=== PATIENT | female | born 1960 | race Caucasian/White ===

== ENCOUNTER 2017-08-27 09:59 | Day surgery (SDC) | payer OTHER ==
--- NOTE | 2017-08-26 09:16 | RAD REPORT ---
EXAM DESCRIPTION: RADOP - Outpt Chest Pa/Lat (2 Views) - 08/26/2017 8:43 am CLINICAL HISTORY: Preop chest, pending cholecystectomy COMPARISON: January 2014 TECHNIQUE: PA and lateral views of the chest were obtained. FINDINGS: The lungs are clear of a focal mass, consolidation or failure. Heart size is normal and c entral vasculature is within normal limits. No pleural effusion or pneumothorax seen. No acute bony f inding noted. No acute aortic finding. IMPRESSION: No acute cardiopulmonary process. No significant change from comparison.
[2017-08-26 10:28] LABS: Absolute Lymphocytes (CBC) 1.6 K/uL (0.7-4.9); Absolute Monocytes 0.4 K/uL (0.1-1.3); Absolute Neutrophil 2.7 K/uL (1.8-8.0); Basophils % 0.6 % (0-1.3); Eosinophils % 2.3 % (0-4.4); Hematocrit 37.4 % (36.0-45.0); Lymphocytes % 33.4 % (15.3-44.8); MCH 25.8 pg (27.0-35.0); MCV 79.9 fL (80-100); Monocytes % 8.5 % (3.3-12.3); RBC Red Blood Cell Count 4.68 M/uL (3.86-4.86)
[2017-08-26 10:30] LABS: Potassium 4.3 mEq/L (3.6-5.0)
--- NOTE | 2017-08-26 12:42 | EKG ---
Test Date: 2017-08-26 Test Time: 08:24:08 Clinical Safety Manager: JOSHUA MEASUREMENT RESULTS: Intervals: Rate: 77 OK: 164 QRSD: 102 QT: 382 QTc: 432 [place]: P: 17 OK: 164 QRS: 16 T: 36 INTERPRETIVE STATEMENTS: Normal sinus rhythm Normal ECG Compared to ECG 02/09/2014 17:18:59 No significant changes Electronically Signed On 08-26-17 12:41:48 CDT by Davis Wood
[2017-08-27] MEDS ORDERED: NA CHLORIDE 0.9% 1,000 ML ONE ×2 (10:26→11:58)
[2017-08-27] MEDS ORDERED: PROPOFOL 200 MG/20 ML VIAL IV ONE (10:45)
[2017-08-27] MEDS ORDERED: FENTANYL CITR 100 MCG/2 ML ONE (10:46)
[2017-08-27] MEDS ORDERED: ROCURONIUM 50 MG/5 ML VIAL IV ONE (10:46)
[2017-08-27] MEDS ORDERED: MIDAZOLAM HCL 2 MG/2 ML INJ ONE (10:46)
[2017-08-27] MEDS ORDERED: LIDOCAINE 2% MPF 5 ML VIAL ONE (10:46)
[2017-08-27] MEDS ORDERED: CEFOXITIN/SWI 1gm 1 GM/10 ML SYR ONE (10:47)
[2017-08-27] MEDS ORDERED: ONDANSETRON 4 MG/2 ML VIAL ONE ×2 (11:30→13:35)
[2017-08-27] MEDS ORDERED: NS 0.9% VIAL 10 ML ONE (11:38)
[2017-08-27] MEDS ORDERED: Phenylephrine HCl 10 MG/ML 1 ML VIAL ONE (11:38)
[2017-08-27] MEDS ORDERED: NEOSTIGMINE 1 MG/ML -5 ML SYRINGE ONE (11:54)
[2017-08-27] MEDS ORDERED: DIPHENHYDRAMINE 50 MG/ML VIAL ONE ×2 (11:54→11:55)
[2017-08-27] MEDS ORDERED: GLYCOPYRROLATE 0.2 MG/ML SYR ONE ×2 (11:55→12:01)
[2017-08-27] MEDS ORDERED: Mastisol Adhesive Liq ONE (12:00)
[2017-08-27] MEDS: MEPERIDINE HCL 50 MG/ML AMP ONE ×2 (12:08→12:20)
[2017-08-27] MEDS: MEPERIDINE HCL 25 MG/0.5 ML ONE ×2 (12:30→12:40)
[2017-08-27] MEDS ORDERED: PROMETHAZINE 25 MG/ML VIAL ONE (12:38)
[2017-08-27 13:14] VITALS: TEMP 98
[2017-08-27 13:38] VITALS: BP 133/84; O2SAT 96
[2017-08-27] MEDS ORDERED: HYDROCODONE/APAP 7.5/325 MG TAB ONE (13:55)
--- NOTE | 2017-08-27 21:39 | OP ---
Date of Procedure: 08/27/2017 Surgeon: Lamine Sher MD Medical Receptionist: Sigrid Merrill, certified REAL ESTATE DIRECTOR. Preoperative Diagnosis: Chronic cholecystitis. Biliary dyskinesia. Postoperative Diagnosis: Chronic cholecystitis. Biliary dyskinesia. Procedure: Laparoscopic cholecystectomy. Estimated Blood Loss: Minimal. Specimen: Gallbladder. Finding: As above. Anesthesia: General. Complications: None. Disposition: The patient tolerated the procedure in stable condition and was taken to Recovery in go od general condition. Procedure In Detail: The patient was brought to the OR and placed in the supine position. General a nesthesia begun. The patient was prepped and draped in usual sterile fashion. Marcaine 0.5% was inf iltrated locally. A 15-blade was used to make a 2 cm supraumbilical midline incision. Subcutaneous tissue divided. The fascia was identified and divided. A #1 Vicryl stay suture was placed. Periton eal cavity was entered with blunt dissection. A 12-mm trocar was placed into the peritoneal cavity u nder direct vision. Pneumoperitoneum was established. Then, three 5-mm trocars placed were; one in the epigastrium just to the right of midline and two in the right subcostal region. Laparoscopy reve aled chronic inflammation of the gallbladder. Fundus retracted superiorly. Infundibulum identified, retracted inferolaterally. Cystic duct and cystic artery were clearly identified with blunt dissect ion. Clips placed. Both structures divided. Cautery was used to remove the gallbladder from the li nino bed. Bleeding on the liver bed was controlled with cautery. The gallbladder was retrieved throu gh the umbilicus via an EndoCatch bag. Right upper quadrant was irrigated. Effluent was clear. No evidence of bleeding or bile leakage appreciated. Subsequently, all trocars were removed under direc t vision. Stay sutures were tied to each other to approximate the fascial defect. Subcutaneous woun ds were irrigated. Bleeding controlled with cautery. A 3-0 chromic used to approximate the subcutan eous tissue and close skin. Sterile dressing was applied. The patient was awakened and taken to Rec overy in good general condition. DISCHARGE NOTE The patient will go to Day Surgery and home when stable. Disposition: Home. Condition: Stable. Discharge Instructions: Resume home medications and diet. Activity as tolerated. No heavy lifting. Remove outer dressing in 2 days. Shower. Keep wound clean and dry. Keep Steri-Strips on at all t imes. Incentive spirometry is ordered. Tylenol No. 3 one tablet p.o. q.4 p.r.n. pain. Follow up in my office in a week. Call for appointment. ETHAN/AZAEL Voice ID: [id number] Report ID: [id number]
== END 2017-08-27 14:00 | disposition home or self-care (01) ==
LOC: OR 09:59
PROVIDERS: ATTEND Surgery
PROC: 0FT44ZZ Resection of Gallbladder, Percutaneous Endoscopic Approach (ICD-10-PCS; principal; 2017-08-27 11:15)
DX: K81.1 Chronic cholecystitis (principal); K82.8 Other specified diseases of gallbladder; E11.9 Type 2 diabetes mellitus without complications; I10 Essential (primary) hypertension; K21.9 Gastro-esophageal reflux disease without esophagitis; E66.9 Obesity, unspecified
CPT/HCPCS: 36415; 71046; 80048; 82962; 85025; 88304; 88305; 93005; J2175; J2250; J2370; J2405; J2550; J2710; J3010; J7030

== ENCOUNTER 2018-03-31 17:01 | Inpatient (IN) | payer OTHER ==
--- NOTE | 2018-03-31 17:52 | RAD REPORT ---
EXAM DESCRIPTION: CT - Stone Protocol - 03/31/2018 5:42 pm CLINICAL HISTORY: Flank pain. ABD PAIN COMPARISON: Abdomen Pelvis W Contrast dated 07/26/2017; Cholangiogram dated 03/27/2018 TECHNIQUE: Axial images were obtained without oral or IV contrast. Lack of contrast limits solid org an and vascular assessment. The [id number] spans the entirety of the system partially obscuring uppermost abdomen and lung bases. Coronal reformatted images were obtained and reviewed. All CT scans are performed using dose optimization technique as appropriate and may include automated exposure control or mA/KV adjustment according to patient size. FINDINGS: The lower lung flores are clear. Cholecystectomy clips. Imaged portions of the liver and spleen show no suspicious findings on non-contrast imaging. The panc reas and adrenal glands are normal. No pathologic lymphadenopathy in the abdomen or pelvis. No urinary tract stones or obstructive uropathy. No bowel obstruction, free air, free fluid or abscess. Normal appendix noted.Scattered colonic divert iculosis without diverticulitis. Moderate lumbosacral degenerative change. IMPRESSION: No urinary tract stones or obstructive uropathy. Colonic diverticulosis without diverticulitis.
[2018-03-31 17:54] LABS: Absolute Lymphocytes (CBC) 2.3 K/uL (0.7-4.9); Absolute Monocytes 0.7 K/uL (0.1-1.3); Absolute Neutrophil 5.4 K/uL (1.8-8.0); Basophils % 0.9 % (0-1.3); Eosinophils % 1.1 % (0-4.4); Hematocrit 39.3 % (36.0-45.0); Lymphocytes % 27.2 % (15.3-44.8); MCH 26.7 pg (27.0-35.0); MCV 80.7 fL (80-100); MPV 8.9 fL (7.6-11.3); Monocytes % 7.8 % (3.3-12.3); RBC Red Blood Cell Count 4.87 M/uL (3.86-4.86)
[2018-03-31] MEDS ORDERED: FENTANYL CITR 100 MCG/2 ML ONE ×2 (18:00→21:00)
[2018-03-31] MEDS ORDERED: ONDANSETRON 4 MG/2 ML VIAL ONE ×2 (18:00→21:00)
[2018-03-31] MEDS ORDERED: NA CHLORIDE 0.9% 1,000 ML ONE (18:00)
[2018-03-31 18:04] LABS: Bilirubin Direct 0.1 mg/dL (0-0.2); Bilirubin Total 0.4 mg/dL (0.2-1.0); Potassium 3.5 mmol/L (3.5-5.1); Protein, Total 8.2 g/dL (6.4-8.2)
--- NOTE | 2018-03-31 19:15 | EDPHYS ---
Physician Documentation [facility] Name: Cristina Cantrell Age: 58 yrs Sex: Female : 1960 Arrival Date: 03/31/2018 Time: 17:05 Bed 5 Private MD: ED Physician Clay Moscoso HPI: 03/31 19:02 This 58 yrs old Female presents to ER via Ambulatory with complaints of gs Abdominal Pain, Vomiting/Diarrhea. 19:02 The patient presents to the emergency department with nausea, vomiting, diarrhea, gs abdominal pain. Onset: The symptoms/episode began/occurred 3 week(s) ago. Possible causes: unknown. The symptoms are aggravated by nothing. The symptoms are alleviated by nothing. Associated signs and symptoms: Pertinent negatives: fever. Severity of symptoms: At their worst the symptoms were moderate in the emergency department the symptoms are unchanged. The patient has experienced similar episodes in the past, a few times. The patient has been recently seen by a physician: Dr. becerra. Historical: - Allergies: 17:08 No Known Allergies; aj - Home Meds: 17:08 lisinopril Oral [Active]; Metformin Oral [Active]; Stool Softener Oral [Active]; aj Vitamin D Oral [Active]; Trintellix Oral [Active]; Dexilant 30 mg oral CpDB 1 cap once daily [Active]; - PMHx: 17:08 Diabetes - NIDDM; Hypertension; Migraines; aj - PSHx: 17:08 Hysterectomy; foot - right; aj - Immunization history:: Adult Immunizations up to date. - Social history:: Smoking status: Patient/guardian denies using tobacco. - Ebola Screening: : Patient negative for fever greater than or equal to 101.5 degrees Fahrenheit, and additional compatible Ebola Virus Disease symptoms Patient denies exposure to infectious person Patient denies travel to an Ebola-affected area in the 21 days before illness onset No symptoms or risks identified at this time. ROS: 19:02 All other systems are negative. gs Exam: 19:02 Head/Face: Normocephalic, atraumatic. Eyes: Pupils equal round and reactive to light, gs extra-ocular motions intact. Lids and lashes normal. Conjunctiva and sclera are non-icteric and not injected. Cornea within normal limits. Periorbital areas with no swelling, redness, or edema. ENT: Nares patent. No nasal discharge, no septal abnormalities noted. Tympanic membranes are normal and external auditory canals are clear. Oropharynx with no redness, swelling, or masses, exudates, or evidence of obstruction, uvula midline. Mucous membranes moist. Neck: Trachea midline, no thyromegaly or masses palpated, and no cervical lymphadenopathy. Supple, full range of motion without nuchal rigidity, or vertebral point tenderness. No Meningismus. Chest/axilla: Normal chest wall appearance and motion. Nontender with no deformity. No lesions are appreciated. Cardiovascular: Regular rate and rhythm with a normal S1 and S2. No gallops, murmurs, or rubs. Normal PMI, no JVD. No pulse deficits. Respiratory: Lungs have equal breath sounds bilaterally, clear to auscultation and percussion. No rales, rhonchi or wheezes noted. No increased work of breathing, no retractions or nasal flaring. Back: No spinal tenderness. No costovertebral tenderness. Full range of motion. Skin: Warm, dry with normal turgor. Normal color with no rashes, no lesions, and no evidence of cellulitis. MS/ Extremity: Pulses equal, no cyanosis. Neurovascular intact. Full, normal range of motion. Neuro: Awake and alert, GCS 15, oriented to person, place, time, and situation. Cranial nerves II-XII grossly intact. Motor strength 5/5 in all extremities. Sensory grossly intact. Cerebellar exam normal. Normal gait. 19:02 Constitutional: The patient appears alert, awake. 19:02 Abdomen/GI: Palpation: mild abdominal tenderness, in all quadrants, rebound tenderness, is not appreciated. Vital Signs: 17:08 BP 127 / 78; Pulse 99; Resp 17; Temp 97.2; Pulse Ox 99% on R/A; Weight 122.47 kg; aj Height 5 ft. 11 in. (180.34 cm); 17:27 BP 128 / 75; Pulse 98; Resp 18; Pulse Ox 98% on R/A; hj 18:21 BP 102 / 69; Pulse 80; Resp 15; Pulse Ox 97% on R/A; hb 19:15 BP 115 / 70; Pulse 80; Resp 16; Pulse Ox 97% on R/A; ea 20:45 BP 110 / 68; Pulse 78; Resp 16; Pulse Ox 98% on R/A; ea 21:30 BP 120 / 70; Pulse 82; Resp 17; Temp 97.4; Pulse Ox 97% on R/A; Pain 2/10; ea 17:08 Body Mass Index 37.66 (122.47 kg, 180.34 cm) aj MDM: 17:32 Patient medically screened. 19:02 Differential diagnosis: Nonspecific abd pain, gastritis, viral gastroenteritis, gs gastroenteritis. Data reviewed: vital signs, nurses notes. Physician consultation: Hussein Becerra MD would like admission per Dr. Vinnie Jasmine MD. 03/31 17:33 Order name: Basic Metabolic Panel; Complete Time: 18:40 03/31 17:33 Order name: CBC with Diff; Complete Time: 18:40 03/31 17:33 Order name: Hepatic Function; Complete Time: 18:40 03/31 17:33 Order name: Lipase; Complete Time: 18:40 03/31 17:33 Order name: CDIFF 03/31 17:33 Order name: Stool Culture 03/31 17:33 Order name: CT Stone Protocol; Complete Time: 17:57 03/31 19:24 Order name: CONS Physician Consult [facility] 03/31 19:24 Order name: Giardia Antigen Screen EDIA 03/31 17:33 Order name: IV Saline Lock; Complete Time: 17:34 03/31 17:33 Order name: Labs collected and sent; Complete Time: 17:34 Administered Medications: 17:51 Drug: fentaNYL (PF) 50 mcg Route: IVP; Site: right antecubital; hj 19:00 Follow up: Response: No adverse reaction; Pain is decreased ea 17:51 Drug: Zofran 4 mg Route: IVP; Site: right antecubital; hj 19:00 Follow up: Response: No adverse reaction; Marked relief of symptoms ea 17:51 Drug: NS 0.9% 1000 ml Route: IV; Rate: 1 bolus; Site: right antecubital; hj 19:15 Follow up: Response: No adverse reaction; IV Status: Completed infusion; IV Intake: ea 1000ml 21:00 Drug: Zofran 4 mg Route: IVP; Site: right antecubital; ea 21:35 Follow up: Response: No adverse reaction; Marked relief of symptoms ea 21:00 Drug: fentaNYL (PF) 50 mcg Route: IVP; Site: right antecubital; ea 21:35 Follow up: Response: No adverse reaction; Marked relief of symptoms; Pain is decreased ea Disposition: 03/31/18 19:14 Hospitalization ordered by Vinnie Jasmine for Observation. Preliminary diagnosis are Vomiting, Diarrhea, unspecified. - Bed requested for Telemetry/MedSurg (observation). - Status is Observation. ea - Condition is Stable. - Problem is new. - Symptoms have improved. UTI on Admission? No Signatures: Dispatcher [employer] EDMS Kristin Maciel, RN Mary Anne Hernandez ms Josué, Russ, RN Janie Banerjee RN Clay Iyer ea, MD MD gs Corrections: (The following items were deleted from the chart) 20:49 19:14 Hospitalization Ordered by Vinnie Jasmine MD for Observation. Preliminary ms diagnosis is Vomiting; Diarrhea, unspecified. Bed requested for Telemetry/MedSurg (observation). Status is Observation. Condition is Stable. Problem is new. Symptoms have improved. UTI on Admission? No. gs 20:49 20:49 03/31/2018 19:14 Hospitalization Ordered by Vinnie Jasmine MD for Observation. ms Preliminary diagnosis is Vomiting; Diarrhea, unspecified. Bed requested for Telemetry/MedSurg (observation). Status is Observation. Condition is Stable. Problem is new. Symptoms have improved. UTI on Admission? No. ms 21:42 20:49 03/31/2018 19:14 Hospitalization Ordered by Vinnie Jasmine MD for Observation. ea Preliminary diagnosis is Vomiting; Diarrhea, unspecified. Bed requested for Telemetry/MedSurg (observation). Status is Observation. Condition is Stable. Problem is new. Symptoms have improved. UTI on Admission? No. ms
--- NOTE | 2018-03-31 19:15 | ER ---
Nurse's Notes [facility] Name: Cristina Cantrell Age: 58 yrs Sex: Female : 1960 Arrival Date: 03/31/2018 Time: 17:05 Bed 5 Private MD: Diagnosis: Vomiting;Diarrhea, unspecified Presentation: 03/31 17:06 Presenting complaint: Patient states: Diarrhea, nausea, right side abdominal pain for 3 aj weeks with worsening symptoms 1 week ago. Patient also reports bleeding from rectum. Transition of care: patient was not received from another setting of care. Onset of symptoms was March 10, 2018. Risk Assessment: Do you want to hurt yourself or someone else? Patient reports no desire to harm self or others. Initial Sepsis Screen: Does the patient meet any 2 criteria? No. Patient's initial sepsis screen is negative. Does the patient have a suspected source of infection? No. Patient's initial sepsis screen is negative. Care prior to arrival: None. 17:06 Method Of Arrival: Ambulatory aj 17:06 Acuity: JOON 3 aj Triage Assessment: 17:08 General: Appears in no apparent distress. uncomfortable, Behavior is calm, cooperative, aj appropriate for age. Pain: Complains of pain in right upper quadrant and right lower quadrant. Neuro: Level of Consciousness is awake, alert, obeys commands, Oriented to person, place, time, situation, Appropriate for age. Respiratory: Airway is patent Respiratory effort is even, unlabored, Respiratory pattern is regular, symmetrical. GI: Abdomen is obese, Reports lower abdominal pain, upper abdominal pain, diarrhea, rectal bleeding, hemorrhoids, nausea. Derm: Skin is intact, is healthy with good turgor, Skin is pink, warm \T\ dry. normal. Historical: - Allergies: 17:08 No Known Allergies; aj - Home Meds: 17:08 lisinopril Oral [Active]; Metformin Oral [Active]; Stool Softener Oral [Active]; aj Vitamin D Oral [Active]; Trintellix Oral [Active]; Dexilant 30 mg oral CpDB 1 cap once daily [Active]; - PMHx: 17:08 Diabetes - NIDDM; Hypertension; Migraines; aj - PSHx: 17:08 Hysterectomy; foot - right; aj - Immunization history:: Adult Immunizations up to date. - Social history:: Smoking status: Patient/guardian denies using tobacco. - Ebola Screening: : Patient negative for fever greater than or equal to 101.5 degrees Fahrenheit, and additional compatible Ebola Virus Disease symptoms Patient denies exposure to infectious person Patient denies travel to an Ebola-affected area in the 21 days before illness onset No symptoms or risks identified at this time. Screenin:16 Abuse screen: Denies threats or abuse. Denies injuries from another. Nutritional hj screening: No deficits noted. Tuberculosis screening: No symptoms or risk factors identified. Fall Risk None identified. Assessment: 17:16 GI: Bowel sounds present X 4 quads. Abd is soft Abdomen is tender to palpation. hj 17:38 Reassessment: wheeled to CT:. hj 18:06 Reassessment: Patient and/or family updated on plan of care and expected duration. Pain hj level reassessed. Patient is alert, oriented x 3, equal unlabored respirations, skin warm/dry/pink. awaiting results and POC:. 18:07 Reassessment: CT stone neg;. hj 18:45 Reassessment: Patient appears in no apparent distress at this time. Patient and/or hb family updated on plan of care and expected duration. Pain level reassessed. Patient is alert, oriented x 3, equal unlabored respirations, skin warm/dry/pink. 19:18 General: Appears in no apparent distress. Behavior is calm, cooperative, appropriate ea for age. Pain: Denies pain. Neuro: Level of Consciousness is awake, alert, obeys commands, Oriented to person, place, time, situation. Cardiovascular: Patient's skin is warm and dry. Respiratory: Airway is patent Respiratory effort is even, unlabored, Respiratory pattern is regular, symmetrical, Breath sounds are clear. GI: Bowel sounds present X 4 quads. Abdomen is tender to palpation X 4 quads. Derm: Skin is pink, warm \T\ dry. 20:27 Reassessment: Patient and/or family updated on plan of care and expected duration. Pain ea level reassessed. Patient is alert, oriented x 3, equal unlabored respirations, skin warm/dry/pink. 21:21 Reassessment: Report given to Shania ALVARENGA ea 21:33 Reassessment: Patient and/or family updated on plan of care and expected duration. Pain ea level reassessed. Patient is alert, oriented x 3, equal unlabored respirations, skin warm/dry/pink. Vital Signs: 17:08 BP 127 / 78; Pulse 99; Resp 17; Temp 97.2; Pulse Ox 99% on R/A; Weight 122.47 kg; aj Height 5 ft. 11 in. (180.34 cm); 17:27 BP 128 / 75; Pulse 98; Resp 18; Pulse Ox 98% on R/A; hj 18:21 BP 102 / 69; Pulse 80; Resp 15; Pulse Ox 97% on R/A; hb 19:15 BP 115 / 70; Pulse 80; Resp 16; Pulse Ox 97% on R/A; ea 20:45 BP 110 / 68; Pulse 78; Resp 16; Pulse Ox 98% on R/A; ea 21:30 BP 120 / 70; Pulse 82; Resp 17; Temp 97.4; Pulse Ox 97% on R/A; Pain 2/10; ea 17:08 Body Mass Index 37.66 (122.47 kg, 180.34 cm) ED Course: 17:05 Patient arrived in ED. mr 17:07 Triage completed. aj 17:08 Arm band placed on left wrist. Patient placed in an exam room. aj 17:10 Clay Moscoso MD is Attending Physician. gs 17:15 Russ Moses RN is Primary Nurse. hj 17:17 Patient has correct armband on for positive identification. Placed in gown. Bed in low hj position. Call light in reach. Side rails up X 1. 17:27 No provider procedures requiring assistance completed. Initial lab(s) drawn, by me. hj Inserted saline lock: 22 gauge in right antecubital area, using aseptic technique. Blood collected. 17:[address] nj 17:42 CT Stone Protocol In Process Unspecified. EDMS 19:13 Vinnie Jasmine MD is Hospitalizing Provider. gs 21:23 Patient admitted, IV remains in place. ea Administered Medications: 17:51 Drug: fentaNYL (PF) 50 mcg Route: IVP; Site: right antecubital; hj 19:00 Follow up: Response: No adverse reaction; Pain is decreased ea 17:51 Drug: Zofran 4 mg Route: IVP; Site: right antecubital; hj 19:00 Follow up: Response: No adverse reaction; Marked relief of symptoms ea 17:51 Drug: NS 0.9% 1000 ml Route: IV; Rate: 1 bolus; Site: right antecubital; hj 19:15 Follow up: Response: No adverse reaction; IV Status: Completed infusion; IV Intake: ea 1000ml 21:00 Drug: Zofran 4 mg Route: IVP; Site: right antecubital; ea 21:35 Follow up: Response: No adverse reaction; Marked relief of symptoms ea 21:00 Drug: fentaNYL (PF) 50 mcg Route: IVP; Site: right antecubital; ea 21:35 Follow up: Response: No adverse reaction; Marked relief of symptoms; Pain is decreased ea Intake: 19:15 IV: 1000ml; Total: 1000ml. ea Outcome: 19:14 Decision to Hospitalize by Provider. gs 21:22 Admitted to Med/surg accompanied by tech, room 206, Report called to Shania BENSON ea 21:22 Condition: stable 21:22 Instructed on the need for admit, Demonstrated understanding of instructions. 21:42 Patient left the ED. ea Signatures: Dispatcher [employer] EDKristin Gonzalez, RN Sanjuanita Lopez Henry, RN RN hj Baxter, Heather, RN RN hb Jordan, Nathan nj Antunez, Elena, RN RN ea Starr, Gregory, MD MD
[2018-03-31] MEDS ORDERED: ONDANSETRON 4 MG/2 ML VIAL IV PRN (20:17)
[2018-03-31] MEDS ORDERED: MAGNESIUM HYDROXIDE 8% 30 ML PO PRN (20:17)
[2018-03-31 21:59] VITALS: BMI 38.3
[2018-03-31] MEDS: NA CHLORIDE 0.9% 1,000 ML IV SCH (22:34)
[2018-03-31 23:21] LABS: Urine Appearance CLEAR; Urine Bilirubin NEGATIVE (NEG); Urine Blood NEGATIVE (NEG); Urine Color YELLOW; Urine Glucose NEGATIVE (NEG); Urine Protein NEGATIVE (NEG); Urine Urobilinogen 0.2 mg/dL (0.2-1.0)
[2018-03-31 23:39] LABS: Urine Microscopic Reflex ORDER UMIC
[2018-04-01 00:33] LABS: Urine Bacteria <20 /HPF (<20); Urine Culture Reflex Order REFLEXED; Urine Mucus MOD /HPF (NONE SEEN); Urine RBC NONE SEEN /HPF (NONE SEEN)
[2018-04-01] MEDS: NA CHLORIDE 0.9% 1,000 ML IV SCH ×5 (05:11→23:40)
[2018-04-01] MEDS: ACETAMINOPHEN 500 MG TAB PO PRN (05:11)
[2018-04-01 05:12] LABS: Absolute Lymphocytes (CBC) 1.7 K/uL (0.7-4.9); Absolute Monocytes 0.5 K/uL (0.1-1.3); Absolute Neutrophil 2.4 K/uL (1.8-8.0); Basophils % 0.9 % (0-1.3); Hematocrit 33.3 % (36.0-45.0); Lymphocytes % 35.9 % (15.3-44.8); MCH 26.7 pg (27.0-35.0); MCV 80.1 fL (80-100); MPV 8.5 fL (7.6-11.3); Monocytes % 9.9 % (3.3-12.3); RBC Red Blood Cell Count 4.15 M/uL (3.86-4.86)
[2018-04-01 05:37] LABS: Albumin 3.3 g/dL (3.4-5.0); Bilirubin Total 0.4 mg/dL (0.2-1.0); Magnesium 1.9 mg/dL (1.8-2.4); Phosphorus 4.4 mg/dL (2.5-4.9); Potassium 3.5 mmol/L (3.5-5.1); Protein, Total 6.3 g/dL (6.4-8.2)
[2018-04-01] MEDS ORDERED: POTASSIUM CL SA 10 MEQ TAB PO ONE (06:06)
[2018-04-01] MEDS ORDERED: SUMATRIPTAN SUCC 6MG/0.5ML VIAL SQ ONE (06:11)
--- NOTE | 2018-04-01 06:19 | P.HP ---
Certification for Inpatient Patient admitted to: Observation With expected LOS: <2 Midnights Practitioner: I am a practitioner with admitting privileges, knowledge of patient current condition, hospital course, and medical plan of care. Services: Services provided to patient in accordance with Admission requirements found in Title 42 Section 412.3 of the Code of Federal Regulations Patient History Date of Service: 03/31/18 Reason for admission: Abdominal pain and intractable nausea and vomiting History of Present Illness: Patient is a 58-year-old female who is been having some abdominal discomfort along with intractable nausea and vomiting for the last 4-5 days. She saw her GI doctor in the did a MRCP which was negative. She is scheduled for follow-up this morning. On her follow-up appointment she was having nausea and vomiting and was told to go to the ER. In the emergency room her workup did not reveal any significant abnormalities. She did have an elevated lipase level. She had a history of cholecystectomy a few months ago. Since then she had been doing fine up until this episode of pain. Currently she is doing better with no new complaints. Will admit her to the hospital for observation and recheck her lipase level in the morning. If this is doing better and her pain is improved, we will advance her diet and if she tolerates possible discharge. Allergies No Known Allergies Allergy (Verified 03/31/18 23:07) Home Medications: Cetirizine HCl [Zyrtec] 10 mg PO DAILY 03/31/18 Docusate Sodium [Stool Softener] 100 mg PO DAILY 03/31/18 Doxycycline Monohydrate [Doxycycline Ir-Dr] 1 tab PO DAILY 03/31/18 Esomeprazole Mag Trihydrate [Nexium] 1 tab PO DAILY 03/31/18 Lisinopril/Hydrochlorothiazide [Lisinopril-Hctz 20-12.5 mg Tab] 1 tab PO DAILY 03/31/18 Metformin ER [Glucophage ER] 500 mg PO DAILY 03/31/18 Turmeric/Turmeric Root Extract [Turmeric 500 mg Capsule] 720 mg PO DAILY Vortioxetine Hydrobromide [Brintellix] 20 mg PO DAILY 03/31/18 - Past Medical/Surgical History Diabetic: Yes -: HTN -: diabetes type 2 -: migraine -: gerd -: EGD -: partial hysterectomy -: Cholecystectomy - Family History Mother Medical History: Diabetes, Cancer Father Medical History: Cancer - Social History Smoking Status: Never smoker Alcohol use: No CD- Drugs: No Caffeine use: Yes Place of Residence: Home Review of Systems 10-point ROS is otherwise unremarkable Physical Examination - Vital Signs Temperature: 97.3 F Blood Pressure: 117/62 Pulse: 63 Respirations: 18 Pulse Ox (%): 96 - Physical Exam General: Alert, In no apparent distress, Oriented x3 HEENT: Atraumatic, PERRLA, Mucous membr. moist/pink, EOMI, Sclerae nonicteric Neck: Supple, 2+ carotid pulse no bruit, No LAD, Without JVD or thyroid abnormality Respiratory: Clear to auscultation bilaterally, Normal air movement Cardiovascular: Regular rate/rhythm, Normal S1 S2, No murmurs Gastrointestinal: Normal bowel sounds, Soft and benign, Distended, Tenderness ( Epigastric tenderness) Musculoskeletal: No tenderness Integumentary: No rashes Neurological: Normal gait, Normal speech, Normal strength at 5/5 x4 extr, Normal tone, Sensation intact, Cranial nerves 3-12 intact, Normal affect Lymphatics: No axilla or inguinal lymphadenopathy - Studies Laboratory Data (last 24 hrs) 03/31/18 17:30: WBC 8.6 D, Hgb 13.0, Hct 39.3, Plt Count 275 D 03/31/18 17:30: Sodium 136, Potassium 3.5, BUN 21 H, Creatinine 1.00, Glucose 109 H, Total Bilirubin 0.4, AST 182 H, ALT 229 H, Alkaline Phosphatase 74, Lipase 497 H Assessment & Plan - Problems (Diagnosis) (1) Headache, migraine, intractable Current Visit: Yes Status: Acute (2) Nausea and vomiting Current Visit: No Status: Acute (3) Right upper quadrant abdominal pain Current Visit: No Status: Acute - Plan 1. Continue with IV hydration 2. Continue with IV antibiotics 3. Continue with pain control 4. NPO 5. General surgery consultation; may need endoscopy if pain is not improving 6. Serial H&H, and we will monitor CBC, BMP, LFTs and lipase along with electrolytes. 7. Will give her a dose of Imitrex subcutaneous. If her pain does not improve then she can take her own home medications. 8. GI and DVT prophylaxis Discharge Plan: Home Plan to discharge in: 48 Hours - Advance Directives Does patient have a Living Will: No Does patient have a Durable POA for Healthcare: No - Code Status/Comfort Care Code Status Assessed: Yes Code Status: Full Code Critical Care: No Time Spent Managing PTS Care (In Minutes): 50
[2018-04-01] MEDS: PANTOPRAZOLE 40MG TABLET PO SCH (06:48)
[2018-04-01] MEDS: HOME MED 1 EA UNK (Vortioxetine Hydrobromide [Trintellix] 20 MG) PO SCH (09:00)
[2018-04-01] MEDS: METFORMIN ER 500 MG TAB PO SCH (09:00)
[2018-04-01] MEDS ORDERED: HOME MED 1 EA UNK (Esomeprazole Mag Trihydrate [Nexium] 1 TAB) PO SCH (09:00)
[2018-04-01] MEDS: DOCUSATE NA 100 MG CAP PO SCH (09:00)
[2018-04-01] MEDS: ENOXAPARIN 40 MG/0.4 ML SQ SCH (09:00)
--- NOTE | 2018-04-01 12:45 | P.PN ---
Subjective Date of Service: 04/01/18 Chief Complaint: Abdominal pain and intractable nausea and vomiting Patient seen and examined at bedside. No family at bedside. Chart reviewed and Case discussed with nursing staff and Dr. becerra. Patient still complaining of diffuse abdominal pain, intermittent nausea. No episodes of diarrhea that she has not eaten anything so far. States she is hungry. She states that since her cholecystectomy 6 months ago, she has had intermittent diarrhea mostly after eating, intermittent nausea but in the past couple of days this has progressively worsened and she is now nauseous all the time even without food, still has diarrhea only after eating. Still complaining of diffuse abdominal pain and right lower quadrant abdominal cramping. Denies any chest pain, shortness of breath, fevers, chills, headache, vision changes. Review of Systems As noted above Gastrointestinal: Nausea, Vomiting, Abdominal Pain, Diarrhea, As per HPI Physical Examination - Vital Signs Temperature: 97.1 F Blood Pressure: 124/58 Pulse: 64 Respirations: 17 Pulse Ox (%): 95 - Physical Exam General: Alert, In no apparent distress HEENT: Atraumatic, PERRLA, EOMI Neck: Supple, JVD not distended Respiratory: Clear to auscultation bilaterally, Normal air movement Cardiovascular: Regular rate/rhythm, Normal S1 S2 Gastrointestinal: Non-distended, No rebound, No guarding, Tenderness (Diffuse tenderness on palpation) Musculoskeletal: No tenderness Integumentary: No rashes Neurological: Normal speech, Normal tone, Normal affect - Studies Laboratory Data (last 24 hrs) 03/31/18 17:30: WBC 8.6 D, Hgb 13.0, Hct 39.3, Plt Count 275 D 03/31/18 17:30: Sodium 136, Potassium 3.5, BUN 21 H, Creatinine 1.00, Glucose 109 H, Total Bilirubin 0.4, AST 182 H, ALT 229 H, Alkaline Phosphatase 74, Lipase 497 H Assessment And Plan - Plan This is a 58-year-old female with: - Abdominal pain: Per patient, this is a chronic issue that she has had since her cholecystectomy. Could be secondary to infectious versus IBD versus colonic etiology. CT with Colonic diverticulosis without diverticulitis. Advanced to clear liquid diet, will advance as tolerated. Lipase trending down, we will continue to monitor. Stool studies pending, will follow up GI consulted, recommendations appreciated. Pending EGD tomorrow. - Nausea/vomiting: Patient without any episodes of vomiting, though states she feels nauseous. Will continue Zofran as needed. - History of migraines: Stable, denies any headache at this time. She is status post 1 time dose of sumatriptan. Will continue to monitor. - History of hypertension: Patient with a history of hypertension, on lisinopril/hydrochlorothiazide at home. Will hold medication as her blood pressures have been in the low to normal range. Will restart medications as necessary. - Diabetes mellitus, type 2, without complication: Patient with a history of diabetes type 2 on metformin at home. Restart home metformin. Continue Accu-Cheks. - History of depression: Stable, restart home medication, vortioxetine 20 mg p.o. daily. DVT prophylaxis: Lovenox GI prophylaxis: Protonix Diet: Clear liquid diet, advance as tolerated Disposition: Pending EGD and symptomatic improvement. Physician Review: Patient Assessed, Agree with Above Assessment and Plan Time Spent Managing PTS Care (In Minutes): 45
[2018-04-01] MEDS: PROMETHAZINE 25 MG/ML VIAL IV PRN ×2 (13:08→21:58)
[2018-04-01] MEDS: CHOLESTYRAMINE/ASP 4 GM/PKT PO SCH (17:00)
[2018-04-02] MEDS: NA CHLORIDE 0.9% 1,000 ML IV SCH ×4 (02:54→21:10)
[2018-04-02] MEDS: PANTOPRAZOLE 40MG TABLET PO SCH (05:42)
[2018-04-02 05:55] LABS: Potassium 3.7 mmol/L (3.5-5.1)
[2018-04-02] MEDS ORDERED: KCL 20 MEQ/100 mL IVPB 20 MEQ/100 ML BAG IV SCH (07:30)
[2018-04-02] MEDS: HOME MED 1 EA UNK (Vortioxetine Hydrobromide [Trintellix] 20 MG) PO SCH (09:00)
[2018-04-02] MEDS ORDERED: HOME MED 1 EA UNK (Lisinopril/Hydrochlorothiazide [Lisinopril-Hctz 20-12.5 Mg Tab] 1 TAB) PO SCH (09:00)
[2018-04-02] MEDS ORDERED: NA CHLORIDE 0.9% 1,000 ML ONE (11:49)
[2018-04-02] MEDS ORDERED: PROPOFOL 200 MG/20 ML VIAL IV ONE (12:24)
[2018-04-02] MEDS ORDERED: LIDOCAINE 1% MPF 2 ML AMPULE ONE (12:24)
--- NOTE | 2018-04-02 12:52 | ENDO RPT ---
[address], [address] EGD PROCEDURE REPORT EXAM DATE: 04/02/2018 PATIENT NAME: Cristina Cantrell MR#: [id number] BIRTHDATE: 1960 ATTENDING: Hussein Reese Dr STATUS: inpatient - [facility] [employer] CONSULTANT: Jaqueline Park and Anahi Yang RN INDICATIONS: The patient is a 58 yr old Female here for an EGD due to nausea, mid epigastric abdominal pain, chronic unexplained diarrhea, and weight loss PROCEDURE PERFORMED: EGD with biopsy MEDICATIONS: Per Anesthesia. TOPICAL ANESTHETIC: none CONSENT: The patient understands the risks and benefits of the procedure and understands that these risks include, but are not limited to: sedation, allergic reaction, infection, perforation and/or bleeding. Alternative means of evaluation and treatment include, among others: physical exam, x-rays, and/or surgical intervention. The patient elects to proceed with this endoscopic procedure. DESCRIPTION OF PROCEDURE: During intra-op preparation period all mechanical medical equipment was checked for proper function. Hand hygiene and appropriate measures for infection prevention was taken. Procedure, possible complications, and alternatives including but not limited to the possibility of bleeding, perforation, tear, infection, sepsis, need for surgery, need for blood transfusion, and anesthesia related complications were explained to the patient. After the risks, benefits and alternatives of the procedure were thoroughly explained, Informed consent was verified, confirmed and timeout was successfully executed by the treatment team. The patient was placed in the left lateral position. The patient was anesthetized with topical anesthesia. Through the anesthetized oropharyngeal area, the scope was passed without any difficulty. The Pentax EG-[id number] ([id number]) endoscope was introduced through the mouth and advanced to the third portion of the duodenum. Retroflexed views revealed a small hiatal hernia. The gastroscope was then slowly withdrawn and removed. LA Class A esophagitis was found in the lower esophagus. A small hiatal hernia was found Mild gastritis was found in the body and the antrum of the stomach. Multiple biopsies were obtained and sent to pathology. A pedunculated polyp was found in the body of the stomach. With jumbo forceps, a biopsy was obtained and sent to pathology. Multiple erosions were found in the antrum. ADVERSE EVENTS: There were no complications. IMPRESSIONS: 1. LA Class A esophagitis in the lower esophagus 2. Small hiatal hernia 3. Mild gastritis in the body and the antrum of the stomach, s/p biopsies 4. Multiple ( 20) 2-9 mm sessile / pedunculated polyps in the body of the stomach, s/p biopsy 5. Multiple (3) erosions in the pre-pyloric antrum RECOMMENDATIONS: 1. await biopsy results 2. acid suppression therapy REPEAT EXAM: Hussein Reese Dr eSigned: Hussein Reese Dr 04/02/2018 12:43 PM cc: CPT CODES: ICD9 CODES: PATIENT NAME: Cristina Cantrell MR#: [id number]
[2018-04-02] MEDS ORDERED: LOPERAMIDE HCL 2 MG CAPSULE PO PRN (13:05)
--- NOTE | 2018-04-02 13:10 | P.PN ---
Subjective Date of Service: 04/02/18 Chief Complaint: Abdominal pain and intractable nausea and vomiting Patient seen and examined at bedside. No family at bedside. Chart reviewed and Case discussed with nursing staff and Dr. becerra. Patient still complaining of diffuse abdominal pain, intermittent nausea. Tried clear liquids yesterday though had diarrhea after clear liquids. She is pending the EGD today with Dr. stewart. Denies any chest pain, shortness of breath, fevers, chills, headache, vision changes. Review of Systems As noted above Physical Examination - Vital Signs Temperature: 98.3 F Blood Pressure: 141/77 Pulse: 66 Respirations: 18 Pulse Ox (%): 98 - Physical Exam General: Alert, In no apparent distress HEENT: Atraumatic, PERRLA, EOMI Neck: Supple, JVD not distended Respiratory: Clear to auscultation bilaterally, Normal air movement Cardiovascular: Regular rate/rhythm, Normal S1 S2 Gastrointestinal: Normal bowel sounds, Tenderness (Diffuse with deep palpation) Musculoskeletal: No tenderness Integumentary: No rashes Neurological: Normal speech, Normal tone, Normal affect Lymphatics: No axilla or inguinal lymphadenopathy Assessment And Plan - Plan This is a 58-year-old female with: - Abdominal pain: Per patient, this is a chronic issue that she has had since her cholecystectomy. Could be secondary to infectious versus IBD versus colonic etiology. CT with Colonic diverticulosis without diverticulitis. Advanced to clear liquid diet, will advance as tolerated. Lipase trending down, we will continue to monitor. C. diff negative. Other stool studies pending, will follow up. Pending C8-19 and viral study labs, will follow up. GI consulted, recommendations appreciated. Pending EGD today. - Nausea/vomiting: Patient without any episodes of vomiting, though states she feels nauseous. Will continue Zofran as needed. - History of migraines: Stable, denies any headache at this time. She is status post 1 time dose of sumatriptan on admission. Will continue to monitor. - History of hypertension: Patient with a history of hypertension, on lisinopril/hydrochlorothiazide at home. Will hold medication as her blood pressures have been in the low to normal range. Will restart medications as necessary. - Diabetes mellitus, type 2, without complication: Patient with a history of diabetes type 2 on metformin at home. Restart home metformin. Continue Accu-Cheks. - History of depression: Stable, restart home medication, vortioxetine 20 mg p.o. daily. DVT prophylaxis: Lovenox GI prophylaxis: Protonix Diet: Clear liquid diet, advance as tolerated Disposition: Pending EGD and symptomatic improvement. Physician Review: Patient Assessed, Agree with Above Assessment and Plan
[2018-04-02] MEDS: CHOLESTYRAMINE/ASP 4 GM/PKT PO SCH ×2 (13:37→16:38)
[2018-04-02] MEDS: ENOXAPARIN 40 MG/0.4 ML SQ SCH (13:38)
[2018-04-02] MEDS: METFORMIN ER 500 MG TAB PO SCH (13:38)
[2018-04-02] MEDS: CETIRIZINE HCL 5 MG TABLET PO SCH (13:38)
[2018-04-02] MEDS: DOCUSATE NA 100 MG CAP PO SCH (13:38)
[2018-04-02] MEDS: ONDANSETRON 4 MG/2 ML VIAL IV SCH (15:02)
[2018-04-02] MEDS ORDERED: PANTOPRAZOLE IV SCH (21:00)
[2018-04-02] MEDS ORDERED: NA CHLORIDE 0.9% IV SCH (21:00)
[2018-04-02] MEDS: PANTOPRAZOLE 40 MG INJ IV SCH (21:11)
[2018-04-02] MEDS: SODIUM CHLORIDE 0.9% 10ML INJ IV SCH (21:13)
[2018-04-03] MEDS: NA CHLORIDE 0.9% 1,000 ML IV SCH ×4 (04:29→21:03)
[2018-04-03 06:11] LABS: Potassium 4.1 mmol/L (3.5-5.1)
[2018-04-03] MEDS: CHOLESTYRAMINE/ASP 4 GM/PKT PO SCH ×2 (08:00→18:13)
[2018-04-03] MEDS: HOME MED 1 EA UNK (Vortioxetine Hydrobromide [Trintellix] 20 MG) PO SCH (09:00)
[2018-04-03] MEDS: DOCUSATE NA 100 MG CAP PO SCH (09:00)
[2018-04-03] MEDS: ENOXAPARIN 40 MG/0.4 ML SQ SCH (13:19)
[2018-04-03] MEDS: METFORMIN ER 500 MG TAB PO SCH (13:19)
[2018-04-03] MEDS: CETIRIZINE HCL 5 MG TABLET PO SCH (13:20)
[2018-04-03] MEDS: SODIUM CHLORIDE 0.9% 10ML INJ IV SCH ×2 (13:22→21:03)
[2018-04-03] MEDS: PANTOPRAZOLE 40 MG INJ IV SCH ×2 (13:22→21:02)
[2018-04-03] MEDS: ONDANSETRON 4 MG/2 ML VIAL IV SCH ×2 (13:33→22:28)
[2018-04-03] MEDS ORDERED: METOCLOPRAMIDE 10 MG/2mL INJ IV PRN (17:45)
--- NOTE | 2018-04-03 17:53 | P.PN ---
Subjective Date of Service: 04/03/18 Chief Complaint: Abdominal pain and intractable nausea and vomiting Patient seen and examined at bedside. at bedside. Chart reviewed and Case discussed with nursing staff and Dr. becerra. Patient still complaining of diffuse abdominal pain, intermittent nausea, improved from yesterday. She is pending a gastric emptying studying. Denies any chest pain, shortness of breath , fevers, chills, headache, vision changes. Review of Systems As Noted Physical Examination - Vital Signs Temperature: 97.5 F Blood Pressure: 131/73 Pulse: 68 Respirations: 20 Pulse Ox (%): 96 - Physical Exam General: Alert, In no apparent distress, Oriented x3 HEENT: Atraumatic, PERRLA, EOMI Neck: Supple, JVD not distended Respiratory: Clear to auscultation bilaterally, Normal air movement Cardiovascular: Regular rate/rhythm, Normal S1 S2 Gastrointestinal: Normal bowel sounds, Tenderness Musculoskeletal: No tenderness Integumentary: No rashes Neurological: Normal speech, Normal tone, Normal affect - Studies Microbiology Data (last 24 hrs): 04/01/18 10:04 Stool Culture & Sensitivity - Final 03/31/18 21:55 Clean Catch Urine [place] Count - Final BETWEEN 10,000 & 100,000 CFU/ML 03/31/18 21:55 Clean Catch Urine - Final Assessment And Plan - Plan This is a 58-year-old female with: - Abdominal pain: Per patient, this is a chronic issue that she has had since her cholecystectomy. Could be secondary to infectious versus IBD versus colonic etiology. CT with Colonic diverticulosis without diverticulitis. Advanced to clear liquid diet, will advance as tolerated. Lipase trending down, we will continue to monitor. C. diff negative. Other stool studies pending, will follow up. Pending CA-19 and viral study labs, will follow up. GI consulted, recommendations appreciated. Pending Gastric studying test. Attempted today, but pt ate this am so unable to do test today. pending on saturday - Nausea/vomiting: Patient without any episodes of vomiting, though states she feels nauseous. Will continue Zofran as needed. - History of migraines: Stable, denies any headache at this time. She is status post 1 time dose of sumatriptan on admission. Will continue to monitor. - History of hypertension: Patient with a history of hypertension, on lisinopril/hydrochlorothiazide at home. Will hold medication as her blood pressures have been in the low to normal range. Will restart medications as necessary. - Diabetes mellitus, type 2, without complication: Patient with a history of diabetes type 2 on metformin at home. Restart home metformin. Continue Accu-Cheks. - History of depression: Stable, restart home medication, vortioxetine 20 mg p.o. daily. DVT prophylaxis: Lovenox GI prophylaxis: Protonix Diet: Clear liquid diet, advance as tolerated Disposition: Pending Gastric studying test on Saturday and symptomatic improvement. Physician Review: Patient Assessed, Agree with Above Assessment and Plan Time Spent Managing PTS Care (In Minutes): 35
[2018-04-03] MEDS ORDERED: MAGNESIUM CITRATE 300 ML BOT PO SCH (18:00)
[2018-04-03] MEDS ORDERED: GOLYTELY 4000 ML PO SCH (18:00)
[2018-04-03] MEDS: ALPRAZOLAM 0.25 MG TABLET PO PRN (22:28)
[2018-04-04] MEDS: NA CHLORIDE 0.9% 1,000 ML IV SCH ×2 (05:07→11:40)
[2018-04-04] MEDS: ACETAMINOPHEN 500 MG TAB PO PRN (05:08)
[2018-04-04] MEDS: CHOLESTYRAMINE/ASP 4 GM/PKT PO SCH ×2 (08:00→17:00)
[2018-04-04] MEDS: CETIRIZINE HCL 5 MG TABLET PO SCH (09:00)
[2018-04-04] MEDS: ENOXAPARIN 40 MG/0.4 ML SQ SCH (09:00)
[2018-04-04] MEDS: METFORMIN ER 500 MG TAB PO SCH (09:00)
[2018-04-04] MEDS: HOME MED 1 EA UNK (Vortioxetine Hydrobromide [Trintellix] 20 MG) PO SCH (09:00)
[2018-04-04] MEDS: SODIUM CHLORIDE 0.9% 10ML INJ IV SCH ×2 (10:17→21:13)
[2018-04-04] MEDS: PANTOPRAZOLE 40 MG INJ IV SCH ×2 (10:17→21:13)
[2018-04-04] MEDS ORDERED: PROPOFOL 200 MG/20 ML VIAL IV ONE (12:39)
[2018-04-04] MEDS: D5 0.45 NS 1,000 ML IV SCH ×3 (13:00→21:16)
--- NOTE | 2018-04-04 13:38 | P.PN ---
Subjective Date of Service: 04/04/18 Chief Complaint: Abdominal pain and intractable nausea and vomiting Patient seen and examined at bedside. at bedside. Chart reviewed and Case discussed with nursing staff. Patient reports feeling better, feeling hungry. She has not eaten anything as she is pending colonoscopy today. She is pending a gastric emptying study tomorrow. Denies any chest pain, shortness of breath, fevers, chills, headache, vision changes. Review of Systems As noted Physical Examination - Vital Signs Temperature: 97.3 F Blood Pressure: 166/85 Pulse: 69 Respirations: 18 Pulse Ox (%): 97 - Physical Exam General: Alert, In no apparent distress, Oriented x3 HEENT: Atraumatic, PERRLA, EOMI Neck: Supple, JVD not distended Respiratory: Clear to auscultation bilaterally, Normal air movement Cardiovascular: Regular rate/rhythm, Normal S1 S2 Gastrointestinal: Normal bowel sounds, Tenderness Musculoskeletal: No tenderness Integumentary: No rashes Neurological: Normal speech, Normal tone, Normal affect - Studies Microbiology Data (last 24 hrs): 04/01/18 10:04 Stool Giardia Antigen Screen - Final 04/01/18 10:04 Stool Culture & Sensitivity - Final 03/31/18 21:55 Clean Catch Urine [place] Count - Final BETWEEN 10,000 & 100,000 CFU/ML 03/31/18 21:55 Clean Catch Urine - Final Assessment And Plan - Plan This is a 58-year-old female with: - Abdominal pain: Per patient, this is a chronic issue that she has had since her cholecystectomy. Could be secondary to infectious versus IBD versus colonic etiology. CT with Colonic diverticulosis without diverticulitis. NPO, pending colonoscopy. C. diff negative. Other stool studies negative. Pending CA-19 and viral study labs, will follow up. GI consulted, recommendations appreciated. Pending Gastric studying test had a colonoscopy. - Nausea/vomiting: Patient without any episodes of vomiting, though states she feels nauseous. Will continue Zofran as needed. - History of migraines: Stable, denies any headache at this time. She is status post 1 time dose of sumatriptan on admission. Will continue to monitor. - History of hypertension: Patient with a history of hypertension, on lisinopril/hydrochlorothiazide at home. Will hold medication as her blood pressures have been in the low to normal range. Will restart medications as necessary. - Diabetes mellitus, type 2, without complication: Patient with a history of diabetes type 2 on metformin at home. Restart home metformin. Continue Accu-Cheks. - History of depression: Stable, restart home medication, vortioxetine 20 mg p.o. daily. DVT prophylaxis: Lovenox GI prophylaxis: Protonix Diet: NPO, pending colonoscopy Disposition: Pending colonoscopy today and Gastric studying test on Saturday and symptomatic improvement. Physician Review: Patient Assessed, Agree with Above Assessment and Plan Time Spent Managing PTS Care (In Minutes): 35
[2018-04-04] MEDS ORDERED: NA CHLORIDE 0.9% 1,000 ML ONE (13:46)
--- NOTE | 2018-04-04 14:46 | ENDO RPT ---
[address], [address] COLONOSCOPY PROCEDURE REPORT EXAM DATE: 04/04/2018 PATIENT NAME: Cristina Cantrell MR #: [id number] BIRTHDATE: 1960 ATTENDING: Hussein Reese Dr STATUS: outpatient BUSINESS SUPPORT: Jaqueline Park and Anahi Yang RN INDICATIONS: The patient is a 58 yr old Female here for a colonoscopy due to change in bowel habits, unexplained chronic diarrhea, RLQ/LLQ/general abdominal pain, and personal history of colon polyps PROCEDURE PERFORMED: Colonoscopy with biopsy MEDICATIONS: Per Anesthesia. ESTIMATED BLOOD LOSS: None CONSENT: The patient understands the risks and benefits of the procedure and understands that these risks include, but are not limited to: sedation, allergic reaction, infection, perforation and/or bleeding. Alternative means of evaluation and treatment include, among others: physical exam, x-rays, and/or surgical intervention. The patient elects to proceed with this endoscopic procedure. DESCRIPTION OF PROCEDURE: During intra-op preparation period all mechanical medical equipment was checked for proper function. Hand hygiene and appropriate measures for infection prevention was taken. Procedure, possible complications, alternatives including, but not limited to possibility of bleeding, perforation, tear, infection, sepsis, need for surgery, need for blood transfusion, were explained to the patient. After the risks, benefits and alternatives of the procedure were thoroughly explained, Informed consent was verified, confirmed and timeout was successfully executed by the treatment team. The patient was placed in the left lateral position. A digital rectal exam was performed and revealed external hemorrhoids. After appropriate level of anesthesia, the scope was passed. The EC-[id number] ([id number]) endoscope was introduced through the anus and advanced to the terminal ileum which was intubated for a short distance. The quality of the prep was fair. The instrument was then slowly withdrawn as the colon was fully examined. Scope withdrawal time was 8 minutes. COLON FINDINGS: Mild diverticulosis was noted throughout the entire examined colon. No bleeding was noted from the diverticulosis. Large internal and external hemorrhoids were found. Retroflexed views revealed small hemorrhoids. Random biopsies of the terminal ileum / right colon / left colon / rectum obtained with history of chronic unexplained diarrhea. The scope was then completely withdrawn from the patient and the procedure terminated. ADVERSE EVENTS: There were no complications. IMPRESSIONS: 1. Diverticula sparsely scattered throughout the entire examined colon 3. Random biopsies of the terminal ileum / right colon / left colon / rectum obtained with history of chronic unexplained diarrhea 4. Intubation to terminal ileum RECOMMENDATIONS: await biopsy results RECALL: Return in 3 year(s) for Colonoscopy. Hussein Reese Dr eSigned: Hussein Reese Dr 04/04/2018 2:45 PM cc: CPT CODES: ICD9 CODES: 455.5 External hemorrhoids with other complication PATIENT NAME: Cristina Cantrell MR#: [id number]
--- NOTE | 2018-04-04 14:53 | ENDO RPT ---
[address], [address] COLONOSCOPY PROCEDURE REPORT EXAM DATE: 04/04/2018 PATIENT NAME: Cristina Cantrell MR #: [id number] BIRTHDATE: 1960 ATTENDING: Hussein Reese Dr STATUS: outpatient GEAR ROLLER: Jaqueline Park and Anahi Yang RN INDICATIONS: The patient is a 58 yr old Female here for a colonoscopy due to change in bowel habits, unexplained chronic diarrhea, RLQ/LLQ/general abdominal pain, and personal history of colon polyps PROCEDURE PERFORMED: Colonoscopy with biopsy MEDICATIONS: Per Anesthesia. ESTIMATED BLOOD LOSS: None CONSENT: The patient understands the risks and benefits of the procedure and understands that these risks include, but are not limited to: sedation, allergic reaction, infection, perforation and/or bleeding. Alternative means of evaluation and treatment include, among others: physical exam, x-rays, and/or surgical intervention. The patient elects to proceed with this endoscopic procedure. DESCRIPTION OF PROCEDURE: During intra-op preparation period all mechanical medical equipment was checked for proper function. Hand hygiene and appropriate measures for infection prevention was taken. Procedure, possible complications, alternatives including, but not limited to possibility of bleeding, perforation, tear, infection, sepsis, need for surgery, need for blood transfusion, were explained to the patient. After the risks, benefits and alternatives of the procedure were thoroughly explained, Informed consent was verified, confirmed and timeout was successfully executed by the treatment team. The patient was placed in the left lateral position. A digital rectal exam was performed and revealed external hemorrhoids. After appropriate level of anesthesia, the scope was passed. The EC-[id number] ([id number]) endoscope was introduced through the anus and advanced to the terminal ileum which was intubated for a short distance. The quality of the prep was fair. The instrument was then slowly withdrawn as the colon was fully examined. Scope withdrawal time was 8 minutes. COLON FINDINGS: Mild diverticulosis was noted throughout the entire examined colon. No bleeding was noted from the diverticulosis. Large internal and external hemorrhoids were found. Retroflexed views revealed small hemorrhoids. Random biopsies of the terminal ileum / right colon / left colon / rectum obtained with history of chronic unexplained diarrhea. The scope was then completely withdrawn from the patient and the procedure terminated. ADVERSE EVENTS: There were no complications. IMPRESSIONS: 1. Diverticula sparsely scattered throughout the entire examined colon 3. Random biopsies of the terminal ileum / right colon / left colon / rectum obtained with history of chronic unexplained diarrhea 4. Intubation to terminal ileum RECOMMENDATIONS: await biopsy results RECALL: Return in 3 year(s) for Colonoscopy. Hussein Reese Dr eSigned: Hussein Reese Dr 04/04/2018 2:53 PM Revised: 04/04/2018 2:53 PM cc: CPT CODES: ICD9 CODES: 455.5 External hemorrhoids with other complication PATIENT NAME: Cristina CantrellKate MR#: [id number]
[2018-04-04] MEDS ORDERED: SUMATRIPTAN SUCC 6MG/0.5ML VIAL SQ ONE (15:53)
[2018-04-04 16:46] LABS: HIV 1/2 Antibody Diff Not indicated.; HIV AG/AB 4TH GEN Non-reactive (Non-reactive)
[2018-04-04] MEDS ORDERED: KETOROLAC 30 MG/ML INJ IV ONE (18:37)
[2018-04-04 19:05] LABS: HBsAG Nonreactive (Nonreactive); Hepatitis A IgM Antibody Nonreactive
--- NOTE | 2018-04-04 19:56 | RAD REPORT ---
EXAM DESCRIPTION: RAD - Small Bowel Series - 04/04/2018 5:51 pm CLINICAL HISTORY: Abdominal pain, irritable bowel disease COMPARISON: CT study March 31 FINDINGS: Industrial Radiographer film shows a nonspecific bowel gas pattern. No obstruction or free air. No suspiciou s calcifications. Gastric size and mucosal fold pattern are normal. No delay in transit of contrast into the small robert l. Small bowel is normal in diameter with no mucosal fold thickening. No intrinsic or extrinsic mass identifiable. Terminal ileum has normal appearance. Transit time to the colon is normal at 1 hour. IMPRESSION: Normal small bowel series.
[2018-04-04] MEDS: ALPRAZOLAM 0.25 MG TABLET PO PRN (21:21)
[2018-04-04 23:57] VITALS: O2SAT 97
[2018-04-05] MEDS: D5 0.45 NS 1,000 ML IV SCH ×2 (03:21→09:00)
[2018-04-05] MEDS ORDERED: KETOROLAC 30 MG/ML INJ IV ONE (03:44)
[2018-04-05] MEDS: HOME MED 1 EA UNK (Vortioxetine Hydrobromide [Trintellix] 20 MG) PO SCH (09:00)
[2018-04-05] MEDS: METFORMIN ER 500 MG TAB PO SCH (10:12)
[2018-04-05] MEDS: CHOLESTYRAMINE/ASP 4 GM/PKT PO SCH ×2 (10:12→17:59)
[2018-04-05] MEDS: ENOXAPARIN 40 MG/0.4 ML SQ SCH (10:12)
[2018-04-05] MEDS: CETIRIZINE HCL 5 MG TABLET PO SCH (10:13)
[2018-04-05] MEDS: PANTOPRAZOLE 40 MG INJ IV SCH ×2 (10:13→21:38)
[2018-04-05] MEDS: SODIUM CHLORIDE 0.9% 10ML INJ IV SCH ×2 (10:14→21:38)
--- NOTE | 2018-04-05 14:02 | P.PN ---
Subjective Date of Service: 04/05/18 Chief Complaint: Abdominal pain and intractable nausea and vomiting Patient seen and examined at bedside. at bedside. Chart reviewed and Case discussed with nursing staff. Patient reports feeling better, feeling hungry. Has not properly had a trial of diet as she has been waiting for her test so she has not had diarrhea since she has not eaten. She is pending a gastric emptying study tomorrow. Denies any chest pain, shortness of breath, fevers, chills, headache, vision changes. Review of Systems As noted above Physical Examination - Vital Signs Temperature: 98.8 F Blood Pressure: 148/79 Pulse: 65 Respirations: 16 Pulse Ox (%): 96 - Physical Exam General: Alert, In no apparent distress HEENT: Atraumatic, PERRLA, EOMI Neck: Supple, JVD not distended Respiratory: Clear to auscultation bilaterally, Normal air movement Cardiovascular: Regular rate/rhythm, Normal S1 S2 Gastrointestinal: Normal bowel sounds, Tenderness (mild) Musculoskeletal: No tenderness Integumentary: No rashes Neurological: Normal speech, Normal tone, Normal affect Lymphatics: No axilla or inguinal lymphadenopathy Assessment And Plan - Plan This is a 58-year-old female with: - Abdominal pain/diarrhea: Per patient, this is a chronic issue that she has had since her cholecystectomy. Could be secondary to infectious versus IBD versus colonic etiology. CT with Colonic diverticulosis without diverticulitis. Trial of clear liquid diet. Pending gastric emptying study tomorrow. Normal Small bowel series C. diff negative. Other stool studies negative. Pending CA-19 and viral study labs negative GI consulted, recommendations appreciated. Pending Gastric studying test. Continue loperamide, reglam and cholestyramine - Nausea/vomiting: Patient without any episodes of vomiting, though states she feels nauseous. Will continue Zofran as needed. - History of migraines: Stable, denies any headache at this time. She did receive IV toradol yesterday. Will continue to monitor. - History of hypertension: Patient with a history of hypertension, on lisinopril/hydrochlorothiazide at home. Will hold medication as her blood pressures have been in the low to normal range. Will restart medications as necessary. - Diabetes mellitus, type 2, without complication: Patient with a history of diabetes type 2 on metformin at home. Restart home metformin. Continue Accu-Cheks. - History of depression: Stable, restart home medication, vortioxetine 20 mg p.o. daily. DVT prophylaxis: Lovenox GI prophylaxis: Protonix Diet: NPO, pending Gastric study test Disposition: Pending Gastric studying test on Saturday and symptomatic improvement. Will have gastric emptying test tomorrow and if she is able to tolerate soft diet by tomorrow, may be able to discharge home with outpatient follow up with GI. Physician Review: Patient Assessed, Agree with Above Assessment and Plan
--- NOTE | 2018-04-05 15:18 | P.PN ---
Subjective Date of Service: 04/05/18 Chief Complaint: Abdominal pain and intractable nausea and vomiting Subjective: Improving (No N/V, abdominal pain today. Wants to eat real food. Did not get gastric emptying study today, will tomorrow.) Review of Systems Unremarkable Physical Examination - Vital Signs Temperature: 98.8 F Blood Pressure: 148/79 Pulse: 65 Respirations: 16 Pulse Ox (%): 96 - Physical Exam General: Alert, In no apparent distress, Oriented x3, Cooperative HEENT: Atraumatic, Normocephalic, PERRLA, EOMI Neck: Supple Respiratory: Normal air movement Cardiovascular: Normal pulses Gastrointestinal: Soft and benign, No tenderness, No rebound, No guarding Neurological: Normal speech, Normal strength at 5/5 x4 extr Assessment And Plan - Current Problems (Diagnosis) (1) Headache, migraine, intractable Onset Date: 04/01/18 Current Visit: Yes Status: Acute Comment: Improved. (2) Nausea and vomiting Onset Date: 04/01/18 Current Visit: Yes Status: Acute Comment: Improved. (3) Right upper quadrant abdominal pain Onset Date: 04/01/18 Current Visit: Yes Status: Acute Comment: Improved. - Plan REC: 1) continue scheduled Zofran 2) await gastric emptying study 3) attempt heart healthy diet today 4) discharge in 1-2 days Physician Review: Patient Assessed, Agree with Above Assessment and Plan
[2018-04-05 17:41] LABS: Phosphorus 3.5 mg/dL (2.5-4.9)
[2018-04-05] MEDS: ALPRAZOLAM 0.25 MG TABLET PO PRN (21:42)
[2018-04-06] MEDS: CHOLESTYRAMINE/ASP 4 GM/PKT PO SCH ×2 (08:00→10:57)
[2018-04-06] MEDS: METFORMIN ER 500 MG TAB PO SCH ×2 (09:00→10:58)
[2018-04-06] MEDS: CETIRIZINE HCL 5 MG TABLET PO SCH ×3 (09:00→10:57)
[2018-04-06] MEDS: HOME MED 1 EA UNK (Vortioxetine Hydrobromide [Trintellix] 20 MG) PO SCH (09:00)
[2018-04-06] MEDS: ENOXAPARIN 40 MG/0.4 ML SQ SCH (09:10)
[2018-04-06] MEDS: PANTOPRAZOLE 40 MG INJ IV SCH (09:11)
[2018-04-06] MEDS: SODIUM CHLORIDE 0.9% 10ML INJ IV SCH (09:17)
[2018-04-06 11:09] VITALS: BP 143/69; TEMP 98
--- NOTE | 2018-04-06 11:14 | RAD REPORT ---
EXAM DESCRIPTION: NM - Gastric Emptying Study - 04/06/2018 10:43 am COMPARISON: None. TECHNIQUE: The patient was administered approximately 1 mCi Tc 99m sulfur colloid in solid egg meal. Imaging of the left upper quadrant was performed with time/activity curve generated. FINDINGS: Cine-loop images show normal progression of the radiopharmaceutical from the stomach into the small bowel. Time to one-half activity is 68 minutes, normal. Calculated 2 hour retention is 24%. No other significant findings. IMPRESSION: Normal gastric emptying study.
--- NOTE | 2018-04-06 12:32 | P.PN ---
Subjective Date of Service: 04/06/18 Chief Complaint: Abdominal pain and intractable nausea and vomiting Subjective: Improving (Feels better and jovial. Still has some RUQ tenderness. Gastric emptying study today was negative. Tolerating po diet without N/V.) Review of Systems 10-point ROS is otherwise unremarkable Gastrointestinal: Abdominal Pain (mild RUQ) Physical Examination - Vital Signs Temperature: 98.0 F Blood Pressure: 143/69 Pulse: 67 Respirations: 16 Pulse Ox (%): 97 - Physical Exam General: Alert, In no apparent distress, Oriented x3, Cooperative HEENT: Atraumatic, Normocephalic, PERRLA, EOMI Neck: Supple Respiratory: Normal air movement Cardiovascular: Normal pulses Gastrointestinal: No rebound, No guarding, Tenderness (RUQ mild) Neurological: Normal speech, Normal strength at 5/5 x4 extr Assessment And Plan - Current Problems (Diagnosis) (1) Headache, migraine, intractable Onset Date: 04/01/18 Current Visit: Yes Status: Acute Comment: Improved. (2) Nausea and vomiting Onset Date: 04/01/18 Current Visit: Yes Status: Acute Comment: Improved. (3) Right upper quadrant abdominal pain Onset Date: 04/01/18 Current Visit: Yes Status: Acute Comment: Improved. - Plan REC: 1) continue scheduled Zofran 2) heart healthy diet today 3) GI clinic f/u in 1-2 weeks Physician Review: Patient Assessed, Agree with Above Assessment and Plan
--- NOTE | 2018-04-06 16:01 | P.DS ---
Admission Date: 04/02/18 Discharge Date: 04/06/18 Disposition: ROUTINE DISCHARGE Discharge Condition: GOOD Reason for Admission: Abdominal pain and intractable nausea and vomiting Consultations: GI, Dr. reese Brief History of Present Illness: Patient is a 58-year-old female who is been having some abdominal discomfort along with intractable nausea and vomiting for the last 4-5 days. She saw her GI doctor in the did a MRCP which was negative. She is scheduled for follow-up this morning. On her follow-up appointment she was having nausea and vomiting and was told to go to the ER. In the emergency room her workup did not reveal any significant abnormalities. She did have an elevated lipase level. She had a history of cholecystectomy a few months ago. Since then she had been doing fine up until this episode of pain. Currently she is doing better with no new complaints. Will admit her to the hospital for observation and recheck her lipase level in the morning. If this is doing better and her pain is improved, we will advance her diet and if she tolerates possible discharge. Hospital Course: This is a 58-year-old female with: - Abdominal pain/diarrhea: Patient was admitted to the floor, initially kept NPO, IV fluids were given. GI was consulted. CT scan was with colonic diverticulosis without diverticulitis. Small bowel series was done, which was negative. Gastric emptying study was done, which was normal. She also underwent EGD and colonoscopy during this hospitalization. She will follow up with results regarding biopsy with Dr. stewart in his office. C. diff and other stool studies were negative. She was started on loperamide,reglan and cholestyramine. She was started on a clear liquid diet and advance as tolerated. At the time of discharge, she was tolerating a GI soft diet without any concerns. She was discharged home on loperamide,reglan and cholestyramine - Nausea/vomiting: She was given Zofran as needed throughout her hospitalization. - History of migraines: She received 1 dose of sumatriptan and 1 dose of IV Toradol. Otherwise has remained stable from the point of view - History of hypertension: Blood pressure medications were initially held as her blood pressures were lower and on admission. As the blood pressure is increased throughout the stay , home medications were restarted. At the time of discharge, no changes made to patient's home blood pressure medications. - Diabetes mellitus, type 2, without complication: Patient with a history of diabetes type 2 on metformin at home. Restarted home metformin. No changes made to medication on discharge - History of depression: Stable, restart home medication, vortioxetine 20 mg p.o. daily. No changes made to medication at discharge She was instructed to follow up with GI in 1-2 weeks for biopsy results as well as further evaluation/treatment. Vital Signs/Physical Exam: Temp Pulse Resp BP Pulse Ox 98.0 F 67 16 143/69 H 97 04/06/18 12:32 04/06/18 12:32 04/06/18 12:32 04/06/18 12:32 04/06/18 12:32 General: Alert, In no apparent distress, Oriented x3 HEENT: Atraumatic, PERRLA, EOMI Neck: Supple, JVD not distended Respiratory: Clear to auscultation bilaterally, Normal air movement Cardiovascular: Regular rate/rhythm, Normal S1 S2 Gastrointestinal: Normal bowel sounds, No tenderness Musculoskeletal: No tenderness Integumentary: No rashes Neurological: Normal speech, Normal tone, Normal affect Lymphatics: No axilla or inguinal lymphadenopathy Laboratory Data at Discharge: WBC 4.7 K/uL (4.3-10.9) D 04/01/18 04:52 Hgb 11.1 g/dL (12.0-15.0) L 04/01/18 04:52 Hct 33.3 % (36.0-45.0) L D 04/01/18 04:52 Plt Count 183 K/uL (152-406) D 04/01/18 04:52 Sodium 144 mmol/L (136-145) 04/03/18 05:09 Potassium 4.1 mmol/L (3.5-5.1) 04/03/18 05:09 BUN 7 mg/dL (7-18) 04/03/18 05:09 Creatinine 0.80 mg/dL (0.55-1.3) 04/03/18 05:09 Glucose 98 mg/dL (74-106) 04/03/18 05:09 Phosphorus 3.5 mg/dL (2.5-4.9) 04/05/18 16:58 Magnesium 2.0 mg/dL (1.8-2.4) 04/05/18 16:58 Total Bilirubin 0.4 mg/dL (0.2-1.0) 04/01/18 04:52 AST 126 U/L (15-37) H 04/01/18 04:52 ALT 167 U/L (12-78) H 04/01/18 04:52 Alkaline Phosphatase 56 U/L (45-117) 04/01/18 04:52 Triglycerides 108 mg/dL (<150) 04/01/18 04:52 Cholesterol 179 mg/dL (<200) 04/01/18 04:52 HDL Cholesterol 30 mg/dL (40-60) L 04/01/18 04:52 Cholesterol/HDL Ratio 5.97 04/01/18 04:52 Lipase 305 U/L (73-393) 04/06/18 12:38 Home Medications: Cetirizine HCl [Zyrtec] 10 mg PO DAILY 03/31/18 Docusate Sodium [Stool Softener] 100 mg PO DAILY 03/31/18 Esomeprazole Mag Trihydrate [Nexium] 1 tab PO DAILY 03/31/18 Lisinopril/Hydrochlorothiazide [Lisinopril-Hctz 20-12.5 mg Tab] 1 tab PO DAILY 03/31/18 Metformin ER [Glucophage ER*] 500 mg PO DAILY 03/31/18 Turmeric/Turmeric Root Extract [Turmeric 500 mg Capsule] 720 mg PO DAILY Vortioxetine Hydrobromide [Trintellix] 20 mg PO DAILY 03/31/18 Cholestyramine/Asp [Questran Light*] 4 gm PO BIDWM #10 packet 04/06/18 Loperamide [Imodium*] 2 mg PO Q6HP PRN #20 cap 04/06/18 New Medications: Loperamide [Imodium*] 2 mg PO Q6HP PRN #20 cap PRN Reason: Diarrhea Cholestyramine/Asp [Questran Light*] 4 gm PO BIDWM #10 packet Patient Discharge Instructions: Please follow up with Dr. Reese in 1-2 weeks. Please follow up with your Primary Care Physician in 1 week. Diet: [place] (Soft, as tolerated) Activity: Ad marce Followup: Hussein Reese MD [ASSOCIATE-ACTIVE - CAN ADMIT] - 1-2 Weeks (Call for appointment) Physician Review: Patient Assessed, Agree with Above Assessment and Plan Time spent managing pt's care (in minutes): 55
== END 2018-04-06 14:23 | disposition home or self-care (01) | DRG 392 ==
LOC: ER 17:01 → ERHOLD 19:30 → 2ND 20:50 → OBSVTOIN 04-02 18:30
PROVIDERS: ADMIT Hospitalist; ATTEND Family Medicine
PROC: 0DB78ZX Excision of Stomach, Pylorus, Via Natural or Artificial Opening Endoscopic, Diagnostic (ICD-10-PCS; 2018-04-02)
PROC: 0DB68ZX Excision of Stomach, Via Natural or Artificial Opening Endoscopic, Diagnostic (ICD-10-PCS; 2018-04-02)
PROC: 0DB68ZX Excision of Stomach, Via Natural or Artificial Opening Endoscopic, Diagnostic (ICD-10-PCS; principal; 2018-04-02 10:30)
PROC: 0DBB8ZX Excision of Ileum, Via Natural or Artificial Opening Endoscopic, Diagnostic (ICD-10-PCS; 2018-04-04)
PROC: 0DBP8ZX Excision of Rectum, Via Natural or Artificial Opening Endoscopic, Diagnostic (ICD-10-PCS; 2018-04-04)
PROC: 0DBF8ZX Excision of Right Large Intestine, Via Natural or Artificial Opening Endoscopic, Diagnostic (ICD-10-PCS; 2018-04-04)
PROC: 0DBG8ZX Excision of Left Large Intestine, Via Natural or Artificial Opening Endoscopic, Diagnostic (ICD-10-PCS; 2018-04-04)
DX: K57.90 Diverticulosis of intestine, part unspecified, without perforation or abscess without bleeding (principal); R11.2 Nausea with vomiting, unspecified; G43.909 Migraine, unspecified, not intractable, without status migrainosus; I10 Essential (primary) hypertension; E11.9 Type 2 diabetes mellitus without complications; Z79.84 Long term (current) use of oral hypoglycemic drugs; F32.9 Major depressive disorder, single episode, unspecified; K21.9 Gastro-esophageal reflux disease without esophagitis; K20.9 Esophagitis, unspecified; K44.9 Diaphragmatic hernia without obstruction or gangrene; K29.70 Gastritis, unspecified, without bleeding; K31.7 Polyp of stomach and duodenum; K64.4 Residual hemorrhoidal skin tags; K64.8 Other hemorrhoids
CPT/HCPCS: 36415; 74176; 74250; 76377; 78264; 80048; 80053; 80061; 80074; 80076; 81003; 81015; 82962; 83036; 83690; 83735; 84100; 84132; 85025; 86301; 86644; 86664; 86665; 87045; 87046; 87086; 87088; 87329; 87389; 87493; 88305; 88312; 96361; 96374; 96375; 99285; A9541; C9113; G0378; J1650; J2001; J2405; J2550; J2704; J3010; J3030; J7030

== ENCOUNTER 2020-01-21 13:23 | Emergency (ER) | payer OTHER ==
--- OUTSIDE RECORDS SUMMARY | 2020-01-21 13:25 | XMS REPORT | Continuity of Care Document ---
:[address] [facility] t Address [address] [place] [address] Dr. Eubanks. [address] [place] [address] Care Team Providers Name Role Phone Taiwo Dawn MD Attending Clinician Problems This patient has no known problems. Allergies, Adverse Reactions, Alerts This patient has no known allergies or adverse reactions. Medications This patient has no known medications. Procedures This patient has no known procedures. Encounters Start End Encounter Admission Attending Care Care Encounter Source Date/Time Date/Time Type Type Clinicians Facility Department ID 2019-10-30 2019-10-30 Office MARIA FERNANDA Dawn [id number] 11:03:09 13:38:11 Visit Sidney Estrada [id number] Lv [id number] Jaycee [id number] nal 0[address] Building Results This patient has no known results.
--- OUTSIDE RECORDS SUMMARY | 2020-01-21 13:25 | XMS REPORT | Summary of Care ---
:1960 Author Organization [facility] - Health Address [address] [place] [id number] Care Team Providers Name Role Phone Pcp, Patient Does Not Have A Primary Care Provider [phone] Encounter Details Date Type Department Care Team Description 10/30/2019 Orders Only [facility] Doctor Unassigned, No [address] [facility] [place] [address] [place] [id number] Allergies No Known Allergiesdocumented as of this encounter (statuses as of 10/30/2019) Medications Medication Sig Dispensed Refills Start Date End Date Status vunbzre-inqzoddtl-siwm Take 1 capsule by 50 capsule 1 03/04/20 18 Active aminophn 65-100-325 mg mouth every 4 capsule (four) hours as needed for Migraine. doxycycline 40 mg 0 01/22/2018 A ctive capsule esomeprazole 40 mg 0 12/20/2017 Active capsule lisinopril-hydrochloro 0 12/11/2017 Active thiazide 20-25 mg per tablet metFORMIN 500 mg 0 01/18/2018 Ac tive tablet TRINTELLIX 20 mg Tab 0 12/27/2017 Active cetirizine (ZYRTEC) 10 Take 10 mg by 0 Active mg tablet mouth daily. ykegmbwluw-exsztdw-ktw Take 1 capsule by 50 capsule 1 11/12/19 19 Active feine (FIORINAL) mouth every 4 50-325-40 mg per (four) hours as capsule needed for Pain. documented as of this encounter (statuses as of 10/30/2019) Active Problems Not on filedocumented as of this encounter (statuses as of 10/30/2019) Social History Tobacco Use Types Packs/Day Years Used Date Never Assessed Sex Assigned at Date Recorded Not on file Job Start Date Occupation Industry Not on file Not on file Not on file Travel History Travel Start Travel End No recent travel history available. documented as of this encounter Last Filed Vital Signs Not on filedocumented in this encounter Plan of Treatment Health Maintenance Due Date Last Done Comments HEPATITIS C (HCV) SCREEN 1960 DTaP,Tdap,and Td Vaccines (1 - 01/08/1972 Tdap) Depression Screening 1973 PAP SMEAR 1982 Breast Cancer Screening 2001 (MAMMOGRAM) COLONOSCOPY 2011 Zoster Recombinant Vaccine 2011 (SHINGRIX) (1 of 2) INFLUENZA VACCINE (Season Ended) 2020 PNEUMOCOCCAL 0-64 YEARS COMBINED Aged Out No longer eligible based on SERIES patient's age to complete this topic documented as of this encounter Procedures Procedure Name Priority Date/Time Associated Diagnosis Comme nts ASSIGNMENT OF BENEFITS Routine 10/30/2019 11:02 AM CDT documented in this encounter Results Not on filedocumented in this encounter Insurance Payer Benefit Plan / Group Subscriber ID Effective Dates Phone Address Type AETNA AETNA TRS CARE [id number] 2014-Present PPO AETNA AETNA CHOICE POS II [id number] 2018-Present POS documented as of this encounter
--- OUTSIDE RECORDS SUMMARY | 2020-01-21 13:26 | XMS REPORT | Summary of Care ---
:1960 Author Organization [facility] Address [address] [place] [id number] Care Team Providers Name Role Phone Pcp, Patient Does Not Have A Primary Care Provider [phone] Reason for Visit Reason Comments Follow-up Encounter Details Date Type Department Care Team Description 10/30/2019 Office Visit [facility] L[facility]pez Sidney Intractable chronic migraine without aura and without status migrainosus (Primary Dx); Neurology-Natalie Maravilla MD Type 2 diabetes mellitus without complic ation, without long-term current use of insulin [address] [place] [address] [place] [phone] Allergies No Known Allergiesdocumented as of this encounter (statuses as of 11/05/2019) Medications Medication Sig Dispensed Refills Start Date End Date Status doxycycline 40 mg 0 01/22/2018 A ctive capsule esomeprazole 40 mg 0 12/20/2017 Active capsule lisinopril-hydrochl 0 12/11/2017 Active orothiazide 20-25 mg per tablet metFORMIN 500 mg 0 01/18/2018 Ac tive tablet TRINTELLIX 20 mg 0 12/27/2017 Ac tive Tab cetirizine (ZYRTEC) Take 10 mg 0 Active 10 mg tablet by mouth daily. butalbital-aspirin- Take 1 50 capsule 1 11/11/2018 Active caffeine (FIORINAL) capsule by 50-325-40 mg per mouth every capsule 4 (four) hours as needed for Pain. ZOLMitriptan 5 mg Take 1 9 tablet 2 10/30/2019 A ctive disintegrating tablet by tabletIndications: mouth as Intractable chronic needed for migraine without Migraine. aura and without status migrainosus erenumab-aooe inject 140 1 Syringe 6 10/30/2019 Acti ve (AIMOVIG mg under the AUTOINJECTOR) 140 skin once mg/mL every month. AtInIndications: Intractable chronic migraine without aura and without status migrainosus tslvsfj-nbbbynoqp-e Take 1 50 capsule 1 03/04/2018 10/30/19 2 Discontinued cetaminophn capsule by 0 (Ineffe ctive 65-100-325 mg mouth every Medi cation) capsule 4 (four) hours as needed for Migraine. documented as of this encounter (statuses as of 11/05/2019) Active Problems Not on filedocumented as of this encounter (statuses as of 11/05/2019) Social History Tobacco Use Types Packs/Day Years Used Date Never Assessed Sex Assigned at Date Recorded Not on file Job Start Date Occupation Industry Not on file Not on file Not on file Travel History Travel Start Travel End No recent travel history available. COVID-19 Exposure Response Date Recorded In the last month, have you been in contact with No / Unsure 10/30/2019 11:25 AM CDT someone who was confirmed or suspected to have Coronavirus / COVID-19? documented as of this encounter Last Filed Vital Signs Vital Sign Reading Time Taken Comments Blood Pressure 138/82 10/30/2019 11:24 AM CDT Pulse 82 10/30/2019 11:24 AM CDT Temperature 37 C (98.6 F) 10/30/2019 11:24 AM CDT Respiratory Rate 18 10/30/2019 11:24 AM CDT Oxygen Saturation - - Inhaled Oxygen Concentration - - Weight 122.6 kg (270 lb 4 oz) 10/30/2019 11:24 AM CDT Height 180.3 cm (5' 11") 10/30/2019 11:24 AM CDT Body Mass Index 37.69 10/30/2019 11:24 AM CDT documented in this encounter Progress Notes Sidney Dawn MD - 10/30/2019 11:00 AM CDT HISTORY OF PRESENT ILLNESS: Cristina Cantrell is a 59 year old female. Chief complaint: Continuing chronic headaches. History: The patient has had continuing headache problems, which are very frequent and sometimes they can last for days. She has been discovered to have diabetes, and so she is now on an oral medication for this problem. She in the past had tried Topamax, which did not really help her very much, Imitrex pills didn't work, she did get some benefit from the Imitrex injection but then she also had the sensation for a while after the injection of "needles sticking in the top of my head". She did say that her diabetic control otherwise has been good. PMH: has no past medical history on file. Current Outpatient Medications: erenumab-aooe (AIMOVIG AUTOINJECTOR) 140 mg/mL AtIn, inject 140 mg under the skin once every month., Disp: 1 Syringe, Rfl: 6 ZOLMitriptan 5 mg disintegrating tablet, Take 1 tablet by mouth as needed for Migraine., Disp: 9 tablet, Rfl: 2 gvkucxlpww-ptkblgc-ghxtrgml (FIORINAL) 50-325-40 mg per capsule, Take 1 capsule by mouth every 4 (four) hours as needed for Pain., Disp: 50 capsule, Rfl: 1 cetirizine (ZYRTEC) 10 mg tablet, Take 10 mg by mouth daily., Disp: , Rfl: doxycycline 40 mg capsule, , Disp: , Rfl: esomeprazole 40 mg capsule, , Disp: , Rfl: lisinopril-hydrochlorothiazide 20-25 mg per tablet, , Disp: , Rfl: metFORMIN 500 mg tablet, , Disp: , Rfl: TRINTELLIX 20 mg Tab, , Disp: , Rfl: No family history on file. Social History Socioeconomic History Marital status: Spouse name: Not on file Number of children: Not on file Years of education: Not on file Highest education level: Not on file Occupational History Not on file Social Needs Financial resource strain: Not on file Food insecurity: Worry: Not on file Inability: Not on file Transportation needs: Medical: Not on file Non-medical: Not on file Tobacco Use Smoking status: Not on file Substance and Sexual Activity Alcohol use: Not on file Drug use: Not on file Sexual activity: Not on file Lifestyle Physical activity: Days per week: Not on file Minutes per session: Not on file Stress: Not on file Relationships Social connections: Talks on phone: Not on file Gets together: Not on file Attends christian service: Not on file Active member of club or organization: Not on file Attends meetings of clubs or organizations: Not on file Relationship status: Not on file Intimate partner violence: Fear of current or ex partner: Not on file Emotionally abused: Not on file Physically abused: Not on file Forced sexual activity: Not on file Other Topics Concern Not on file Social History Narrative Not on file Vital signs: BP 138/82 | Pulse 82 | Temp 37 C (98.6 F) (Oral) | Resp 18 | Ht 5' 11" (1.803 m) | Wt 270 lb 4 oz (122.6 kg) | BMI 37.69 kg/m General findings: EOMI/VFFTC/PERRL, no facial asymmetry, no new focal weakness of arms, UE tone unchanged, no new focal weakness of legs, LE tone unchanged, no tremors, no ataxia, normal gait, normal station, CV regular rhythm/rate without murmur, no lung wheeze or rhonchi, absent carotid bruit R/L. The patient is alert and oriented times 3, cooperative during the examination. Neck is supple. ASSESSMENT AND RECOMMENDATIONS: ICD-10-CM ICD-9-CM 1. Intractable chronic migraine without aura and without status migrainosus G43.719 346.71 2. Type 2 diabetes mellitus without complication, without long-term current use of insulin E11.9 250.00 Impression: I had suggested to her that she try Aimovig and so the mechanism of action had been discussed with her. I would not offer her Inderal because of the history of the diabetes, Depakote would not be good for her because of its propensity to cause weight gain which is something she is trying to avoid especially as she tries to control her diabetes. I did tell her that she might get some benefit from breakthrough headaches with a different tryptan aside from the sumatriptan, and she could consider the use of a different agent like Zomig. Prescriptions were sent out after discussing wrists and benefits of both of these medications. The office visit did last 25 minutes as descriptions occurred about mechanisms of action of migraine and how we do try to control the headaches. Creation of the note was aided by utilizing a cut/paste operation of text from a Microsoft Word template created with [employer]. The text was dictated into the template via Dragon Naturally Speaking. documented in this encounter Plan of Treatment Health Maintenance Due Date Last Done Comments HEPATITIS C (HCV) SCREEN 1960 HgA1C 1962 PNEUMOCOCCAL 0-64 YEARS COMBINED SERIES (1 of 1 - 1967 PPSV23) CREATININE (SERUM) 1971 EYE EXAM 1971 LDL-C 1971 URINE MICROALBUMIN 1971 DTaP,Tdap,and Td Vaccines (1 - Tdap) 01/08/1972 Depression Screening 1973 FOOT EXAM 1979 PAP SMEAR 1982 Breast Cancer Screening (MAMMOGRAM) 2001 COLONOSCOPY 2011 Zoster Recombinant Vaccine (SHINGRIX) (1 of 2) 2011 INFLUENZA VACCINE (Season Ended) 2020 documented as of this encounter Results Not on filedocumented in this encounter Visit Diagnoses Diagnosis Intractable chronic migraine without aur a and without status migrainosus - Primary Chronic migraine without aura, with intr actable migraine, so stated, without mention of status migrainosus Type 2 diabetes mellitus without complic ation, without long-term current use of insulin documented in this encounter (Home) [facility] [phone] [facility] ([facility]) [id number] documented as of this encounter
--- OUTSIDE RECORDS SUMMARY | 2020-01-21 13:26 | XMS REPORT | Summary of Care ---
:1960 Author Organization [facility] Address [address] [place] [address] Care Team Providers Name Role Phone Pcp, Patient Does Not Have A Primary Care Provider [phone] Reason for Visit Reason Comments Follow-up Encounter Details Date Type Department Care Team Description 10/30/2019 Office Visit [facility] López Sidney Intractable chronic migraine without aura and without status migrainosus (Primary Dx); Neurology-Natalie Maravilla MD Type 2 diabetes mellitus without complic ation, without long-term current use of insulin [address] [place] [address] [place] [phone] Allergies No Known Allergiesdocumented [...] migraine without aura and without status migrainosus umoouby-fwkkmmkym-s Take 1 50 capsule 1 03/04/2018 10/30/19 [...] for Migraine., Disp: 9 tablet, Rfl: 2 anvkcuveeb-mrngegn-vpmgzpnk (FIORINAL) 50-325-40 mg per capsule, Take 1 [...] file Gets together: Not on file Attends yarsani service: Not on file Active member of [...] from a Microsoft Word template created with [employer]. The text was dictated into the template [...] of insulin documented in this encounter (Home) [facility] [phone] [facility] (Work) [id number] documented as of this encounter
[2020-01-21] MEDS ORDERED: METOCLOPRAMIDE 10 MG/2mL INJ ONE (14:51)
[2020-01-21] MEDS ORDERED: MEPERIDINE HCL 50 MG/ML ONE (14:51)
[2020-01-21] MEDS ORDERED: dexAMETHasone 10 MG/ML VIAL ONE (14:51)
[2020-01-21] MEDS ORDERED: NA CHLORIDE 0.9% 200 ML IV ONE (14:52)
[2020-01-21] MEDS ORDERED: NA CHLORIDE 0.9% 1,000 ML ONE (14:52)
--- NOTE | 2020-01-21 14:55 | RAD REPORT ---
EXAM DESCRIPTION: CT - Head Brain Wo Cont - 01/21/2020 2:31 pm CLINICAL HISTORY: HEADACHE Headache, drowsiness COMPARISON: No comparisons TECHNIQUE: All CT scans are performed using dose optimization technique as appropriate and may inclu de automated exposure control or mA/KV adjustment according to patient size. FINDINGS: No intracranial hemorrhage, hydrocephalus or extra-axial fluid collection.No areas of brai n edema or evidence of midline shift. The paranasal sinuses and mastoids are clear. The calvarium is intact. IMPRESSION: No acute intracranial abnormality.
--- NOTE | 2020-01-21 16:11 | EDPHYS ---
Physician Documentation [facility] Name: Cristina Cantrell Age: 60 yrs Sex: Female : 1960 Arrival Date: 01/21/2020 Time: 13:25 Bed 24 Private MD: ED Physician Josh Alonso HPI: 01/20 15:07 This 60 yrs old Female presents to ER via Ambulatory with complaints of rn Headache, Vomiting. 15:07 The patient complains of pain to the top of head and forehead. The patient describes rn the headache as aching. Onset: The symptoms/episode began/occurred yesterday. Associated signs and symptoms: Pertinent positives: nausea, vomiting. Severity of symptoms: At its worst the pain was moderate, in the emergency department the pain is unchanged. The symptoms are alleviated by nothing. the symptoms are aggravated by lights, movement, noise. The patient has experienced similar episodes in the past. Reports hx of migraines, + headache since yesterday, a little different from previous in location and having vomiting, also her migraine medication didn't work completely. No fever/head injury/focal neuro complaint. . Historical: - Allergies: 13:36 No Known Allergies; sv - PMHx: 13:36 Diabetes - NIDDM; Hypertension; Migraines; sv - PSHx: 13:36 Hysterectomy; foot - right; sv - Immunization history:: Adult Immunizations up to date. - Social history:: Smoking status: Patient denies any tobacco usage or history of. - Family history:: not pertinent. - Hospitalizations: : No recent hospitalization is reported. ROS: 15:07 Constitutional: Negative for fever, chills, and weight loss, Eyes: Negative for injury, rn pain, redness, and discharge, Neck: Negative for injury, pain, and swelling, Cardiovascular: Negative for chest pain, palpitations, and edema, Respiratory: Negative for shortness of breath, cough, wheezing, and pleuritic chest pain, Abdomen/GI: Negative for abdominal pain,diarrhea, and constipation, MS/Extremity: Negative for injury and deformity, Skin: Negative for injury, rash, and discoloration, Neuro: Negative for weakness, numbness, tingling, and seizure. Exam: 15:07 Constitutional: This is a well developed, well nourished patient who is awake, alert, rn and in no acute distress. Head/Face: Normocephalic, atraumatic. Neck: Supple, full range of motion without nuchal rigidity, or vertebral point tenderness. No Meningismus. Cardiovascular: Regular rate and rhythm. No pulse deficits. Respiratory: No increased work of breathing, no retractions or nasal flaring. Abdomen/GI: soft, non-tender MS/ Extremity: Pulses equal, no cyanosis. Neurovascular intact. Full, normal range of motion. Equal circumference. Neuro: Awake and alert, GCS 15, oriented to person, place, time, and situation. Cranial nerves II-XII grossly intact. Motor strength 5/5 in all extremities. Sensory grossly intact. Cerebellar exam normal. Vital Signs: 13:36 BP 157 / 87; Pulse 76; Resp 22; Temp 98.7; Pulse Ox 99% ; Weight 98.43 kg; Height 5 ft. sv 11 in. (180.34 cm); Pain 10/10; 13:36 Body Mass Index 30.27 (98.43 kg, 180.34 cm) sv Jennifer Coma Score: 16:10 Eye Response: spontaneous(4). Verbal Response: oriented(5). Motor Response: obeys rn commands(6). Total: 15. MDM: 14:09 Patient medically screened. rn 16:10 Differential diagnosis: migraine, neoplasm, tension headache, vasomotor headache. Data rn reviewed: vital signs, nurses notes, radiologic studies, CT scan, and as a result, I will discharge patient. Counseling: I had a detailed discussion with the patient and/or guardian regarding: the historical points, exam findings, and any diagnostic results supporting the discharge/admit diagnosis, radiology results, the need for outpatient follow up, to return to the emergency department if symptoms worsen or persist or if there are any questions or concerns that arise at home. Response to treatment: the patient's symptoms have mildly improved after treatment, and as a result, I will discharge patient. Special discussion: I discussed with the patient/guardian in detail that at this point there is no indication for admission to the hospital. It is understood, however, that if the symptoms persist or worsen the patient needs to return immediately for re-evaluation. 01/20 14:22 Order name: CT Head Brain wo Cont; Complete Time: 15:07 rn 01/20 14:22 Order name: IV Start; Complete Time: 14:39 rn Administered Medications: 14:30 Drug: Demerol 50 mg Route: IVP; Site: right antecubital; ls4 16:02 Follow up: Response: No adverse reaction; Pain is decreased ls4 14:30 Drug: NS 0.9% 1000 ml Route: IV; Rate: 1000 ml; Site: right antecubital; ls4 14:30 Drug: Decadron - Dexamethasone 10 mg Route: IVP; Site: right antecubital; ls4 14:40 Drug: Reglan 10 mg Route: IVP; Site: right antecubital; ls4 16:16 Drug: Phenergan 25 mg Route: IVP; Site: right antecubital; ls4 Disposition: 01/21/20 16:10 Discharged to Home. Impression: Migraine. - Condition is Stable. - Discharge Instructions: Migraine Headache. - Medication Reconciliation Form, Thank You Letter, Antibiotic Education, Prescription Opioid Use form. - Follow up: Private Physician; When: As needed; Reason: Recheck today's complaints, Re-evaluation by your physician. - Problem is an acute exacerbation. - Symptoms have improved. Signatures: Dispatcher [employer] EDUT Kasia Lopez RN RN sv Josh Alonso MD MD rn Calderon, Audri, RN RN aa5 Rosa Horn RN RN ls4 Corrections: (The following items were deleted from the chart) 17:23 16:10 01/21/2020 16:10 Discharged to Home. Impression: Migraine. Condition is Stable. aa5 Forms are Medication Reconciliation Form, Thank You Letter, Antibiotic Education, Prescription Opioid Use. Follow up: Private Physician; When: As needed; Reason: Recheck today's complaints, Re-evaluation by your physician. Problem is an acute exacerbation. Symptoms have improved. rn
--- NOTE | 2020-01-21 16:11 | ER ---
Nurse's Notes [facility] Name: Cristina Cantrell Age: 60 yrs Sex: Female : 1960 Arrival Date: 01/21/2020 Time: 13:25 Bed 24 Private MD: Diagnosis: Migraine Presentation: 01/20 13:35 Chief complaint: Patient states: migraine and vomiting started last night. 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 Coronavirus screen: Client denies travel out of the [place] in the last 14 days. At this time, the client does not indicate any symptoms associated with coronavirus-19. Ebola Screen: No symptoms or risks identified at this time. Risk Assessment: Do you want to hurt yourself or someone else? Patient reports no desire to harm self or others. Onset of symptoms was January 20, 2020. 13:35 Method Of Arrival: Ambulatory 13:35 Acuity: JOON 3 aa5 13:36 Initial Sepsis Screen: Does the patient meet any 2 criteria? RR > 20 per min. No. sv Patient's initial sepsis screen is negative. Does the patient have a suspected source of infection? No. Patient's initial sepsis screen is negative. Triage Assessment: 13:35 Headache History: The patient has had previous headaches and this one is similar to sv previous episodes. General: Appears in no apparent distress. uncomfortable, Behavior is cooperative, appropriate for age. Pain: Complains of pain in face Pain currently is 10 out of 10 on a pain scale. Pain began 1 day ago. Is continuous, Also complains of nausea, photophobia. Neuro: Level of Consciousness is awake, alert, obeys commands, Oriented to person, place, time, situation, Moves all extremities. Full function Gait is steady, Speech is normal. Respiratory: Respiratory effort is even, unlabored, Respiratory pattern is regular, symmetrical. GI: Reports nausea, vomiting. Historical: - Allergies: 13:36 No Known Allergies; sv - PMHx: 13:36 Diabetes - NIDDM; Hypertension; Migraines; sv - PSHx: 13:36 Hysterectomy; foot - right; sv - Immunization history:: Adult Immunizations up to date. - Social history:: Smoking status: Patient denies any tobacco usage or history of. - Family history:: not pertinent. - Hospitalizations: : No recent hospitalization is reported. Screenin:00 Abuse screen: Denies threats or abuse. Denies injuries from another. Nutritional sv screening: No deficits noted. Tuberculosis screening: No symptoms or risk factors identified. Fall Risk None identified. Assessment: 14:03 General: Appears in no apparent distress. comfortable, Behavior is calm, cooperative. ls4 Pain:. Neuro: Level of Consciousness is awake, alert, obeys commands, Oriented to person, place, time, situation, Gait is steady, Speech is normal. Vital Signs: 13:36 BP 157 / 87; Pulse 76; Resp 22; Temp 98.7; Pulse Ox 99% ; Weight 98.43 kg; Height 5 ft. sv 11 in. (180.34 cm); Pain 10/10; 13:36 Body Mass Index 30.27 (98.43 kg, 180.34 cm) sv [place] Coma Score: 16:10 Eye Response: spontaneous(4). Verbal Response: oriented(5). Motor Response: obeys rn commands(6). Total: 15. ED Course: 13:25 Patient arrived in ED. as 13:35 Arm band placed on. sv 13:36 Triage completed. sv 14:00 Patient has correct armband on for positive identification. Bed in low position. Call sv light in reach. Door closed. Head of bed elevated. 14:02 Rosa Horn, RN is Primary Nurse. ls4 14:09 Josh Alonso MD is Attending Physician. rn 14:29 CT Head Brain wo Cont In Process Unspecified. EDMS 14:30 Inserted saline lock: 20 gauge in right antecubital area, using aseptic technique. dh4 Blood collected. Administered Medications: 14:30 Drug: Demerol 50 mg Route: IVP; Site: right antecubital; ls4 16:02 Follow up: Response: No adverse reaction; Pain is decreased ls4 14:30 Drug: NS 0.9% 1000 ml Route: IV; Rate: 1000 ml; Site: right antecubital; ls4 14:30 Drug: Decadron - Dexamethasone 10 mg Route: IVP; Site: right antecubital; ls4 14:40 Drug: Reglan 10 mg Route: IVP; Site: right antecubital; ls4 16:16 Drug: Phenergan 25 mg Route: IVP; Site: right antecubital; ls4 Outcome: 16:10 Discharge ordered by . rn Signatures: Dispatcher [employer] Kasia Mckeon RN RN sv Martinez, Amelia as Nieto, Roman, MD MD rn Calderon, Audri, RN RN aa5 Rosa Horn RN RN ls4 Richie Kinsey [facility] Corrections: (The following items were deleted from the chart) 14:22 13:35 Acuity: JOON 4 sv aa5 16:04 16:01 Reglan 10 mg IVP in right antecubital ls4 ls4 17:23 17:23 Patient left the ED. aa5 aa5
[2020-01-21] MEDS ORDERED: PROMETHAZINE INJ 25 MG/ML AMP ONE (16:28)
== END 2020-01-21 17:23 | disposition home or self-care (01) ==
LOC: ER 13:23
DX: G43.909 Migraine, unspecified, not intractable, without status migrainosus (principal)
CPT/HCPCS: 70450; 96375; 96374; 99284; J2765; J2550; J1100; J2175; J7030

== ENCOUNTER 2020-08-22 16:11 | Emergency (ER) | payer OTHER ==
--- OUTSIDE RECORDS SUMMARY | 2020-08-22 16:13 | XMS REPORT | Continuity of Care Document ---
:1960 Author Organization [facility] t Address [address] [place]. [address] [place] [address] Care Team Providers Name Role Phone López MERCER, Taiwo Attending Clinician Problems This patient has no known problems. Allergies, Adverse Reactions, Alerts This patient has no known allergies or adverse reactions. Medications This patient has no known medications. Procedures This patient has no known procedures. Encounters Start End Encounter Admission Attending Care Care Encounter Source Date/Time Date/Time Type Type Clinicians Facility Department ID 2020-07-18 2020-07-18 Telephone MARIA FERNANDA Dawn [id number] 00:00:00 00:00:00 Sidney Estrada [id number] [place] [id number] [facility] [id number] nal 092 Building 2020-07-15 2020-07-15 Office MARIA FERNANDA Dawn [id number] 11:11:25 12:03:14 Visit Sidney Estrada [id number] [place] [id number] [facility] [phone] [place] 092 [facility] Results This patient has no known results.
[2020-08-22] MEDS ORDERED: TETANUS & DIPHTHERIA TOX,ADULT 0.5 ML VIAL ONE ×2 (18:02)
--- NOTE | 2020-08-22 18:35 | RAD REPORT ---
EXAM DESCRIPTION: RAD - Hand Left 3 View - 08/22/2020 6:21 pm CLINICAL HISTORY: PAIN FINDINGS: No fracture, dislocation or radiopaque foreign body.
--- NOTE | 2020-08-22 18:46 | EDPHYS ---
Physician Documentation [facility] Name: Cristina Cantrell Age: 60 yrs Sex: Female : 1960 Arrival Date: 08/22/2020 Time: 16:12 Bed 24 Private MD: ED Physician Vinnie Montero HPI: 08/22 23:28 This 60 yrs old Female presents to ER via Ambulatory with complaints of kb Laceration - finger. 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 The injury was accidental. The laceration(s) is(are) located on the dorsal aspect of distal phalanx of left index finger. Onset: The symptoms/episode began/occurred today. Associated signs and symptoms: The patient has no apparent associated signs or symptoms. The patient has not experienced similar symptoms in the past. The patient has not recently seen a physician. Historical: - Allergies: 16:39 No Known Allergies; ca1 - PMHx: 16:39 Diabetes - NIDDM; Hypertension; Migraines; ca1 - PSHx: 16:39 Hysterectomy; foot - right; ca1 - Immunization history:: Last tetanus immunization: < 5 years ago Flu vaccine is up to date. - Social history:: Smoking status: Patient denies any tobacco usage or history of. ROS: 23:26 Constitutional: Negative for fever, chills, and weight loss, Neuro: Negative for kb headache, weakness, numbness, tingling, and seizure. 23:26 Skin: Positive for laceration(s), of the dorsal aspect of distal phalanx of left index finger. Exam: 23:27 Constitutional: This is a well developed, well nourished patient who is awake, alert, kb and in no acute distress. Head/Face: Normocephalic, atraumatic. MS/ Extremity: Pulses equal, no cyanosis. Neurovascular intact. Full, normal range of motion. Neuro: Awake and alert, GCS 15, oriented to person, place, time, and situation. Moves all extremities. Normal gait. 23:27 Skin: injury, laceration(s), the wound is approximately 1 cm(s), of the dorsal aspect of distal phalanx of left index finger, that can be described as clean, no foreign body, linear, without bleeding, well approximated, no indication for repair. Vital Signs: 16:36 BP 123 / 88; Pulse 92; Resp 18 S; Temp 97.4(TE); Pulse Ox 98% on R/A; Weight 122.47 kg ca1 (R); Height 5 ft. 11 in. (180.34 cm) (R); Pain 6/10; 16:36 Body Mass Index 37.66 (122.47 kg, 180.34 cm) ca1 MDM: 17:11 Patient medically screened. kb 23:25 Data reviewed: vital signs, nurses notes. Data interpreted: Pulse oximetry: on room air kb is 98 %. Interpretation: normal. Counseling: I had a detailed discussion with the patient and/or guardian regarding: the historical points, exam findings, and any diagnostic results supporting the discharge/admit diagnosis, radiology results, the need for outpatient follow up, a family practitioner, to return to the emergency department if symptoms worsen or persist or if there are any questions or concerns that arise at home. 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 Exp: iw 10/30/2021. Lot #: [id number]. } Route: IM; Site: left deltoid; Disposition: 08/23 18:45 Co-signature as Attending Physician, Vinine Montero MD. ma2 Disposition: 08/22/20 18:46 Discharged to Home. Impression: Laceration without foreign body of left index finger with damage to nail. - Condition is Stable. - Discharge Instructions: Nonsutured Laceration Care. - Medication Reconciliation Form, Thank You Letter, Antibiotic Education, Prescription Opioid Use form. - Follow up: Emergency Department; When: As needed; Reason: Worsening of condition. Follow up: Private Physician; When: 2 - 3 days; Reason: Recheck today's complaints, Continuance of care, Re-evaluation by your physician. Signatures: Dispatcher [employer] Sanjana Parker FNP-C FNP-CkAmanda Villalpando, RN RN iw Vinnie Montero MD MD ma2 Alison Chan RN RN ca1 Corrections: (The following items were deleted from the chart) 08/22 18:54 18:46 08/22/2020 18:46 Discharged to Home. Impression: Laceration without foreign body iw of left index finger with damage to nail. Condition is Stable. Forms are Medication Reconciliation Form, Thank You Letter, Antibiotic Education, Prescription Opioid Use. Follow up: Emergency Department; When: As needed; Reason: Worsening of condition. Follow up: Private Physician; When: 2 - 3 days; Reason: Recheck today's complaints, Continuance of care, Re-evaluation by your physician. kb
--- NOTE | 2020-08-22 18:46 | ER ---
Nurse's Notes 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 Coronavirus screen: Client denies travel out of the [place] in the last 14 days. At this time, the client does not indicate any symptoms associated with coronavirus-19. Ebola Screen: Patient negative for fever greater than or equal to 101.5 degrees Fahrenheit, and additional compatible Ebola Virus Disease symptoms Patient denies exposure to infectious person. Patient denies travel to an Ebola-affected area in the 21 days before illness onset. No symptoms or risks identified at this time. Initial Sepsis Screen: Does the patient meet any 2 criteria? No. Patient's initial sepsis screen is negative. Does the patient have a suspected source of infection? No. Patient's initial sepsis screen is negative. Risk Assessment: Do you want to hurt yourself or someone else? Patient reports no desire to harm self or others. Onset of symptoms was August 22, 2020. 16:36 Method Of Arrival: Ambulatory ca1 16:36 Acuity: JOON 4 ca1 18:00 Complicating Factors: There are no complicating factors for this patient. iw Triage Assessment: 18:00 General: Appears in no apparent distress. Behavior is calm, cooperative. Injury iw Description: Laceration. Historical: - Allergies: 16:39 No Known Allergies; ca1 - PMHx: 16:39 Diabetes - NIDDM; Hypertension; Migraines; ca1 - PSHx: 16:39 Hysterectomy; foot - right; ca1 - Immunization history:: Last tetanus immunization: < 5 years ago Flu vaccine is up to date. - Social history:: Smoking status: Patient denies any tobacco usage or history of. Screenin:50 Abuse screen: Denies threats or abuse. Denies injuries from another. Nutritional iw screening: No deficits noted. Tuberculosis screening: No symptoms or risk factors identified. Fall Risk None identified. Assessment: 18:00 General: Appears in no apparent distress. Behavior is calm, cooperative. Pain: iw Complains of pain in dorsal aspect of distal phalanx of left index finger and left index fingernail. Neuro: Level of Consciousness is awake, alert, obeys commands, Oriented to person, place, time, situation. Musculoskeletal: Range of motion: intact in all extremities. Injury Description: Laceration sustained to dorsal aspect of distal phalanx of left index finger is 0.5 to 2.5 cm long. Vital Signs: 16:36 BP 123 / 88; Pulse 92; Resp 18 S; Temp 97.4(TE); Pulse Ox 98% on R/A; Weight 122.47 kg ca1 (R); Height 5 ft. 11 in. (180.34 cm) (R); Pain 6/10; 16:36 Body Mass Index 37.66 (122.47 kg, 180.34 cm) ca1 ED Course: 16:12 Patient arrived in ED. as 16:39 Triage completed. ca1 16:39 Arm band placed on right wrist. ca1 17:11 Sanjana Alicea FNP-C is [facility]. kb 17:11 Vinnie Montero MD is Attending Physician. kb 17:41 Amanda Cloe RN is Primary Nurse. iw 18:03 Wound care: to laceration located on left index fingernail was soaked in Hibiclens mh5 solution, Patient tolerated well. 18:04 Patient has correct armband on for positive identification. Bed in low position. Call mh5 light in reach. Pulse ox on. NIBP on. 18:22 Hand Left 3 View XRAY In Process Unspecified. EDMS 18:30 Assist provider with laceration repair on dorsal aspect of distal phalanx of left index iw finger that was 2.5 cm. or less using Dermabond. Set up tray. Performed by Sanjana RUSSELL Patient tolerated well. Patient did not have IV access during this emergency room visit. 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 Exp: iw 10/30/2021. Lot #: [id number]. } Route: IM; Site: left deltoid; Outcome: 18:46 Discharge ordered by . kb 18:53 Discharged to home ambulatory. iw 18:53 Condition: good 18:53 Discharge instructions given to patient, Instructed on discharge instructions, follow up and referral plans. Demonstrated understanding of instructions, follow-up care, wound care. 18:54 Patient left the ED. iw Signatures: Dispatcher [employer] Sanjana Parker, AUTOMOBILE BODY REPAIRER-C AUTOMOBILE BODY REPAIRER-Luz Maria Gomez Irene, RN RN Mary Anne Shaw [facility] Alison Chan RN RN ca1
== END 2020-08-22 18:54 | disposition home or self-care (01) ==
LOC: ER 16:11
DX: S61.311A Laceration without foreign body of left index finger with damage to nail, initial encounter (principal); W45.8XXA Other foreign body or object entering through skin, initial encounter; Y93.89 Activity, other specified; Y92.009 Unspecified place in unspecified non-institutional (private) residence as the place of occurrence of the external cause; I10 Essential (primary) hypertension; Z23 Encounter for immunization
CPT/HCPCS: 90471; 90714; 99284

== ENCOUNTER 2021-07-17 20:05 | Emergency (ER) | payer OTHER ==
--- OUTSIDE RECORDS SUMMARY | 2021-07-17 20:09 | XMS REPORT | Continuity of Care Document ---
:1960 Author Organization [facility] t Address [address] [place] [address] [address]. Mor[address] [place] [address] Care Team Providers Name Role Phone Pcp, Does Not Have A Primary Care Physician Charanjit Dawn MD Attending Clinician Doctor Unassigned, Name Attending Clinician Unavailable Nicolle MCCANN Attending Clinician Unavailable CHARANJIT DAWN Attending Clinician Unavailable CHARANJIT DAWN Attending Clinician Unavailable Payers Payer Name Policy Type Policy Number Effective Date Expiration Date S ource Problems This patient has no known problems. Allergies, Adverse Reactions, Alerts Allergy Allergy Status Severity Reaction(s) Onset Inactive Treating Comm ents Source Name Type Date Date Clinician NO KNOWN Drug Active Univers ALLERGIE Class ity of S [facility] Social History Social Habit Start Date Stop Date Quantity Comments Source Exposure to Not sure [facility] SARS-CoV-2 (event) Medica l Branch Tobacco use and 2020-07-15 2020-07-15 Never used [facility] exposure 00:00:00 00:00:00 [facility] Sex Assigned At [birth year] [facility] 00:00:00 00:00:00 [facility] Smoking Status Start Date Stop Date Source Unknown if ever smoked [facility] Never smoker [facility] Medications Ordered Filled Start Stop Current Ordering Indication Dosage Frequency Signature Comments Components Source Medication Medication Date Date Medication? Clinician (SIG) Name Name rizatriptan 2020-05 Yes 10mg Take 1 Univ ers 10 mg 1-11 tablet by ity of disintegrat 00:00: [place] tablet 00 needed for Med ical Migraine Branch (Take on the onset of migraine. Maximum daily dose is 30mg in 24 hour period.). May repeat in 2 hours if needed rizatriptan 2020-05 Yes 10mg Take 1 Univ ers 10 mg 1-11 tablet by ity of disintegrat 00:00: [place] tablet 00 needed for Med ical Migraine Branch (Take on the onset of migraine. Maximum daily dose is 30mg in 24 hour period.). May repeat in 2 hours if needed proMETHazin 2020-05 Yes 25mg Take 1 Univ ers e 25 mg 1-08 tablet by ity of tablet 00:00: mouth [place] 00 every 8 Medical (eight) Branch hours as needed (for headache). proMETHazin 2020-05 Yes 25mg Take 1 Univ ers e 25 mg 1-08 tablet by ity of tablet 00:00: mouth [place] 00 every 8 Medical (eight) Branch hours as needed (for headache). proMETHazin 2020-05 Yes 25mg Take 1 Univ ers e 25 mg 1-08 tablet by ity of tablet 00:00: mouth [place] 00 every 8 Medical (eight) Branch hours as needed (for headache). lasmiditan Yes [id number] 1{tbl} Take 1 [facility] 100 mg Tab 5-25 9105 tablet by ity of 00:00: mouth as [place] 00 needed (At Medical the onset Branch of a headache, no more than one tablet in 24 hours). isometh-dic Yes [id number] 1{capsu Take 1 Univers hloral-acet 5-25 9105 le} capsule by it y of aminophn 00:00: mouth [place] 65-100-325 00 every 4 Medica l mg capsule (four) Branch hours as needed for Migraine. lasmiditan Yes [id number] 1{tbl} Take 1 [facility] 100 mg Tab 5-25 9105 tablet by ity of 00:00: mouth as [place] 00 needed (At Medical the onset Branch of a headache, no more than one tablet in 24 hours). isometh-dic Yes [id number] 1{capsu Take 1 Univers hloral-acet 5-25 9105 le} capsule by it y of aminophn 00:00: mouth [place] 65-100-325 00 every 4 Medica l mg capsule (four) Branch hours as needed for Migraine. lasmiditan Yes [id number] 1{tbl} Take 1 [facility] 100 mg Tab 5-25 9105 tablet by ity of 00:00: mouth as [place] 00 needed (At Medical the onset Branch of a headache, no more than one tablet in 24 hours). isometh-dic Yes [id number] 1{capsu Take 1 Univers hloral-acet 5-25 9105 le} capsule by it y of aminophn 00:00: mouth [place] 65-100-325 00 every 4 Medica l mg capsule (four) Branch hours as needed for Migraine. lasmiditan Yes [id number] 1{tbl} Take 1 [facility] 100 mg Tab 5-25 9105 tablet by ity of 00:00: mouth as [place] 00 needed (At Medical the onset Branch of a headache, no more than one tablet in 24 hours). isometh-dic Yes [id number] 1{capsu Take 1 Univers hloral-acet 5-25 9105 le} capsule by it y of aminophn 00:00: mouth [place] 65-100-325 00 every 4 Medica l mg capsule (four) Branch hours as needed for Migraine. cetirizine 2020- No 10mg Take 10 mg Univers (ZYRTEC) 10 -15 07-19 by mouth ity of mg tablet 17:36: 00:00 daily. [place] 43 :00 Medical Branch cetirizine 2020- No 10mg Take 10 mg Univers (ZYRTEC) 10 -15 07- by mouth ity of mg tablet 17:36: 00:00 daily. [place] 43 :00 Medical Branch ZOLMITRIPTA 2019-05 Yes [id number] DISSOLVE 1 Univers N 5 mg 2-29 9105 TABLET BY ity of disintegrat 00:00: M[place]TH [place] tablet 00 NEEDED Medical MIGRAINE Branch ZOLMITRIPTA 2019-05 Yes [id number] DISSOLVE 1 Univers N 5 mg 2-29 9105 TABLET BY ity of disintegrat 00:00: [place] tablet 00 NEEDED Medical MIGRAINE Branch ZOLMITRIPTA 2019-05 Yes [id number] DISSOLVE 1 Univers N 5 mg 2-29 9105 TABLET BY ity of disintegrat 00:00: [place] tablet 00 NEEDED Medical MIGRAINE Branch ZOLMITRIPTA 2019-05 Yes [id number] DISSOLVE 1 Univers N 5 mg 2-29 9105 TABLET BY ity of disintegrat 00:00: [place] tablet 00 NEEDED Medical MIGRAINE Branch ZOLMITRIPTA 2019-05 Yes [id number] DISSOLVE 1 Univers N 5 mg 2-29 9105 TABLET BY ity of disintegrat 00:00: [place] tablet 00 NEEDED Medical MIGRAINE Branch ZOLMITRIPTA 2019-05 Yes [id number] DISSOLVE 1 Univers N 5 mg 2-29 9105 TABLET BY ity of disintegrat 00:00: [place] tablet 00 NEEDED Medical MIGRAINE Branch ZOLMITRIPTA 2019-05- No [id number] DISSOLVE 1 Univers N 5 mg 2-22 10- 9105 TABLET BY ity of disintegrat 00:00: 00:00 [place] tablet 00 :00 NEEDED Medical MIGRAINE Branch AIMOVIG 2019-05 Yes [id number] INJECT 140 Univers AUTOINJECTO 2-28 9105 MG ity of R 140 mg/mL 00:00: SUBCUTANEO [place] AtIn 00 US ONCE Medical EVERY Branch MONTH AIMOVIG 2019-05 Yes [id number] INJECT 140 Univers AUTOINJECTO 2-28 9105 MG ity of R 140 mg/mL 00:00: SUBCUTANEO [place] AtIn 00 US ONCE Medical EVERY Branch MONTH AIMOVIG 2019-05- No [id number] INJECT 140 Univers AUTOINJECTO 2-28 - 9105 MG ity of R 140 mg/mL 00:00: 00:00 SUBCUTANEO [place] AtIn 00 :00 US ONCE Medical EVERY Branch MONTH AIMOVIG 2019-05- No [id number] INJECT 140 Univers AUTOINJECTO 2-28 - 9105 MG ity of R 140 mg/mL 00:00: 00:00 SUBCUTANEO [place] AtIn 00 :00 US ONCE Medical EVERY Branch MONTH SUMAtriptan Yes Inject 0.5 Univers 6 mg/0.5 mL 9-11 ml under ity of injection 00:00: [place] 00 at the Medical onset of Branch headache. If no relief you can inject another 0.5 ml in 4hours with a max of 2 injections per day. SUMAtriptan 2020-0 Yes Inject 0.5 Univers 6 mg/0.5 mL 9-11 ml under [place]y of injection 00:00: [place] 00 at the Medical onset of Branch headache. If no relief you can inject another 0.5 ml in 4hours with a max of 2 injections per day. SUMAtriptan 2020-0 Yes Inject 0.5 Univers 6 mg/0.5 mL 9-11 ml under [place]y of injection 00:00: [place] 00 at the Medical onset of Branch headache. If no relief you can inject another 0.5 ml in 4hours with a max of 2 injections per day. SUMAtriptan 2020-0 Yes Inject 0.5 Univers 6 mg/0.5 mL 9-11 ml under [place]y of injection 00:00: [place] 00 at the Medical onset of Branch headache. If no relief you can inject another 0.5 ml in 4hours with a max of 2 injections per day. SUMAtriptan 2020-0 Yes Inject 0.5 Univers 6 mg/0.5 mL 9-11 ml under ity of injection 00:00: [place] 00 at the Medical onset of Branch headache. If no relief you can inject another 0.5 ml in 4hours with a max of 2 injections per day. SUMAtriptan 2020-0 Yes Inject 0.5 Univers 6 mg/0.5 mL 9-11 ml under ity of injection 00:00: [place] 00 at the Medical onset of Branch headache. If no relief you can inject another 0.5 ml in 4hours with a max of 2 injections per day. SUMAtriptan 2020-0 Yes Inject 0.5 Univers 6 mg/0.5 mL 9-11 ml under ity of injection 00:00: [place] 00 at the Medical onset of Branch headache. If no relief you can inject another 0.5 ml in 4hours with a max of 2 injections per day. SUMAtriptan 2020-0 Yes Inject 0.5 Univers 6 mg/0.5 mL 9-11 ml under ity of injection 00:00: [place] at the Medical onset of Branch headache. If no relief you can inject another 0.5 ml in 4hours with a max of 2 injections per day. SUMAtriptan 2020-0 2020- No Inject 0.5 Univers 6 mg/0.5 mL 9- 05-25 ml under ity of injection 00:00: 00:00 the skin [place] 00 :00 at the Medical onset of Branch headache. If no relief you can inject another 0.5 ml in 4hours with a max of 2 injections per day. proMETHazin 2020-0 Yes 25mg Take 1 Univ ers e 25 mg 9-08 tablet by ity of tablet 00:00: mouth [place] 00 every 8 Medical (eight) Branch hours as needed (for headache). proMETHazin 2020-0 Yes 25mg Take 1 Univ ers e 25 mg 9-08 tablet by ity of tablet 00:00: mouth [place] 00 every 8 Medical (eight) Branch hours as needed (for headache). proMETHazin 2020-0 Yes 25mg Take 1 Univ ers e 25 mg 9-08 tablet by ity of tablet 00:00: mouth [place] 00 every 8 Medical (eight) Branch hours as needed (for headache). proMETHazin 2020-0 Yes 25mg Take 1 Univ ers e 25 mg 9-08 tablet by ity of tablet 00:00: mouth [place] 00 every 8 Medical (eight) Branch hours as needed (for headache). proMETHazin 2020-0 Yes 25mg Take 1 Univ ers e 25 mg 9-08 tablet by ity of tablet 00:00: mouth [place] 00 every 8 Medical (eight) Branch hours as needed (for headache). proMETHazin 2020-0 Yes 25mg Take 1 Univ ers e 25 mg 9-08 tablet by ity of tablet 00:00: mouth [place] 00 every 8 Medical (eight) Branch hours as needed (for headache). proMETHazin 2020-0 Yes 25mg Take 1 Univ ers e 25 mg 9-08 tablet by ity of tablet 00:00: mouth [place] 00 every 8 Medical (eight) Branch hours as needed (for headache). proMETHazin 2020-0 Yes 25mg Take 1 Univ ers e 25 mg 9-08 tablet by ity of tablet 00:00: mouth [place] 00 every 8 Medical (eight) Branch hours as needed (for headache). proMETHazin 2020-0 Yes 25mg Take 1 Univ ers e 25 mg 9-08 tablet by ity of tablet 00:00: mouth [place] 00 every 8 Medical (eight) Branch hours as needed (for headache). proMETHazin 2020-0 2020- No 25mg Take 1 Uni vers e 25 mg 02-01 tablet by ity of tablet 00:00: 00:00 mouth [place] 00 :00 every 8 Medical (eight) Branch hours as needed (for headache). ZOLMitripta 2019-0 Yes [id number] 5mg Take 1 Univers n 5 mg 6- 9105 tablet by ity of disintegrat 00:00: mouth [place] tablet 00 needed for Med ical Migraine. Branch erenumab-ao Yes [id number] 140mg inject 140 Univers oe (AIMOVIG 10-29 9105 mg under ity of AUTOINJECTO 00:00: [place] R) 140 00 once every Medical mg/mL AtIn month. Branch ZOLMitripta Yes [id number] 5mg Take 1 Univers n 5 mg - 9105 tablet by ity of disintegrat 00:00: mouth [place] tablet 00 needed for Med ical Migraine. Branch erenumab-ao Yes [id number] 140mg inject 140 Univers oe (AIMOVIG 10-29 9105 mg under ity of AUTOINJECTO 00:00: [place] R) 140 00 once every Medical mg/mL AtIn month. Branch ZOLMitripta 0 Yes [id number] 5mg Take 1 Univers n 5 mg - 9105 tablet by ity of disintegrat 00:00: mouth [place] tablet 00 needed for Med ical Migraine. Branch erenumab-ao Yes [id number] 140mg inject 140 Univers oe (AIMOVIG 10-29 9105 mg under ity of AUTOINJECTO 00:00: [place] R) 140 00 once every Medical mg/mL AtIn month. Branch ZOLMitripta Yes [id number] 5mg Take 1 Univers n 5 mg - 9105 tablet by ity of disintegrat 00:00: mouth [place] tablet 00 needed for Med ical Migraine. Branch ZOLMitripta 2019- No [id number] 5mg Take 1 Univers n 5 mg -05-24 9105 tablet by ity of disintegrat 00:00: 00:00 mouth [place] tablet 00 :00 needed for Med ical Migraine. Branch erenumab-ao 2019-0 2020- No [id number] 140mg inject 140 Univers oe (AIMOVIG 10-29 12 9105 mg under ity of AUTOINJECTO 00:00: 00:00 [place] R) 140 00 :00 once every Medical mg/mL AtIn month. Branch butalbital- 2018-0 Yes 1{capsu Take 1 U nivers aspirin-caf 6-18 le} capsule by it y of feine 00:00: mouth [place] (FIORINAL) 00 every 4 Medica l 50-325-40 (four) Branch mg per hours as capsule needed for Pain. butalbital- Yes 1{capsu Take 1 U nivers aspirin-caf 6-18 le} capsule by it y of feine 00:00: mouth [place] (FIORINAL) 00 every 4 Medica l 50-325-40 (four) Branch mg per hours as capsule needed for Pain. butalbital- Yes 1{capsu Take 1 U nivers aspirin-caf 6-18 le} capsule by it y of feine 00:00: mouth [place] (FIORINAL) 00 every 4 Medica l 50-325-40 (four) Branch mg per hours as capsule needed for Pain. butalbital- Yes 1{capsu Take 1 U nivers aspirin-caf 6-18 le} capsule by it y of feine 00:00: mouth [place] (FIORINAL) 00 every 4 Medica l 50-325-40 (four) Branch mg per hours as capsule needed for Pain. butalbital- Yes 1{capsu Take 1 U nivers aspirin-caf 6-18 le} capsule by it y of feine 00:00: mouth [place] (FIORINAL) 00 every 4 Medica l 50-325-40 (four) Branch mg per hours as capsule needed for Pain. butalbital- Yes 1{capsu Take 1 U nivers aspirin-caf 6-18 le} capsule by it y of feine 00:00: mouth [place] (FIORINAL) 00 every 4 Medica l 50-325-40 (four) Branch mg per hours as capsule needed for Pain. butalbital- Yes 1{capsu Take 1 U nivers aspirin-caf 6-18 le} capsule by it y of feine 00:00: mouth [place] (FIORINAL) 00 every 4 Medica l 50-325-40 (four) Branch mg per hours as capsule needed for Pain. butalbital- 2018-0 Yes 1{capsu Take 1 U nivers aspirin-caf 6-18 le} capsule by it y of feine 00:00: mouth [place] (FIORINAL) 00 every 4 Medica l 50-325-40 (four) Branch mg per hours as capsule needed for Pain. butalbital- 2018-0 Yes 1{capsu Take 1 U nivers aspirin-caf 6-18 le} capsule by it y of feine 00:00: mouth [place] (FIORINAL) 00 every 4 Medica l 50-325-40 (four) Branch mg per hours as capsule needed for Pain. butalbital- 0 Yes 1{capsu Take 1 U nivers aspirin-caf 6-18 le} capsule by it y of feine 00:00: mouth [place] (FIORINAL) 00 every 4 Medica l 50-325-40 (four) Branch mg per hours as capsule needed for Pain. butalbital- 0 Yes 1{capsu Take 1 U nivers aspirin-caf 6-18 le} capsule by it y of feine 00:00: mouth [place] (FIORINAL) 00 every 4 Medica l 50-325-40 (four) Branch mg per hours as capsule needed for Pain. butalbital- 2018-0 Yes 1{capsu Take 1 U nivers aspirin-caf 6-18 le} capsule by it y of feine 00:00: mouth [place] (FIORINAL) 00 every 4 Medica l 50-325-40 (four) Branch mg per hours as capsule needed for Pain. butalbital- 2018-0 Yes 1{capsu Take 1 U nivers aspirin-caf 6-18 le} capsule by it y of feine 00:00: mouth [place] (FIORINAL) 00 every 4 Medica l 50-325-40 (four) Branch mg per hours as capsule needed for Pain. butalbital- 2018-0 Yes 1{capsu Take 1 U nivers aspirin-caf 6-18 le} capsule by it y of feine 00:00: mouth [place] (FIORINAL) 00 every 4 Medica l 50-325-40 (four) Branch mg per hours as capsule needed for Pain. butalbital- 2019-0 Yes 1{capsu Take 1 U nivers aspirin-caf 6-18 le} capsule by it y of feine 00:00: mouth [place] (FIORINAL) 00 every 4 Medica l 50-325-40 (four) Branch mg per hours as capsule needed for Pain. cetirizine 2017-05 Yes 10mg Take 10 mg U nivers (ZYRTEC) 10 0-09 by mouth ity of mg tablet 21:59: daily. [address] cetirizine 2017-05 Yes 10mg Take 10 mg U nivers (ZYRTEC) 10 0-09 by mouth ity of mg tablet 21:59: daily. [address] cetirizine 2017-05 Yes 10mg Take 10 mg U nivers (ZYRTEC) 10 0-09 by mouth ity of mg tablet 21:59: daily. [address] cetirizine 2017-05 Yes 10mg Take 10 mg U nivers (ZYRTEC) 10 0-09 by mouth ity of mg tablet 21:59: daily. [address] cetirizine 2017-05 Yes 10mg Take 10 mg U nivers (ZYRTEC) 10 0-09 by mouth ity of mg tablet 21:59: daily. [address] cetirizine 2017-05 Yes 10mg Take 10 mg U nivers (ZYRTEC) 10 0-09 by mouth ity of mg tablet 21:59: daily. [address] cetirizine 2017-05 Yes 10mg Take 10 mg U nivers (ZYRTEC) 10 0-09 by mouth ity of mg tablet 21:59: daily. [address] isometh-dic 2017-05 Yes 1{capsu Take 1 U nivers hloral-acet 0-09 le} capsule by it y of aminophn 00:00: mouth [place] 65-100-325 00 every 4 Medica l mg capsule (four) Branch hours as needed for Migraine. isometh-dic 2017-05 2020- No 1{capsu Take 1 Univers hloral-acet 0-09 06-05 le} capsule by i ty of aminophn 00:00: 00:00 mouth [place] 65-100-325 00 :00 every 4 Medica l mg capsule (four) Branch hours as needed for Migraine. isometh-dic 2017-05 2020- No 1{capsu Take 1 Univers hloral-acet 005 le} capsule by rafita munoz of aminophn 00:00: 00:00 mouth [place] 65-100-325 00 :00 every 4 Medica l mg capsule (four) Branch hours as needed for Migraine. doxycycline 2018-0 Yes Univer s 40 mg 8-29 ity of capsule 00:00: [place] [address] Medical Branch doxycycline 2018-0 Yes Univer s 40 mg 8-29 ity of capsule 00:00: [place] [address] Medical Branch doxycycline 2018-0 Yes Univer s 40 mg 8-29 ity of capsule 00:00: [place] [address] Medical Branch doxycycline 2018-0 Yes Univer s 40 mg 8-29 ity of capsule 00:00: [place] [address] Medical Branch doxycycline 2018-0 Yes Univer s 40 mg 8-29 ity of capsule 00:00: [place] [address] Medical Branch doxycycline 2018-0 Yes Univer s 40 mg 8-29 ity of capsule 00:00: [place] [address] Medical Branch doxycycline 2018-0 Yes Univer s 40 mg 8-29 ity of capsule 00:00: [place] [address] Medical Branch doxycycline 2018-0 2021- No Unive rs 40 mg 8-29 02-19 ity of capsule 00:00: 00:00 [place] 00 :00 Medical Branch doxycycline 2018-0 2021- No Unive rs 40 mg 8-29 02-19 ity of capsule 00:00: 00:00 [place] 00 :00 Medical Branch metFORMIN 2018-0 Yes Univers 500 mg 8-25 ity of tablet 00:00: [place] [address] Medical Branch metFORMIN 2018-0 Yes Univers 500 mg 8-25 ity of tablet 00:00: [place] [address] Medical Branch metFORMIN 2018-0 Yes Univers 500 mg 8-25 ity of tablet 00:00: [place] [address] Medical Branch metFORMIN 2018-0 Yes Univers 500 mg 8-25 ity of tablet 00:00: [place] [address] Medical Branch metFORMIN 2018-0 Yes Univers 500 mg 8-25 ity of tablet 00:00: [place] [address] Medical Branch metFORMIN 2018-0 Yes Univers 500 mg 8-25 ity of tablet 00:00: [place] [address] Medical Branch metFORMIN 2018-0 Yes Univers 500 mg 8-25 ity of tablet 00:00: [place] [address] Medical Branch metFORMIN 2018-0 1- No Univers 500 mg 01-18 ity of tablet 00:00: 00:00 [place] 00 :00 Medical Branch metFORMIN 2018-0 1- No Univers 500 mg 01-18 ity of tablet 00:00: 00:00 [place] 00 :00 Medical Branch TRINTELLIX 2018-0 Yes Univers 20 mg Tab 8-03 ity of 00:00: [place] 00 Medical Branch TRINTELLIX 2018-0 Yes Univers 20 mg Tab 8-03 ity of 00:00: [place] 00 Medical Branch TRINTELLIX 2018-0 Yes Univers 20 mg Tab 8-03 ity of 00:00: [place] 00 Medical Branch TRINTELLIX 2018-0 Yes Univers 20 mg Tab 8-03 ity of 00:00: [place] 00 Medical Branch TRINTELLIX 2018-0 Yes Univers 20 mg Tab 8-03 ity of 00:00: [place] 00 Medical Branch TRINTELLIX 2018-0 Yes Univers 20 mg Tab 8-03 ity of 00:00: [place] 00 Medical Branch TRINTELLIX 2018-0 Yes Univers 20 mg Tab 8-03 ity of 00:00: [place] 00 Medical Branch TRINTELLIX 2018-0 1- No Univer s 20 mg Tab 8-07-15 ity of 00:00: 00:00 [place] 00 :00 Medical Branch TRINTELLIX 2018-0 2021- No Univer s 20 mg Tab 8-03 -19 ity of 00:00: 00:00 [place] 00 :00 Medical Branch esomeprazol 2018-0 Yes Univer s e 40 mg 7-27 ity of capsule 00:00: [place] 00 Medical Branch esomeprazol 2018-0 Yes Univer s e 40 mg 7-27 ity of capsule 00:00: [place] 00 Medical Branch esomeprazol 2018-0 Yes Univer s e 40 mg 7-27 ity of capsule 00:00: [place] 00 Medical Branch esomeprazol 2018-0 Yes Univer s e 40 mg 7-27 ity of capsule 00:00: [place] 00 Medical Branch esomeprazol 2018-0 Yes Univer s e 40 mg 7-27 ity of capsule 00:00: [place] 00 Medical Branch esomeprazol 2018-0 Yes Univer s e 40 mg 7-27 ity of capsule 00:00: [place] Medical Branch esomeprazol 2018-0 Yes Univer s e 40 mg 7-27 ity of capsule 00:00: [place] Medical Branch esomeprazol 2018-0 Yes Univer s e 40 mg 7-27 ity of capsule 00:00: [place] Medical Branch esomeprazol 2018-0 Yes Univer s e 40 mg 7-27 ity of capsule 00:00: [place] Medical Branch esomeprazol 2018-0 Yes Univer s e 40 mg 7-27 ity of capsule 00:00: [place] Medical Branch esomeprazol 2018-0 Yes Univer s e 40 mg 7-27 ity of capsule 00:00: [place] Medical Branch esomeprazol 2018-0 Yes Univer s e 40 mg 7-27 ity of capsule 00:00: [place] Medical Branch esomeprazol 2018-0 Yes Univer s e 40 mg 7-27 ity of capsule 00:00: [place] Medical Branch esomeprazol 2018-0 Yes Univer s e 40 mg 7-27 ity of capsule 00:00: [place] Medical Branch esomeprazol 2018-0 Yes Univer s e 40 mg 7-27 ity of capsule 00:00: [place] Medical Branch lisinopril- 2018-0 Yes Univer s hydrochloro 7-18 ity of thiazide 00:00: [place] 20-25 mg 00 Medical per tablet Branch lisinopril- 20180 Yes Univer s hydrochloro 7-18 ity of thiazide 00:00: [place] 20-25 mg 00 Medical per tablet Branch lisinopril- 2018-0 Yes Univer s hydrochloro 7-18 ity of thiazide 00:00: [place] 20-25 mg 00 Medical per tablet Branch lisinopril- 2018-0 Yes Univer s hydrochloro 7-18 ity of thiazide 00:00: [place] 20-25 mg 00 Medical per tablet Branch lisinopril- 2018-0 Yes Univer s hydrochloro 7-18 ity of thiazide 00:00: [place] 20-25 mg 00 Medical per tablet Branch lisinopril- 20180 Yes Univer s hydrochloro 7-18 ity of thiazide 00:00: [place] 20-25 mg 00 Medical per tablet Branch lisinopril- Yes Univer s hydrochloro 7-18 ity of thiazide 00:00: [place] 20-25 mg 00 Medical per tablet Branch lisinopril- 0 Yes Univer s hydrochloro 7-18 ity of thiazide 00:00: [place] 20-25 mg 00 Medical per tablet Branch lisinopril- 0 Yes Univer s hydrochloro 7-18 ity of thiazide 00:00: [place] 20-25 mg 00 Medical per tablet Branch lisinopril- Yes Univer s hydrochloro 7-18 ity of thiazide 00:00: [place] 20-25 mg 00 Medical per tablet Branch lisinopril- Yes Univer s hydrochloro 7-18 ity of thiazide 00:00: [place] 20-25 mg 00 Medical per tablet Branch lisinopril- Yes Univer s hydrochloro 7-18 ity of thiazide 00:00: [place] 20-25 mg 00 Medical per tablet Branch lisinopril- Yes Univer s hydrochloro 7-18 ity of thiazide 00:00: [place] 20-25 mg 00 Medical per tablet Branch lisinopril- Yes Univer s hydrochloro 7-18 ity of thiazide 00:00: [place] 20-25 mg 00 Medical per tablet Branch lisinopril- 0 Yes Univer s hydrochloro 7-18 ity of thiazide 00:00: [place] 20-25 mg 00 Medical per tablet Branch Immunizations Ordered Filled Immunization Date Status Comments [facility] Immunization Name Name SARS-COV-2 COVID-19 2020-08-09 Completed Unive rsity of PFIZER VACCINE 00:00:00 [facility] SARS-COV-2 COVID-19 2020-08-09 Completed Unive rsity of PFIZER VACCINE 00:00:00 [facility] SARS-COV-2 COVID-19 2020-08-09 Completed Unive rsity of PFIZER VACCINE 00:00:00 [facility] SARS-COV-2 COVID-19 2020-08-09 Completed Unive rsity of PFIZER VACCINE 00:00:00 [facility] SARS-COV-2 COVID-19 2020-08-09 Completed Unive rsity of PFIZER VACCINE 00:00:00 [facility] SARS-COV-2 COVID-19 2020-07-19 Completed Unive rsity of PFIZER VACCINE 00:00:00 [facility] SARS-COV-2 COVID-19 2020-07-19 Completed Unive rsity of PFIZER VACCINE 00:00:00 [facility] SARS-COV-2 COVID-19 2020-07-19 Completed Unive rsity of PFIZER VACCINE 00:00:00 [facility] SARS-COV-2 COVID-19 2020-07-19 Completed Unive rsity of PFIZER VACCINE 00:00:00 [facility] SARS-COV-2 COVID-19 2020-07-19 Completed Unive rsity of PFIZER VACCINE 00:00:00 [facility] Zoster Vaccine 2020-05-12 Completed University of Recombinant 00:00:00 [facility] Zoster Vaccine 2020-05-12 Completed University of Recombinant 00:00:00 [facility] Zoster Vaccine 2020-05-12 Completed University of Recombinant 00:00:00 [facility] Zoster Vaccine 2020-05-12 Completed University of Recombinant 00:00:00 [facility] Zoster Vaccine 2020-05-12 Completed University of Recombinant 00:00:00 [facility] Zoster Vaccine 2020-05-12 Completed University of Recombinant 00:00:00 [facility] Zoster Vaccine 2020-05-12 Completed University of Recombinant 00:00:00 [facility] Zoster Vaccine 2020-05-12 Completed University of Recombinant 00:00:00 [facility] Zoster Vaccine 2020-01-27 Completed University of Recombinant 00:00:00 [facility] Zoster Vaccine 2020-01-27 Completed University of Recombinant 00:00:00 [facility] Zoster Vaccine 2020-01-27 Completed University of Recombinant 00:00:00 [facility] Zoster Vaccine 2020-01-27 Completed University of Recombinant 00:00:00 [facility] Zoster Vaccine 2020-01-27 Completed University of Recombinant 00:00:00 [facility] Zoster Vaccine 2020-01-27 Completed University of Recombinant 00:00:00 [facility] Zoster Vaccine 2020-01-27 Completed University of Recombinant 00:00:00 [facility] Zoster Vaccine 2020-01-27 Completed University of Recombinant 00:00:00 [facility] Influenza Virus 2019-03-09 Completed Universit y of Vaccine Quad .5 mL 00:00:00 [facility] 6+ MO Call Influenza Virus 2019-03-09 Completed Universit y of Vaccine Quad .5 mL 00:00:00 [facility] 6+ MO Branch Influenza Virus 2019-03-09 Completed Universit y of Vaccine Quad .5 mL 00:00:00 [facility] 6+ MO Branch Influenza Virus 2019-03-09 Completed Universit y of Vaccine Quad .5 mL 00:00:00 [facility] 6+ MO Branch Influenza Virus 2019-03-09 Completed Universit y of Vaccine Quad .5 mL 00:00:00 [facility] 6+ MO Branch Influenza Virus 2019-03-09 Completed Universit y of Vaccine Quad .5 mL 00:00:00 [facility] 6+ MO Branch Influenza Virus 2019-03-09 Completed Universit y of Vaccine Quad .5 mL 00:00:00 [facility] 6+ MO Branch Influenza Virus 2019-03-09 Completed Universit y of Vaccine Quad .5 mL 00:00:00 [facility] 6+ MO Branch Pneumococcal 13 2018-02-21 Completed Universit y of Conjugate, PCV13 00:00:00 [facility] dical (Prevnar 13) Branch Pneumococcal 13 2018-02-21 Completed Universit y of Conjugate, PCV13 00:00:00 [facility] dical (Prevnar 13) Branch Pneumococcal 13 2018-02-21 Completed Universit y of Conjugate, PCV13 00:00:00 [place] [facility] (Prevnar 13) Branch Pneumococcal 13 2018-02-21 Completed Universit y of Conjugate, PCV13 00:00:00 [facility] dical (Prevnar 13) Branch Pneumococcal 13 2018-02-21 Completed Universit y of Conjugate, PCV13 00:00:00 [place] [facility]ical (Prevnar 13) Branch Pneumococcal 13 2018-02-21 Completed Universit y of Conjugate, PCV13 00:00:00 [facility] dical (Prevnar 13) Branch Pneumococcal 13 2018-02-21 Completed Universit y of Conjugate, PCV13 00:00:00 [facility] dical (Prevnar 13) Branch Pneumococcal 13 2018-02-21 Completed Universit y of Conjugate, PCV13 00:00:00 [facility] dical (Prevnar 13) Branch Vital Signs Vital Name Observation Time Observation Value Comments Source Systolic blood 2020-07-15 17:23:00 127 mm[Hg] Univer sity of pressure [facility] Diastolic blood 2020-07-15 17:23:00 87 mm[Hg] Unive rsity of pressure [facility] Heart rate 2020-07-15 17:23:00 94 /min [facility] Body weight 2020-07-15 17:23:00 122.471 kg [facility] BMI 2020-07-15 17:23:00 37.66 kg/m2 [facility] Oxygen saturation in 2020-07-15 17:23:00 99 /min University of Arterial blood by [facility] Pulse oximetry Branch Systolic blood 2020-07-15 17:23:00 127 mm[Hg] Univer sity of pressure [facility] Diastolic blood 2020-07-15 17:23:00 87 mm[Hg] Unive rsity of pressure [facility] Heart rate 2020-07-15 17:23:00 94 /min [facility] Body weight 2020-07-15 17:23:00 122.471 kg [facility] BMI 2020-07-15 17:23:00 37.66 kg/m2 [facility] Oxygen saturation in 2020-07-15 17:23:00 99 /min University of Arterial blood by [facility] Pulse oximetry Branch Systolic blood 2019-10-30 16:24:00 138 mm[Hg] Univer sity of pressure [facility] Diastolic blood 2019-10-30 16:24:00 82 mm[Hg] Unive rsity of pressure [facility] Heart rate 2019-10-30 16:24:00 82 /min [facility] Body temperature 2019-10-30 16:24:00 37 Jania Univ ersity of [facility] Respiratory rate 2019-10-30 16:24:00 18 /min Univ ersity of [facility] Body height 2019-10-30 16:24:00 180.3 cm [facility] Body weight 2019-10-30 16:24:00 122.585 kg [facility] BMI 2019-10-30 16:24:00 37.69 kg/m2 [facility] Procedures Procedure Date / Time Performed Performing Clinician [facility] e ASSIGNMENT OF BENEFITS 2019-10-30 16:02:32 Doctor Unassigned, No [facility] Branch Encounters Start End Encounter Admission Attending Care Care Encounter Source Date/Time Date/Time Type Type Clinicians Facility Department ID 2021-04-11 2021-04-11 Refill López [facility] 1.2.840.114 [id number] Univers 00:00:00 00:00:00 Sidney ESTRADA [id number] [id number] [phone] [address] 2021-04-03 2021-04-03 Refill Doctor [facility] 1.2.840.114 [id number] Univers 00:00:00 00:00:00 Unassigned, [place] [id number] ity [id number] [phone] [address] 2021-04-03 2021-04-03 Patient Doctor [facility] 1.2.840.114 [id number] Univers 00:00:00 00:00:00 Secure Msg UnassignedCHARLOTTE [id number] ity [place] [facility] [id number] [phone] [address] 2020-10-07 2020-10-07 Telephone [facility] 1.2.840.114 [id number] Univers 00:00:00 00:00:00 Sidney Estrada [id number] [id number] [phone] [address] 2020-09-21 2020-09-21 Telephone [facility] 1.2.840.114 [id number] Univers 00:00:00 00:00:00 Sidney Estrada [id number] [id number] [phone] [address] 2020-08-09 2020-08-09 Outpatient R SIOBHAN [facility] [id number] Univers 11:50:00 11:50:00 ZITA [id number] [facility] 2020-08-09 2020-08-09 Outpatient Daniel MCGHEESIOBHAN, [facility] [id number] Univers 11:50:00 11:50:00 ZITA [facility] 2020-07-19 2020-07-19 Outpatient [facility] [id number] Univers 10:20:00 10:20:00 [id number] [facility] 2020-07-19 2020-07-19 [facility] [id number] Univers 10:20:00 10:20:00 ZITA [facility] 2020-07-18 2020-07-18 Telephone [facility] 1.2.840.114 [id number] 00:00:00 00:00:00 Sidney Estrada [id number] [place] [id number] Professio [phone] [address] 2020-07-18 2020-07-18 Telephone López, [facility] 1.2.840.114 [id number] Univers 00:00:00 00:00:00 Sidney Estrada [id number] [id number] [phone] Md dic[address] 2020-07-15 2020-07-15 [facility] 1.2.840.114 [id number] 11:11:25 12:03:14 Visit Sidney Estrada [id number] [place] [id number] Professio [phone] [address] 2020-07-15 2020-07-15 Office [facility] 1.2.840.114 [id number] Univers 11:11:25 12:03:14 Visit Sidney Estrada [id number] [id number] [phone] Md dical [address] 2020-07-15 2020-07-15 Outpatient SIDNEY AYON [facility] [id number] Univers 11:20:00 11:20:00 SIDNEY DAWN [id number] itshira [facility] 2020-07-15 2020-07-15 Outpatient R SIDNEY DAWN [facility] [id number] Univers 11:20:00 11:20:00 SIDNEY DAWN itshiar [facility] 2020-07-08 2020-07-08 Outpatient R SIDNEY DAWN [facility] [id number] Univers 15:00:00 15:00:00 SIDNEY DAWN [id number] itshira [facility] 2020-07-08 2020-07-08 Outpatient R SIDNEY DAWN [facility] [id number] Univers 15:00:00 15:00:00 SIDNEY DAWN shira [facility] 2020-05-24 2020-05-24 [facility] 1.2.840.114 [id number] Univers 00:00:00 00:00:00 Sidney Estrada [id number] [id number] [phone] [address] 2020-05-20 2020-05-20 [facility] 1.2.840.114 [id number] Univers 00:00:00 00:00:00 Sidney Estrada [id number] [id number] [phone] [address] 2020-05-18 2020-05-18 [facility] 1.2.840.114 [id number] Univers 00:00:00 00:00:00 Sidney Estrada [id number] [id number] [phone] [address] 2020-01-22 2020-01-22 Dallin López [facility] 1.2.840.114 [id number] Univers 00:00:00 00:00:00 Sidney Estrada [id number] [id number] [phone] Md dical nal 0[address] [facility] 2019-10-30 2019-10-30 Office López [facility] 1.2.840.114 [id number] Univers 11:03:09 13:38:11 Visit Sidney Estrada [id number] [id number] [phone] Md dical nal [address] [place] [address] 2019-10-30 2019-10-30 Outpatient SIDNEY AYON [facility] [id number] Univers 11:00:00 11:00:00 [id number]-10[facility] 2019-10-30 Outpatient SIDNEY AYON [facility] [id number] Univers 11:00:00 11:00:00 SIDNEY DAWN ity [facility] 2019-10-30 2019-10-30 Orders Doctor BYNUM 1.2.840.114 [id number] Univers 00:00:00 00:00:00 Only Unassigned, NICOLA [id number] ity of [place] [facility] [id number] Kelvin as [phone] [place] [address] Branch Results This patient has no known results.
[2021-07-17] MEDS ORDERED: DIPHENHYDRAMINE 50 MG/ML VIAL ONE (22:56)
[2021-07-17] MEDS ORDERED: METOCLOPRAMIDE 10 MG/2mL INJ ONE (22:56)
[2021-07-18 00:11] LABS: SARS-COV-2 RT PCR NEGATIVE (NEGATIVE)
--- NOTE | 2021-07-18 00:17 | ER ---
Nurse's Notes [facility] Name: Cristina Cantrell Age: 61 yrs Sex: Female : 1960 Arrival Date: 07/17/2021 Time: 20:06 Bed 15 Private MD: Diagnosis: Acute upper respiratory infection, unspecified;Migraine without aura, not intractable Presentation: 07/17 21:30 Chief complaint: Patient states: migraine starting at 1330 today. took headache lg3 medications at home with no relief. Coronavirus screen: Client denies travel out of the [place] in the last 14 days. At this time, the client does not indicate any symptoms associated with coronavirus-19. Ebola Screen: No symptoms or risks identified at this time. Initial Sepsis Screen: Does the patient meet any 2 criteria? No. Patient's initial sepsis screen is negative. Does the patient have a suspected source of infection? No. Patient's initial sepsis screen is negative. Risk Assessment: Do you want to hurt yourself or someone else? Patient reports no desire to harm self or others. Onset of symptoms was July 17, 2021. 21:30 Method Of Arrival: Ambulatory 3 21:30 Acuity: JOON 4 lg3 Triage Assessment: 21:33 Headache History: The patient has had previous headaches and this one is similar to lg3 previous episodes. General: Appears in no apparent distress. uncomfortable, Behavior is calm, cooperative. Pain: Complains of pain in forehead Pain does not radiate. Pain currently is 10 out of 10 on a pain scale. Quality of pain is described as crushing, heavy, pressure, sharp, Pain began this afternoon. Neuro: No deficits noted. Level of Consciousness is awake, alert, obeys commands, Oriented to person, place, time, situation. Respiratory: No deficits noted. Airway is patent Trachea midline Respiratory effort is even, unlabored, Respiratory pattern is regular, symmetrical. 07/18 00:34 Pain: Also complains of photophobia. tk1 Historical: - Allergies: 07/17 21:33 No Known Allergies; lg3 - Home Meds: 21:33 lisinopril Oral [Active]; Dexilant 30 mg Oral CpDB 1 cap once daily [Active]; Vitamin D lg3 Oral [Active]; Pristiq 50 mg oral Tb24 [Active]; Rybelsus 7 mg oral tab [Active]; pantoprazole 40 mg oral TbEC [Active]; rosuvastatin 5 mg oral tab [Active]; Stool Softener Oral [Active]; - PMHx: 21:33 Diabetes - NIDDM; Hypertension; Migraines; lg3 - PSHx: 21:33 section; right foot; lg3 - Immunization history:: Adult Immunizations up to date, Client reports receiving the 2nd dose of the Covid vaccine, pfixer X3. - Social history:: Smoking status: Patient denies any tobacco usage or history of. Patient uses alcohol, only on a social basis. Screenin:45 Abuse screen: Denies threats or abuse. Denies injuries from another. Nutritional tk1 screening: No deficits noted. Tuberculosis screening: No symptoms or risk factors identified. Fall Risk None identified. Assessment: 22:45 General: Appears distressed, uncomfortable, well groomed, well developed, well tk1 nourished, Behavior is calm, cooperative. Pain: Complains of pain in head Pain does not radiate. Pain currently is 10 out of 10 on a pain scale. Quality of pain is described as aching, Pain began suddenly. 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 Gait is steady, Speech is normal, Facial symmetry appears normal, Pupils are PERRLA, Intact Reports headache. Cardiovascular: No deficits noted. Capillary refill < 3 seconds is brisk in bilateral fingers Clubbing of nail beds is absent. Respiratory: Airway is patent Trachea midline Respiratory effort is even, unlabored, Respiratory pattern is regular, symmetrical. GI: No deficits noted. No signs and/or symptoms were reported involving the gastrointestinal system. : No deficits noted. No signs and/or symptoms were reported regarding the genitourinary system. EENT: No deficits noted. No signs and/or symptoms were reported regarding the EENT system. Derm: No deficits noted. No signs and/or symptoms reported regarding the dermatologic system. Musculoskeletal: No deficits noted. No signs and/or symptoms reported regarding the musculoskeletal system. 23:45 Reassessment: No changes from previously documented assessment. Patient and/or family tk1 updated on plan of care and expected duration. Pain level reassessed. Patient is alert, oriented x 3, equal unlabored respirations, skin warm/dry/pink. Pain: Complains of pain in head Pain currently is 6 out of 10 on a pain scale. 07/18 00:28 Reassessment: D/C per MD order. Discharge instructions given to patient. Verbalized tk1 understnaing. Vital Signs: 07/17 21:30 BP 148 / 89; Pulse 92; Resp 18 S; Temp 98.1(TE); Pulse Ox 98% on R/A; Weight 127.01 kg lg3 (R); Height 5 ft. 11 in. (180.34 cm) (R); Pain 10/10; 22:45 BP 148 / 81 LA Supine (auto/reg); Pulse 83 MON; Resp 18; Pulse Ox 97% on R/A; Pain tk1 10/10; 23:46 BP 136 / 75 LA Supine (auto/reg); Pulse 80 MON; Resp 18; Pulse Ox 96% on R/A; Pain 5/10;tk1 21:30 Body Mass Index 39.05 (127.01 kg, 180.34 cm) lg3 [place] Coma Score: 22:45 Eye Response: spontaneous(4). Verbal Response: oriented(5). Motor Response: obeys tk1 commands(6). Total: 15. ED Course: 20:06 Patient arrived in ED. kc5 21:33 Triage completed. lg3 21:33 Arm band placed on right wrist. lg3 22:20 Rosario Manley is Primary Nurse. tk1 22:23 Dave Adkins PA is PHCP. jr8 22:23 Keith Cuevas MD is Attending Physician. jr8 22:45 Patient has correct armband on for positive identification. Bed in low position. Call tk1 light in reach. Side rails up X2. Warm blanket given. 23:07 No provider procedures requiring assistance completed. Inserted saline lock: 20 gauge tk1 in right antecubital area, using aseptic technique. 23:45 COVID-19/FLU A+B (Document "Date of Onset" if Symptomatic) Sent. tk1 07/18 00:28 IV discontinued, intact, bleeding controlled, No redness/swelling at site. Pressure tk1 dressing applied. Administered Medications: 07/17 22:50 Drug: Benadryl (diphenhydrAMINE) 25 mg Route: IVP; Rate: bolus; Infused Over: 2 mins; tk1 Site: right antecubital; 23:46 Follow up: Response: Pain is unchanged, physician notified tk1 07/18 00:33 Follow up: Response: Pain is decreased tk1 07/17 22:53 Drug: Reglan (metoCLOPramide) 10 mg Route: IVP; Rate: bolus; Infused Over: 2 mins; tk1 Site: right antecubital; 23:46 Follow up: Response: Pain is unchanged, physician notified tk1 07/18 00:33 Follow up: Response: Pain is decreased tk1 00:31 Not Given (IV d/c'd prior to order.): Demerol (meperidine) 25 mg IVP once; RASS on tk1 ADMIN: Combtv4, Very Agttd3, Agttd2, Rstlss1, AlertClm0, Drwsy-1, Lt Sdtn-2, Mod Sdtn-3, Dp Sdtn-4, UnArsble-5 Outcome: 00:17 Discharge ordered by . jr8 00:28 Discharged to home ambulatory, with family. tk1 00:28 Condition: stable 00:28 Discharge instructions given to patient, Instructed on discharge instructions, follow up and referral plans. medication usage. 00:32 Patient left the ED. tk1 Signatures: Dave Adkins PA PA jr8 Keke Edwards, KELLEY RN lg3 Valarie Baig5 Rosario Manley tk1 Corrections: (The following items were deleted from the chart) 07/17 23:08 23:07 Inserted saline lock: 20 gauge in right antecubital area, using aseptic tk1 technique. tk1 23:48 23:45 Pain: Complains of pain in head Pain currently is 10 out of 10 on a pain scale. tk1 tk1
--- NOTE | 2021-07-18 00:18 | EDPHYS ---
Physician Documentation [facility] Name: Cristina Cantrell Age: 61 yrs Sex: Female : 1960 Arrival Date: 07/17/2021 Time: 20:06 Bed 15 Private MD: ED Physician Keith Cuevas HPI: 07/17 23:37 This 61 yrs old Female presents to ER via Ambulatory with complaints of Headache. jr8 23:37 The patient complains of pain to the forehead. Onset: The symptoms/episode jr8 began/occurred acutely, today. Associated signs and symptoms: Pertinent positives: sore throat and cough. Severity of symptoms: At its worst the pain was moderate, in the emergency department the pain is unchanged. Headache History: The patient has had previous headaches and this one is similar to previous episodes. It is unknown whether or not the patient has had similar symptoms in the past. The patient has not recently seen a physician. Stated that she took her usual home meds but is not working. Also developed cough and sore throat today . Historical: - Allergies: 21:33 No Known Allergies; lg3 - Home Meds: 21:33 lisinopril Oral [Active]; Dexilant 30 mg Oral CpDB 1 cap once daily [Active]; Vitamin D lg3 Oral [Active]; Pristiq 50 mg oral Tb24 [Active]; Rybelsus 7 mg oral tab [Active]; pantoprazole 40 mg oral TbEC [Active]; rosuvastatin 5 mg oral tab [Active]; Stool Softener Oral [Active]; - PMHx: 21:33 Diabetes - NIDDM; Hypertension; Migraines; lg3 - PSHx: 21:33 section; right foot; lg3 - Immunization history:: Adult Immunizations up to date, Client reports receiving the 2nd dose of the Covid vaccine, pfixer X3. - Social history:: Smoking status: Patient denies any tobacco usage or history of. Patient uses alcohol, only on a social basis. ROS: 23:37 Eyes: Negative for injury, pain, redness, and discharge, Neck: Negative for injury, jr8 pain, and swelling, Cardiovascular: Negative for chest pain, palpitations, and edema, Abdomen/GI: Negative for abdominal pain, nausea, vomiting, diarrhea, and constipation, Back: Negative for injury and pain, MS/Extremity: Negative for injury and deformity, Skin: Negative for injury, rash, and discoloration. 23:37 ENT: Positive for sore throat. 23:37 Respiratory: Positive for cough. 23:37 Neuro: Positive for headache. Exam: 23:37 Constitutional: This is a well developed, well nourished patient who is awake, alert, jr8 and in no acute distress. Eyes: Pupils equal round and reactive to light, extra-ocular motions intact. Lids and lashes normal. Conjunctiva and sclera are non-icteric and not injected. Cornea within normal limits. Periorbital areas with no swelling, redness, or edema. ENT: Nares patent. No nasal discharge, no septal abnormalities noted. Tympanic membranes are normal and external auditory canals are clear. Oropharynx with no redness, swelling, or masses, exudates, or evidence of obstruction, uvula midline. Mucous membranes moist. Neck: Trachea midline, no thyromegaly or masses palpated, and no cervical lymphadenopathy. Supple, full range of motion without nuchal rigidity, or vertebral point tenderness. No Meningismus. Cardiovascular: Regular rate and rhythm with a normal S1 and S2. No gallops, murmurs, or rubs. Normal PMI, no JVD. No pulse deficits. Respiratory: Lungs have equal breath sounds bilaterally, clear to auscultation and percussion. No rales, rhonchi or wheezes noted. No increased work of breathing, no retractions or nasal flaring. Abdomen/GI: Soft, non-tender, with normal bowel sounds. No distension or tympany. No guarding or rebound. No evidence of tenderness throughout. Back: No spinal tenderness. No costovertebral tenderness. Full range of motion. Skin: Warm, dry with normal turgor. Normal color with no rashes, no lesions, and no evidence of cellulitis. MS/ Extremity: Pulses equal, no cyanosis. Neurovascular intact. Full, normal range of motion. Neuro: Awake and alert, GCS 15, oriented to person, place, time, and situation. Cranial nerves II-XII grossly intact. Motor strength 5/5 in all extremities. Sensory grossly intact. Cerebellar exam normal. Normal gait. Vital Signs: 21:30 BP 148 / 89; Pulse 92; Resp 18 S; Temp 98.1(TE); Pulse Ox 98% on R/A; Weight 127.01 kg lg3 (R); Height 5 ft. 11 in. (180.34 cm) (R); Pain 10/10; 22:45 BP 148 / 81 LA Supine (auto/reg); Pulse 83 MON; Resp 18; Pulse Ox 97% on R/A; Pain tk1 10/10; 23:46 BP 136 / 75 LA Supine (auto/reg); Pulse 80 MON; Resp 18; Pulse Ox 96% on R/A; Pain 5/10;tk1 21:30 Body Mass Index 39.05 (127.01 kg, 180.34 cm) lg3 Jennifer Coma Score: 22:45 Eye Response: spontaneous(4). Verbal Response: oriented(5). Motor Response: obeys tk1 commands(6). Total: 15. MDM: 22:23 Patient medically screened. jr8 07/18 00:16 Data reviewed: vital signs, nurses notes, lab test result(s), and as a result, I will jr8 discharge patient. Data interpreted: Pulse oximetry: on room air is 96 %. Interpretation: normal. Counseling: I had a detailed discussion with the patient and/or guardian regarding: the historical points, exam findings, and any diagnostic results supporting the discharge/admit diagnosis, lab results, the need for outpatient follow up, a family practitioner, to return to the emergency department if symptoms worsen or persist or if there are any questions or concerns that arise at home. Response to treatment: the patient's symptoms have markedly improved after treatment. 07/17 22:37 Order name: COVID-19/FLU A+B (Document "Date of Onset" if Symptomatic); Complete Time: 8 00:14 07/17 22:37 Order name: IV; Complete Time: 23:45 jr8 Administered Medications: 07/17 22:50 Drug: Benadryl (diphenhydrAMINE) 25 mg Route: IVP; Rate: bolus; Infused Over: 2 mins; tk1 Site: right antecubital; 23:46 Follow up: Response: Pain is unchanged, physician notified tk1 07/18 00:33 Follow up: Response: Pain is decreased tk1 07/17 22:53 Drug: Reglan (metoCLOPramide) 10 mg Route: IVP; Rate: bolus; Infused Over: 2 mins; tk1 Site: right antecubital; 23:46 Follow up: Response: Pain is unchanged, physician notified tk1 07/18 00:33 Follow up: Response: Pain is decreased tk1 00:31 Not Given (IV d/c'd prior to order.): Demerol (meperidine) 25 mg IVP once; RASS on tk1 ADMIN: Combtv4, Very Agttd3, Agttd2, Rstlss1, AlertClm0, Drwsy-1, Lt Sdtn-2, Mod Sdtn-3, Dp Sdtn-4, UnArsble-5 Disposition: 00:57 Co-signature as Attending Physician, Keith Cuevas MD I agree with the assessment and kdr plan of care. Disposition Summary: 07/18/21 00:17 Discharge Ordered Location: Home jr8 Problem: new jr8 Symptoms: have improved jr8 Condition: Stable jr8 Diagnosis - Acute upper respiratory infection, unspecified jr8 - Migraine without aura, not intractable jr8 Followup: jr8 - With: Private Physician - When: 2 - 3 days - Reason: Recheck today's complaints, Continuance of care, Re-evaluation by your physician Discharge Instructions: - Discharge Summary Sheet jr8 - Migraine Headache jr8 - Upper Respiratory Infection, Adult jr8 Forms: - Medication Reconciliation Form jr8 - Thank You Letter jr8 - Antibiotic Education jr8 - Prescription Opioid Use jr8 Prescriptions: - Tessalon Perles 100 mg Oral Capsule - take 1 capsule by ORAL route every 8 hours As needed; 15 capsule; Refills: 0, jr8 Product Selection Permitted Signatures: Dispatcher [employer] EDMS Keith Cuevas MD MD [facility] Dave Adkins PA PA jr8 Keke Edwards RN RN [email or web address] Rosario Manley tk1
[2021-07-18 03:05] VITALS: TEMP 98.1
[2021-07-18 03:08] VITALS: BP 136/75; O2SAT 96
== END 2021-07-18 00:32 | disposition home or self-care (01) ==
LOC: ER 20:05
DX: J06.9 Acute upper respiratory infection, unspecified (principal); G43.009 Migraine without aura, not intractable, without status migrainosus; E11.9 Type 2 diabetes mellitus without complications; I10 Essential (primary) hypertension; Z20.822 Contact with and (suspected) exposure to COVID-19
CPT/HCPCS: 0240U; 96375; 96374; 99283; J2765; J1200

== ENCOUNTER 2022-07-06 14:18 | Emergency (ER) | payer OTHER ==
--- OUTSIDE RECORDS SUMMARY | 2022-07-06 14:23 | XMS REPORT | Continuity of Care Document ---
:1960 Author Organization [facility] t Address [address] [place] [place] [address] Care Team Providers Name Role Phone PCP, PATIENT DOES NOT HAVE A Primary Care Physician UnavailDilan King Attending Clinician FIDE FOLEY Attending Clinician Unavailable Jurgen Mix Attending Clinician Unavailable Sidney Dawn MD Attending Clinician Doctor Unassigned, [place] Attending Clinician Unavailable ZITA MCCANN Attending Clinician Unavailable SIDNEY DAWN Attending Clinician Unavailable SIDNEY DAWN Attending Clinician Unavailable KNOW, DOES_NOT Admitting Clinician Unavailable Jurgen Mix Admitting Clinician Unavailable Payers Payer Name Policy Type Policy Number Effective Date Expiration Date S ju [employer] [id number] 2018 OUT OF NETWORK 00:00:00 Problems Condition Condition Condition Status Onset Resolution Last Treating Co mments Source Name Details Category Date Date Treatment Clinician Date Hyperlipid Hyperlipi Problem Active 2022-07-06 Memoria emia demia 15:19:15 l (disorder) (disorder) He rmann Active Problem 07/06/2022 Sylvie Neuro,[facility] [place] Hypertensi Hypertens Problem Active 2022-07-06 Memoria ve dina 15:19:15 l disorder, disorder, Herm patricio systemic systemic arterial arterial (disorder) (disorder) Active Problem 07/06/2022 Sylvie Neuro,[facility]NA [facility] [place] Migraine Migraine Problem Active 2022-07-06 Memoria (disorder) (disorder) 15:19:15 l Active Vivian Problem 07/06/2022 Mischer Neuro,[facility]NA [facility] [place] Diabetes Diabetes Problem Active 2022-07-06 Memoria mellitus mellitus 15:19:15 l type 2 type 2 Juan (disorder) (disorder) Active Problem 07/06/2022 Sylvie Neuro,[facility]NA [facility] [place] Allergies, Adverse Reactions, Alerts Allergy Allergy Status Severity Reaction(s) Onset Inactive Treating Comm ents Source Name Type Date Date Clinician No Known DA Active [facility]ie 06-29 [place] [facility] 00:[facility]: [facility] No Known No Known Active Memori a Medicati Medicati l on on [place] Allergie Allergie s NO KNOWN Drug Active Univers ALLERGIE Class [facility]y of [facility] [place] [facility] Social History Social Habit Start Date Stop Date Quantity Comments Source Exposure to Not sure [facility] SARS-CoV-2 (event) [facility] Social History 2022-05-22 2022-05-22 [facility] 15:50:38 15:50:38 Tobacco use and 2020-07-15 2020-07-15 Never used [facility] exposure 00:00:00 00:00:00 [facility] Smoking Status Start Date Stop Date Source Unknown if ever smoked [facility] Tobacco smoking status [facility] Medications Ordered Filled Start Stop Current Ordering Indication Dosage Frequency Signature Comments Components Source Medication Medication Date Date Medication? Clinician (SIG) [facility] Yes 75 mg = 1 Me moria 75 mg oral 2-27 tab, PO, l tablet, 15:43: Q48H, # 16 Herm patricio disintegrat 00 tab, 1 ing Refill(s), Pharmacy: [id number], 175.26, cm, 05/22/22 9:20:00 [employer]ANK [employer], Height, 120, kg, 05/22/22 9:20:00 B[employer] MESSEN[employer], Weight Ozempic 2 2021-05 Yes INJECT 0.5 Me moria mg/1.5 mL 2-27 MG l (0.25 mg or 15:05: SUBCUTANEO Juan 0.5 mg 00 USLY ONCE dose) WEEKLY subcutaneou s solution rosuvastati 2021-05 Yes TAKE 1 Jovany angelina n 5 mg oral 2-27 TABLET BY l tablet 15:05: MOUTH [place] 00 EVERY DAY hydrochloro 2021-05 Yes TAKE 1 Jovany angelina thiazide-li 2-27 TABLET BY l sinopril 25 15:05: MOUTH Abril nn mg-20 mg 00 DAILY oral tablet Dexilant 60 2021-05 Yes TAKE 1 Jovany angelina mg oral 2-27 CAPSULE BY l delayed 15:05: MOUTH Juan release 00 DAILY 30 capsule MINUTES BEFORE EATING BREAKFAST desvenlafax 2021-05 Yes TAKE 1 Jovany angelina ine 50 mg 2-27 TABLET BY l oral 15:05: MOUTH [place] tablet, 00 EVERY extended MORNING release Probiotic 2021-05 Yes 1 cap, PO, Me moria Formula 2-27 Daily, 0 l oral 15:04: Refill(s) Juan capsule 00 Vitamin D3 2021-05 Yes 0 Memoria 2-27 Refill(s) l 15:04: [place] 00 vitamin E 2021-05 Yes PO, 0 Memoria 2-27 Refill(s) l 15:04: [place] 00 1 2021-05 Yes 0 Memoria oral 2-27 Refill(s) l capsule 15:04: [place] 00 non-formula 2021-05 Yes stool Memor ia ry 2-27 softner, l 15:04: Refill(s) [place] 00 0 rizatriptan 2020-05 Yes 10mg Take 1 Univ [...] (eight) Branch hours as needed (for headache). isometh-dic Yes [id number] 1{capsu Take 1 Univers hloral-acet 5-25 9105 le} capsule by it y of aminophn 00:00: mouth [place] 65-100-325 00 every 4 Medica l mg capsule (four) Branch hours as needed for Migraine. lasmiditan Yes [id number] 1{tbl} Take 1 Univers 100 mg Tab 5-25 9105 tablet by ity of 00:00: mouth as [place] 00 needed (At Medical the onset Branch of a headache, no more than one tablet in 24 hours). isometh-dic Yes [id number] 1{capsu Take 1 Univers hloral-acet 5-25 9105 le} capsule by it y of aminophn 00:00: mouth [place] 65-100-325 00 every 4 Medica l mg capsule (four) Branch hours as needed for Migraine. lasmiditan Yes [id number] 1{tbl} Take 1 Univers 100 mg Tab 5-25 9105 tablet by ity of 00:00: mouth as [place] 00 needed (At Medical the onset Branch of a headache, no more than one tablet in 24 hours). isometh-dic Yes [id number] 1{capsu Take 1 Univers hloral-acet 5-25 9105 le} capsule by it y of aminophn 00:00: mouth [place] 65-100-325 00 every 4 Medica l mg capsule (four) Branch hours as needed for Migraine. lasmiditan Yes [id number] 1{tbl} Take 1 Univers 100 mg Tab 5-25 9105 tablet by ity of 00:00: mouth as [place] 00 needed (At Medical the onset Branch of a headache, no more than one tablet in 24 hours). isometh-dic Yes [id number] 1{capsu Take 1 Univers hloral-acet 5-25 9105 le} capsule by it y of aminophn 00:00: mouth [place] 65-100-325 00 every 4 Medica l mg capsule (four) Branch hours as needed for Migraine. lasmiditan Yes [id number] 1{tbl} Take 1 Univers 100 mg Tab 5-25 9105 tablet by ity of 00:00: mouth as [place] 00 needed (At Medical the onset Branch of a headache, no more than one tablet in 24 hours). isometh-dic Yes [id number] 1{capsu Take 1 Univers hloral-acet 5-25 9105 le} capsule by it y of aminophn 00:00: mouth [place] 65-100-325 00 every 4 Medica l mg capsule (four) Branch hours as needed for Migraine. lasmiditan Yes [id number] 1{tbl} Take 1 Univers 100 mg Tab 5-25 9105 tablet by ity of 00:00: mouth as [place] 00 needed (At Medical the onset Branch of a headache, no more than one tablet in 24 hours). cetirizine 2020- No 10mg Take 10 mg Univers (ZYRTEC) 10 2-15 07-19 by mouth ity of mg tablet 17:36: 00:00 daily. [place] 43 :00 Medical Branch cetirizine 2020- No 10mg Take 10 mg Univers (ZYRTEC) 10 2-19 -19 by mouth ity of mg tablet 17:36: 00:00 daily. [place] 43 :00 Medical Branch ZOLMITRIPTA 2019-05 Yes [id number] DISSOLVE 1 Univers N 5 mg 2-29 9105 TABLET BY ity of disintegrat 00:00: [place]TH [place] tablet 00 NEEDED Medical MIGRAINE Branch ZOLMITRIPTA 2019-05 Yes [id number] DISSOLVE 1 Univers N 5 mg 2-29 9105 TABLET BY ity of disintegrat 00:00: [place] tablet 00 NEEDED Medical MIGRAINE Branch ZOLMITRIPTA 2019-05 Yes [id number] DISSOLVE 1 Univers N 5 mg 2-29 9105 TABLET BY ity of disintegrat 00:00: [place] tablet 00 NEEDED Medical MIGRAINE Branch ZOLMITRIPTA 2019-05 Yes [id number] DISSOLVE 1 Univers N 5 mg 2-29 9105 TABLET BY ity of disintegrat 00:00: [place] tablet 00 NEEDED Medical MIGRAINE Branch ZOLMITRIPTA 2019-05 Yes [id number] DISSOLVE 1 Univers N 5 mg 2-29 9105 TABLET BY ity of disintegrat 00:00: [place] tablet 00 NEEDED Medical MIGRAINE Branch ZOLMITRIPTA 2019-05 Yes [id number] DISSOLVE 1 Univers N 5 mg 2-29 9105 TABLET BY ity of disintegrat 00:00: [place] 00 NEEDED Medical MIGRAINE Branch ZOLMITRIPTA 2019-05- No [id number] DISSOLVE 1 Univers N 5 mg 2-22 10- 9105 TABLET BY ity of disintegrat 00:00: 00:00 [place]TH [place] tablet 00 :00 NEEDED Medical MIGRAINE Branch AIMOVIG 2019-05 Yes [id number] INJECT 140 Univers AUTOINJECTO 2-28 9105 MG ity of R 140 mg/mL 00:00: SUBCUTANEO [place] AtIn 00 US ONCE Medical EVERY Branch MONTH AIMOVIG 2019-05 Yes [id number] INJECT 140 Univers AUTOINJECTO 2-28 9105 MG ity of R 140 mg/mL 00:00: SUBCUTANEO [place] AtIn 00 US ONCE Medical EVERY Branch MONTH AIMOVIG 2019-05- No [id number] INJECT 140 Univers AUTOINJECTO 2-28 - 9105 MG ity of R 140 mg/mL 00:00: 00:00 SUBCUTANEO [place] AtIn 00 :00 US ONCE Medical EVERY Branch MONTH AIMOVIG 2019-05- No [id number] INJECT 140 Univers AUTOINJECTO 2-28 - 9105 [...] max of 2 injections per day. SUMAtriptan Yes Inject 0.5 Univers 6 mg/0.5 [...] No Inject 0.5 Univers 6 mg/0.5 mL 9-11 05-25 ml under ity of injection 00:00: [...] hours as needed (for headache). proMETHazin 2020-0 2021- No 25mg Take 1 Uni vers e 25 mg 9-08 11-08 tablet by ity of tablet 00:00: 00:00 mouth [place] 00 :00 every 8 Medical (eight) Branch hours as needed (for headache). ZOLMitripta 2020-0 Yes [id number] 5mg Take 1 Univers n 5 mg 6-05 9105 tablet by ity of disintegrat 00:00: [place] tablet 00 needed for Med ical Migraine. Branch erenumab-ao 2019-0 Yes [id number] 140mg inject 140 Univers oe (AIMOVIG 10-29 9105 mg under ity of AUTOINJECTO 00:00: [place] R) 140 00 once every Medical mg/mL AtIn month. Branch ZOLMitripta 2020-0 Yes [id number] 5mg Take 1 Univers n 5 mg 6- 9105 tablet by ity of disintegrat 00:00: mouth [place] tablet 00 needed for Med ical Migraine. Branch erenumab-ao 2019-0 Yes [id number] 140mg inject 140 Univers oe (AIMOVIG 10-29 9105 mg under ity of AUTOINJECTO 00:00: [place] R) 140 00 once every Medical mg/mL AtIn month. Branch ZOLMitripta 2019-0 Yes [id number] 5mg Take 1 Univers n 5 mg - 9105 tablet by ity of disintegrat 00:00: mouth [place] tablet 00 needed for Med ical Migraine. Branch erenumab-ao 0 Yes [id number] 140mg inject 140 Univers oe (AIMOVIG 10-29 9105 mg under ity of AUTOINJECTO 00:00: [place] R) 140 00 once every Medical mg/mL AtIn month. Branch ZOLMitripta 2019-0 Yes [id number] 5mg Take 1 Univers n 5 mg 6- 9105 tablet by ity of disintegrat 00:00: mouth [place] tablet 00 needed for Med ical Migraine. Branch ZOLMitripta 0 2020- No [id number] 5mg Take 1 Univers n 5 mg 6-05-24 9105 tablet by ity of disintegrat 00:00: 00:00 mouth [place] tablet 00 :00 needed for Med ical Migraine. Branch erenumab-ao 2020- No [id number] 140mg inject 140 Univers oe (AIMOVIG 10-29 12-28 9105 mg under ity of AUTOINJECTO 00:00: 00:00 [place] R) 140 00 :00 once every Medical mg/mL AtIn month. Branch butalbital- 2018-0 Yes 1{capsu Take 1 U nivers aspirin-caf 6-18 le} capsule by it y of feine 00:00: mouth [place] (FIORINAL) 00 every 4 Medica l 50-325-40 (four) Branch mg per hours as capsule needed for Pain. butalbital- 2018- Yes 1{capsu Take 1 U nivers aspirin-caf [...] hours as capsule needed for Pain. butalbital- 2018- Yes 1{capsu Take 1 U nivers aspirin-caf [...] mouth ity of mg tablet 21:59: daily. [address] cetirizine 2017-05 Yes 10mg Take 10 mg U nivers (ZYRTEC) 10 0-09 by mouth ity of mg tablet 21:59: daily. [address] cetirizine 2017-05 Yes 10mg Take 10 mg U nivers (ZYRTEC) 10 0-09 by mouth ity of mg tablet 21:59: daily. [address] cetirizine 2017-05 Yes 10mg Take 10 mg U nivers (ZYRTEC) 10 0-09 by mouth ity of mg tablet 21:59: daily. [address] cetirizine 2017-05 Yes 10mg Take 10 mg U nivers (ZYRTEC) 10 0-09 by mouth ity of mg tablet 21:59: daily. [address] cetirizine 2017-05 Yes 10mg Take 10 mg U nivers (ZYRTEC) 10 0-09 by mouth ity of mg tablet 21:59: daily. [address] cetirizine 2017-05 Yes 10mg Take 10 mg U nivers (ZYRTEC) 10 0-09 by mouth ity of mg tablet 21:59: daily. [address] isometh-dic 2017-05 Yes 1{capsu Take 1 [...] 40 mg 8-29 ity of capsule 00:00: [place] 00 Medical Branch doxycycline 2018-0 Yes Univer s 40 mg 8-29 ity of capsule 00:00: [place] [address] Medical Branch doxycycline 2018-0 Yes Univer s 40 mg 8-29 ity of capsule 00:00: [place] [address] Medical Branch doxycycline 2018-0 Yes Univer s 40 mg 8-29 ity of capsule 00:00: [place] [address] Medical Branch doxycycline 2018-0 Yes Univer s 40 mg 8-29 ity of capsule 00:00: [place] [address] Medical Branch doxycycline 2018-0 Yes Univer s 40 mg 8-29 ity of capsule 00:00: [place] [address] Medical Branch doxycycline 2018-0 Yes Univer s 40 mg 8-29 ity of capsule 00:00: [place] [address] Medical Branch doxycycline 2018-0 2021- No Unive rs 40 mg 8-29 02-19 ity of capsule 00:00: 00:00 [place] 00 :00 Medical Branch doxycycline 2018-0 2021- No Unive rs 40 mg 8-29 02-19 ity of capsule 00:00: 00:00 [place] 00 :00 Medical Branch metFORMIN 2018-0 Yes Univers 500 mg 8-25 ity of tablet 00:00: [place] 00 Medical Branch metFORMIN 2018-0 Yes Univers 500 mg 8-25 ity of tablet 00:00: [place] 00 Medical Branch metFORMIN 2018-0 Yes Univers 500 mg 8-25 ity of tablet 00:00: [place] [address] Medical Branch metFORMIN 2018-0 Yes Univers 500 mg 8-25 ity of tablet 00:00: [place] [address] Medical Branch metFORMIN 2018-0 Yes Univers 500 mg 8-25 ity of tablet 00:00: [place] 00 Medical Branch metFORMIN 2018-0 Yes Univers 500 mg 8-25 ity of tablet 00:00: [place] 00 Medical Branch metFORMIN 2018-0 Yes Univers 500 mg 8-25 ity of tablet 00:00: [place] 00 Medical Branch metFORMIN 2018-0 2021- No Univers 500 mg 8-25 02-19 ity of tablet 00:00: 00:00 [place] 00 :00 Medical Branch metFORMIN 2018-0 1- No Univers 500 mg 8-25 -19 ity of tablet 00:00: 00:00 [place] 00 :00 Medical Branch TRINTELLIX 2018-0 Yes Univers 20 mg Tab 8-03 ity of 00:00: [place] 00 Medical Branch TRINTELLIX 2018-0 Yes Univers 20 mg Tab 8-03 ity of 00:00: [place] 00 Medical Branch TRINTELLIX 2018-0 Yes Univers 20 mg Tab 8-03 ity of 00:00: [place] [address] Medical Branch TRINTELLIX 2018-0 Yes Univers 20 mg Tab 8-03 ity of 00:00: [place] 00 Medical Branch TRINTELLIX 2018-0 Yes Univers 20 mg Tab 8-03 ity of 00:00: [place] 00 Medical Branch TRINTELLIX 2018-0 Yes Univers 20 mg Tab 8-03 ity of 00:00: [place] 00 Medical Branch TRINTELLIX 2018-0 Yes Univers 20 mg Tab 8-03 ity of 00:00: [place] 00 Medical Branch TRINTELLIX 2018-0 1- No Univer s 20 mg Tab 8-03 02-19 ity of 00:00: 00:00 [place] 00 :00 Medical Branch TRINTELLIX 2018-0 1- No Univer s 20 mg Tab 8-03 02-19 ity of 00:00: 00:00 [place] 00 :00 Medical Branch esomeprazol 2018-0 Yes Univer s e 40 mg 7-27 ity of capsule 00:00: [place] 00 Medical Branch esomeprazol 2018-0 Yes Univer s e 40 mg 7-27 ity of capsule 00:00: [place] 00 Medical Branch esomeprazol 2018-0 Yes Univer s e 40 mg 7-27 ity of capsule 00:00: [place] 00 Medical Branch esomeprazol 2018-0 Yes Univer s e 40 mg 7-27 ity of capsule 00:00: [place] [address] Medical Branch esomeprazol 2018-0 Yes Univer s e 40 mg 7-27 ity of capsule 00:00: [place] [facility] esomeprazol 2018-0 Yes Univer s e 40 mg 7-27 ity of capsule 00:00: [place] [facility] esomeprazol 2018-0 Yes Univer s e 40 mg 7-27 ity of capsule 00:00: [place] [facility] esomeprazol 2018-0 Yes Univer s e 40 mg 7-27 ity of capsule 00:00: [place] [facility] esomeprazol 2018-0 Yes Univer s e 40 mg 7-27 ity of capsule 00:00: [place] [facility] esomeprazol 2018-0 Yes Univer s e 40 mg 7-27 ity of capsule 00:00: [place] [facility] esomeprazol 2018-0 Yes Univer s e 40 mg 7-27 ity of capsule 00:00: [place] [facility] esomeprazol 2018-0 Yes Univer s e 40 mg 7-27 ity of capsule 00:00: [place] [facility] esomeprazol 2018-0 Yes Univer s e 40 mg 7-27 ity of capsule 00:00: [place] [facility] esomeprazol 2018-0 Yes Univer s e 40 mg 7-27 ity of capsule 00:00: [place] [facility] esomeprazol 2018-0 Yes Univer s e 40 mg 7-27 ity of capsule 00:00: [place] [facility] esomeprazol 2018-0 Yes Univer s e 40 mg 7-27 ity of capsule 00:00: [place] [facility] lisinopril- 2018-0 Yes Univer s hydrochloro 7-18 ity of thiazide 00:00: [place] 20-25 mg 00 Medical per tablet Branch lisinopril- 2018-0 Yes Univer s hydrochloro 7-18 ity of thiazide 00:00: [place] 20-25 mg 00 Medical per tablet Branch lisinopril- 2018-0 Yes Univer s hydrochloro 7-18 ity of thiazide 00:00: [place] 20-25 mg 00 Medical per tablet Branch [...] 00 Medical per tablet Branch lisinopril- Yes Univcolt s hydrochloro 7-18 ity of thiazide 00:00: [place] 20-25 mg 00 Medical per tablet Branch lisinopril- Yes Univcolt s hydrochloro 7-18 ity of thiazide 00:00: [place] 20-25 mg 00 Medical per tablet Branch lisinopril- Yes Univer s hydrochloro 7-18 ity of thiazide 00:00: [place] 20-25 mg 00 Medical per tablet Branch lisinopril- Yes Univer s hydrochloro 7-18 ity of thiazide 00:00: [place] 20-25 mg 00 Medical per tablet Branch lisinopril- Yes Yelitza s hydrochloro 7-18 ity of thiazide 00:00: [place] 20-25 mg 00 Medical per tablet Branch lisinopril- Yes Univer s hydrochloro 7-18 ity of thiazide 00:00: [place] 20-25 mg 00 Medical per tablet Branch lisinopril- Yes Yelitza s hydrochloro 7-18 ity of thiazide 00:00: [place] 20-25 mg 00 Medical per tablet Branch Immunizations Ordered Filled Immunization Date Status Comments [facility] e Immunization Name Name SARS-COV-2 COVID-19 2020-08-09 Completed Unive rsity of PFIZER VACCINE 00:00:00 [facility] Branch SARS-COV-2 COVID-19 2020-08-09 Completed Unive rsity of PFIZER VACCINE 00:00:00 [place] [facility] SARS-COV-2 COVID-19 2020-08-09 Completed Unive rsity of PFIZER VACCINE 00:00:00 [place] [facility] SARS-COV-2 COVID-19 2020-08-09 Completed Unive rsity of PFIZER VACCINE 00:00:00 [place] [facility] SARS-COV-2 COVID-19 2020-08-09 Completed Unive rsity of PFIZER VACCINE 00:00:00 [place] [facility] SARS-COV-2 COVID-19 2020-08-09 Completed Unive rsity of PFIZER VACCINE 00:00:00 [place] [facility] SARS-COV-2 COVID-19 2020-07-19 Completed Unive rsity of PFIZER VACCINE 00:00:00 [place] [facility] SARS-COV-2 COVID-19 2020-07-19 Completed Unive rsity of PFIZER VACCINE 00:00:00 [place] [facility] SARS-COV-2 COVID-19 2020-07-19 Completed Unive rsity of PFIZER VACCINE 00:00:00 [place] [facility] SARS-COV-2 COVID-19 2020-07-19 Completed Unive rsity of PFIZER VACCINE 00:00:00 [place] [facility] SARS-COV-2 COVID-19 2020-07-19 Completed Unive rsity of PFIZER VACCINE 00:00:00 [place] [facility] SARS-COV-2 COVID-19 2020-07-19 Completed Unive rsity of PFIZER VACCINE 00:00:00 [place] [facility] Zoster Vaccine 2020-05-12 Completed University of Recombinant 00:00:00 [facility] Zoster Vaccine 2020-05-12 Completed University of Recombinant 00:00:00 [facility] Zoster Vaccine 2020-05-12 Completed University of Recombinant 00:00:00 [facility] Zoster Vaccine 2020-05-12 Completed University of Recombinant 00:00:00 [facility] Zoster Vaccine 2020-05-12 Completed University of Recombinant 00:00:00 [facility] Zoster Vaccine 2020-05-12 Completed University of Recombinant 00:00:00 [facility] Zoster Vaccine 2020-05-12 Completed University of Recombinant 00:00:00 [facility] Zoster Vaccine 2020-05-12 Completed University of Recombinant 00:00:00 [facility] Zoster Vaccine 2020-05-12 Completed University of Recombinant 00:00:00 [facility] Zoster Vaccine 2020-01-27 Completed University of Recombinant 00:00:00 [facility] Zoster Vaccine 2020-01-27 Completed University of Recombinant 00:00:00 [facility] Zoster Vaccine 2020-01-27 Completed University of Recombinant 00:00:00 [facility] Zoster Vaccine 2020-01-27 Completed University of Recombinant 00:00:00 [facility] Zoster Vaccine 2020-01-27 Completed University of Recombinant 00:00:00 [facility] Zoster Vaccine 2020-01-27 Completed University of Recombinant 00:00:00 [facility] Zoster Vaccine 2020-01-27 Completed University of Recombinant 00:00:00 [facility] Zoster Vaccine 2020-01-27 Completed University of Recombinant 00:00:00 [facility] Zoster Vaccine 2020-01-27 Completed University of Recombinant 00:00:00 [facility] Influenza Virus 2019-03-09 Completed Universit y of Vaccine Quad .5 mL 00:00:00 [facility] IM 6+ MO Branch Influenza Virus 2019-03-09 Completed Universit y of Vaccine [place] .5 mL 00:00:00 [place] [facility] IM 6+ MO Branch Influenza Virus 2019-03-09 Completed Universit y of Vaccine [place] .5 mL 00:00:00 [place] [facility] IM 6+ MO Branch Influenza Virus 2019-03-09 Completed Universit y of Vaccine [place] .5 mL 00:00:00 [facility] IM 6+ MO Branch Influenza Virus 2019-03-09 Completed Universit y of Vaccine [place] .5 mL 00:00:00 [facility] IM 6+ MO Branch Influenza Virus 2019-03-09 Completed Universit y of Vaccine [place] .5 mL 00:00:00 [place] Medical IM 6+ MO Branch Influenza Virus 2019-03-09 Completed Universit y of Vaccine [place] .5 mL 00:00:00 [place] [facility] IM 6+ MO Branch Influenza Virus 2019-03-09 Completed Universit y of Vaccine [place] .5 mL 00:00:00 [place] [facility] IM 6+ MO Branch Influenza Virus 2019-03-09 Completed Universit y of Vaccine [place] .5 mL 00:00:00 [place] [facility] IM 6+ MO Branch Pneumococcal 13 2018-02-21 Completed Universit y of Conjugate, PCV13 00:00:00 [facility] dical (Prevnar 13) Branch Pneumococcal 13 2018-02-21 Completed Universit y of Conjugate, PCV13 00:00:00 [facility] dical (Prevnar 13) Branch Pneumococcal 13 2018-02-21 Completed Universit y of Conjugate, PCV13 00:00:00 [place] Me dical (Prevnar 13) Branch Pneumococcal 13 2018-02-21 Completed Universit y of Conjugate, PCV13 00:00:00 [place] Me dical (Prevnar 13) Branch Pneumococcal 13 2018-02-21 Completed Universit y of Conjugate, PCV13 00:00:00 [place] Me dical (Prevnar 13) Branch Pneumococcal 13 2018-02-21 Completed Universit y of Conjugate, PCV13 00:00:00 [place] Me dical (Prevnar 13) Branch Pneumococcal 13 2018-02-21 Completed Universit y of Conjugate, PCV13 00:00:00 [place] Me dical (Prevnar 13) Branch Pneumococcal 13 2018-02-21 Completed Universit y of Conjugate, PCV13 00:00:00 [place] Me dical (Prevnar 13) Branch Pneumococcal 13 2018-02-21 Completed Universit y of Conjugate, PCV13 00:00:00 [place] Me dical (Prevnar 13) Branch Vital Signs Vital Name Observation Time Observation Value Comments Source Systolic blood 2020-07-15 17:23:00 127 mm[Hg] Univer sity of [facility] Diastolic blood 2020-07-15 17:23:00 87 mm[Hg] Unive rsity of [facility] Heart rate 2020-07-15 17:23:00 94 /min [facility] Body weight 2020-07-15 17:23:00 122.471 kg [facility] BMI 2020-07-15 17:23:00 37.66 kg/m2 [facility] Oxygen saturation in 2020-07-15 17:23:00 99 /min [facility] Arterial blood by [facility] Pulse oximetry Branch Systolic blood 2020-07-15 17:23:00 127 mm[Hg] Univer sity of [facility] Diastolic blood 2020-07-15 17:23:00 87 mm[Hg] Unive rsity of [facility] Heart rate 2020-07-15 17:23:00 94 /min [facility] Body weight 2020-07-15 17:23:00 122.471 kg [facility] BMI 2020-07-15 17:23:00 37.66 kg/m2 [facility] Oxygen saturation in 2020-07-15 17:23:00 99 /min [facility] Arterial blood by [facility] Pulse oximetry Branch Systolic blood 2019-10-30 16:24:00 138 mm[Hg] Univer sity of pressure [facility] Diastolic blood 2019-10-30 16:24:00 82 mm[Hg] Unive rsity of pressure [facility] [facility] Heart rate 2019-10-30 16:24:00 82 /min [facility] Body temperature 2019-10-30 16:24:[address] [facility] 2019-10-30 16:24:00 18 /min [facility] Body height 2019-10-30 16:24:00 180.3 cm [facility] Body weight 2019-10-30 16:24:00 122.585 kg [facility] BMI 2019-10-30 16:24:00 37.69 kg/m2 [facility] Systolic (mm Hg) 2022-07-03 16:14:00 Jovany rial Vivian Diastolic (mm Hg) 2022-07-03 16:14:00 Mem orial Juan Heart Rate 2022-07-03 16:14:00 [facility] Height 2022-07-03 16:14:00 5 [ft_i] [facility] Weight 2022-07-03 16:14:00 [facility] BMI Calculated 2022-07-03 16:14:00 Kady gandara Juan Systolic (mm Hg) 2022-05-22 14:53:00 Jovany rial Juan Diastolic (mm Hg) 2022-05-22 14:53:00 Mem orial Juan Heart Rate 2022-05-22 14:53:00 [facility] Height 2022-05-22 14:53:00 5 [ft_i] [facility] Weight 2022-05-22 14:53:00 [facility] BMI Calculated 2022-05-22 14:53:00 Kady Leighann Procedures Procedure Date / Time Performing Clinician Source Performed ASSIGNMENT OF BENEFITS 2019-10-30 16:02:32 Doctor Unassigned, No [facility] Hysterectomy [facility] Cholecystectomy<sup>1</ [facility] sup> Plastic surgery [facility] self-referral<sup>2</maier p> Encounters Start End Encounter Admission Attending Care Care Encounter Source Date/Time Date/Time Type Type Clinicians Facility Department ID 2022-10-31 2022-10-31 Outpatient MHIE MHIE [id number] [facility] 10:45:00 10:45:00 03 willy Martinez 2022-07-03 2022-07-04 Outpatient MHIE MNA [id number] [facility] 16:15:00 05:59:59 Neurology 02 willy Martinez 2022-07-03 2022-07-03 Outpatient DAVID OcasioMISCHER MHMISCHER [id number] 10:15:00 23:59:59 Dilan 02 Hussein 2022-07-03 2022-07-03 Outpatient MHIE MHIE [id number] [facility] 10:15:00 10:15:00 02 willy Martinez 2022-05-22 2022-05-23 Outpatient MHIE MNA [id number] [facility] 15:00:00 05:59:59 Neurology 01 willy Martinez 2022-05-22 2022-05-22 Outpatient DAVID OcasioMISCHER MHMISCHER [id number] 09:00:00 23:59:59 Dilan 01 Hussein 2022-05-22 2022-05-22 Outpatient MHIE MHIE [id number] [facility] 09:00:00 09:00:00 01 willy Juan 2022-04-05 2022-04-05 Ambulatory nullFlavo MNA [id number] [facility] 17:00:00 17:00:00 Pre-Reg r Neurology 00 willy Junior Juan 2022-04-05 2022-04-05 Outpatient MHIE MHIE [id number] [facility] 11:00:00 11:00:00 00 willy Juan 2022-04-05 2022-04-05 Outpatient DAVID OcasioMISCHER MHMISCHER [id number] 11:00:00 11:00:00 Dilan 00 Hussein 2021-12-19 2021-12-19 Outpatient Daniel FOLEY [facility] [id number] Univers 19:00:00 19:00:00 FIDE wilde [facility] 2021-10-102021-10-03 Inpatient Jurgen Campbell HCATO DAYS [id number] [facility] 13:30:00 05:55:00 [facility] 2021-10-03 2021-10-03 [facility] [id number] [facility] 05:55:00 05:55:00 [id number] [facility] 2021-04-11 2021-04-11 Refill López [facility] 1.2.840.114 [id number] Univers 00:00:00 00:00:00 Sidney PORTER [id number] it[id number] [phone] Ar dic[address] 2021-04-03 2021-04-03 Refill Doctor [facility] 1.2.840.114 [id number] Univers 00:00:00 00:00:00 Unassigned, [place] [id number] [id number] [phone] Ar dicct NAL [address] [place] [address] 2021-04-03 2021-04-03 Patient Doctor [facility] 1.2.840.114 [id number] Univers 00:00:00 00:00:00 Secure Msg Unassigned, [place] [id number] it[id number] [phone] Ar dicct NAL [address] [place] [address] 2021-04-03 2021-04-03 Refill Doctor [facility] 1.2.840.114 [id number] Univers 00:00:00 00:00:00 Unassigned, [place] [id number] [id number] [phone] Ar dicct NAL [address] [place] [address] 2020-10-07 2020-10-07 Telephone López [facility] 1.2.840.114 [id number] Univers 00:00:00 00:00:00 Sidney [place] [id number] [id number] [phone] [address] 2020-09-21 2020-09-21 [facility] 1.2.840.114 [id number] Univers 00:00:00 00:00:00 Sidney [place] [id number] [id number] [phone] [address] 2020-08-09 2020-08-09 Outpatient R SIOBHAN [facility] [id number] Univers 11:50:00 11:50:00 ZITA [facility] 2020-07-19 2020-07-19 Outpatient R SIOBHAN [facility] [id number] Univers 10:20:00 10:20:00 ZITA [facility] 2020-07-18 2020-07-18 Telephone [facility] 1.2.840.114 [id number] 00:00:00 00:00:00 Sidney Porter [id number] [place] [id number] Profess[place] [phone] [address] 2020-07-18 2020-07-18 Telephone López, [facility] 1.2.840.114 [id number] [facility] 00:00:00 00:00:00 Sidney [place] [id number] ity [facility] [id number] [phone] [address] 2020-07-15 2020-07-15 Office [facility] 1.2.840.114 [id number] 11:11:25 12:03:14 Visit Sidney Porter [id number] [place] [id number] Professio [phone] [address] 2020-07-15 2020-07-15 Office [facility] 1.2.840.114 [id number] [facility] 11:11:25 12:03:14 Visit Sidney Porter [id number] it[id number] [phone] [address] 2020-07-15 2020-07-15 Outpatient SIDNEY AYON [facility] [id number] Univers 11:20:00 11:20:00 SIDNEY DAWN [facility] 2020-07-08 2020-07-08 Outpatient Daniel DAWN SIDNEY [facility] [id number] Univers 15:00:00 15:00:00 SIDNEY DAWN shira [facility] 2020-05-24 2020-05-24 [facility] 1.2.840.114 [id number] Univers 00:00:00 00:00:00 Sidney [place] [id number] [id number] [phone] [address] 2020-05-20 2020-05-20 [facility] 1.2.840.114 [id number] Univers 00:00:00 00:00:00 Sidney Porter [id number] [id number] [phone] [address] 2020-05-18 2020-05-18 [facility] 1.2.840.114 [id number] Univers 00:00:00 00:00:00 Sidney Porter [id number] [id number] [phone] Ar dic[address] 2020-01-22 2020-01-22 Telephone López [facility] 1.2.840.114 [id number] Univers 00:00:00 00:00:00 Sidney Porter [id number] [id number] [phone] [address] 2019-10-30 2019-10-30 Office López [facility] 1.2.840.114 [id number] Univers 11:03:09 13:38:11 Visit Sidney Porter [id number] ity of [place] [id number] [phone] Ar dical count includes the [facility] 2019-10-30 2019-10-30 Outpatient R SIDNEY DAWN [facility] [id number] Univers 11:00:00 11:00:00 SIDNEY DAWN itshira [facility] 2019-10-30 2019-10-30 Orders Doctor FLETCHER 1.2.840.114 [id number] Univers 00:00:00 00:00:00 Only Unassigned, [place] [id number] ity of [place] [facility] [id number] Kelvin as [phone] [address] Results Test Description Test Time Test Comments Results Result Comments Source GLUBED 2021-10-03 06:38:00 Test Item Value Reference Range Interpretation Comme nts GLUBED (test code = GLUBED) 106 mg/dL 60-125 N
[2022-07-06 15:25] LABS: Absolute Lymphocytes (CBC) 1.7 K/uL (0.7-4.9); Hematocrit 33.6 % (36.0-45.0); Lymphocytes % 32.3 % (15.3-44.8); MCV 83.8 fL (80-100); MPV 8.1 fL (7.6-11.3); RBC Red Blood Cell Count 4.01 M/uL (3.86-4.86)
[2022-07-06 15:27] LABS: Protime INR 1.03
--- NOTE | 2022-07-06 15:32 | RAD REPORT ---
EXAM DESCRIPTION: RAD - Chest Single View - 07/06/2022 3:22 pm CLINICAL HISTORY: CHEST PAIN COMPARISON: <Comparisons> FINDINGS: Lines: None. Lungs: No evidence of edema or pneumonia. Pleural: No significant pleural effusions or pneumothorax. Cardiac: The heart size is within normal limits. Mediastinum: Within normal limits. Bones: No acute fractures. Other: None IMPRESSION: No acute cardiopulmonary disease.
[2022-07-06 15:47] LABS: Albumin 3.9 g/dL (3.4-5.0); Bilirubin Direct 0.1 mg/dL (0-0.2); Bilirubin Total 0.3 mg/dL (0.2-1.0); Potassium 3.5 mmol/L (3.5-5.1); Protein, Total 7.6 g/dL (6.4-8.2); Troponin High Sensitivity 3.6 pg/mL (<58.9)
[2022-07-06] MEDS ORDERED: NA CHLORIDE 0.9% 500 ML ONE (16:04)
[2022-07-06 16:10] LABS: SARS-COV-2 RT PCR NEGATIVE (NEGATIVE)
--- NOTE | 2022-07-06 18:55 | ER ---
Nurse's Notes [facility] Name: Cristina Cantrell Age: 62 yrs Sex: Female : 1960 Arrival Date: 07/06/2022 Time: 14:20 Bed 5 Private MD: Diagnosis: Chest pain, unspecified Presentation: 07/06 14:28 Chief complaint: Patient states: left jaw pain since before , thought it was iw her tooth , was seen by dentist in May , pain has gotten worse since last week, was seen by endodontologist and then PCP and was sent here , she is having some mild chest pain today. Coronavirus screen: At this time, the client does not indicate any symptoms associated with coronavirus-19. Ebola Screen: Patient negative for fever greater than or equal to 101.5 degrees Fahrenheit, and additional compatible Ebola Virus Disease symptoms Patient denies exposure to infectious person. Patient denies travel to an Ebola-affected area in the 21 days before illness onset. No symptoms or risks identified at this time. Initial Sepsis Screen: Does the patient meet any 2 criteria? No. Patient's initial sepsis screen is negative. Does the patient have a suspected source of infection? No. Patient's initial sepsis screen is negative. Risk Assessment: Do you want to hurt yourself or someone else? Patient reports no desire to harm self or others. Onset of symptoms. 14:28 Method Of Arrival: Ambulatory iw 14:28 Acuity: JOON 3 iw Historical: - Allergies: 15:18 No Known Allergies; hb - Home Meds: 15:18 Dexilant 30 mg Oral CpDB 1 cap once daily [Active]; lisinopril Oral [Active]; hb pantoprazole 40 mg Oral TbEC [Active]; Pristiq 50 mg Oral Tb24 [Active]; rosuvastatin 5 mg Oral tab [Active]; Rybelsus 7 mg Oral tab [Active]; Stool Softener Oral [Active]; Vitamin D Oral [Active]; - PMHx: 14:27 Diabetes - NIDDM; Hypertension; Migraines; iw - PSHx: 14:27 section; right foot; iw - Immunization history:: Adult Immunizations up to date. - Social history:: Smoking status: Patient denies any tobacco usage or history of. Screenin:19 [facility] ED Fall Risk Assessment (Adult) Score/Fall Risk Level 0 - 2 = Low Risk hb Oriented to surroundings, Maintained a safe environment, Educated pt \T\ family on fall prevention, incl call for assistance when getting out of bed. Abuse screen: Denies threats or abuse. Denies injuries from another. Nutritional screening: No deficits noted. Tuberculosis screening: No symptoms or risk factors identified. Assessment: 15:20 General: Appears in no apparent distress. Behavior is calm, cooperative. Pain: Pain hb currently is 3 out of 10 on a pain scale. Neuro: Level of Consciousness is awake, alert, obeys commands, Oriented to person, place, time, situation. Cardiovascular: Patient's skin is warm and dry. Rhythm is regular. Respiratory: Respiratory effort is even, unlabored, Respiratory pattern is regular, symmetrical. GI: No signs and/or symptoms were reported involving the gastrointestinal system. : No signs and/or symptoms were reported regarding the genitourinary system. EENT: No signs and/or symptoms were reported regarding the EENT system. Derm: Skin is pink, warm \T\ dry. Musculoskeletal: No signs and/or symptoms reported regarding the musculoskeletal system. 16:30 Reassessment: Patient appears in no apparent distress at this time. Patient and/or hb family updated on plan of care and expected duration. Pain level reassessed. Patient is alert, oriented x 3, equal unlabored respirations, skin warm/dry/pink. 17:33 Reassessment: Patient appears in no apparent distress at this time. Patient and/or hb family updated on plan of care and expected duration. Pain level reassessed. Patient is alert, oriented x 3, equal unlabored respirations, skin warm/dry/pink. 18:09 Reassessment: Patient appears in no apparent distress at this time. Patient and/or hb family updated on plan of care and expected duration. Pain level reassessed. Patient is alert, oriented x 3, equal unlabored respirations, skin warm/dry/pink. Vital Signs: 14:27 BP 134 / 74; Pulse 81; Resp 16; Temp 98.9(O); Pulse Ox 98% on R/A; iw 16:00 BP 104 / 68; Pulse 75; Resp 15; Pulse Ox 99% ; hb 17:00 BP 110 / 69; Pulse 74; Resp 15; Pulse Ox 99% ; Pain 5/10; hb 18:10 BP 106 / 67; Pulse 76; Resp 15; Pulse Ox 99% on R/A; hb ED Course: 14:20 Patient arrived in ED. rg4 14:31 Triage completed. iw 14:31 Arm band placed on. iw 14:33 Patient placed in an exam room, on a stretcher. ll1 14:38 Tony Wright PA is PHCP. m 14:38 Fili Kruse MD is Attending Physician. [facility] 14:52 EKG done, by ED staff. tm3 14:55 Kelsi Martinez, RN is Primary Nurse. hb 15:18 Inserted saline lock: 20 gauge in right antecubital area, using aseptic technique. hb Blood collected. 15:18 COVID-19/FLU A+B Sent. hb 15:19 Basic Metabolic Panel Sent. hb 15:19 CBC with Diff Sent. hb 15:19 LFT's Sent. hb 15:19 Magnesium Sent. hb 15:19 NT PRO-BNP Sent. hb 15:19 PT-INR Sent. hb 15:19 Troponin HS Sent. hb 15:20 Patient has correct armband on for positive identification. hb 15:23 XRAY Chest (1 view) In Process Unspecified. EDMS 19:02 No provider procedures requiring assistance completed. IV discontinued, intact, hb bleeding controlled, No redness/swelling at site. Administered Medications: 16:04 Drug: NS 0.9% 500 ml Route: IV; Rate: bolus; Site: right antecubital; hb 16:50 Follow up: Response: No adverse reaction; IV Status: Completed infusion; IV Intake: hb 500ml Medication: 15:20 VIS not applicable for this client. hb Intake: 16:50 IV: 500ml; Total: 500ml. hb Outcome: 18:54 Discharge ordered by . m 19:02 Discharged to home ambulatory. hb 19:02 Condition: stable 19:02 Discharge instructions given to patient, Instructed on discharge instructions, follow up and referral plans. medication usage, Demonstrated understanding of instructions, follow-up care, medications, Prescriptions given X 19:04 Patient left the ED. hb Signatures: Dispatcher [employer] EDMS William Romano tm3 Tony Wright PA PA jmm Williams, Irene, RN RN Kelsi Martinez, KELLEY Zakiya Ferrell rg4 Christa Crowell RN RN ll1 Corrections: (The following items were deleted from the chart) 14:28 14:27 Resp 16bpm; Pulse Ox 98% RA; Temp 98.9F Oral; iw iw
--- NOTE | 2022-07-06 18:55 | EDPHYS ---
Physician Documentation [facility] Name: Cristina Cantrell Age: 62 yrs Sex: Female : 1960 Arrival Date: 07/06/2022 Time: 14:20 Bed 5 Private MD: ED Physician Fili Kruse HPI: 07/06 14:38 This 62 yrs old Female presents to ER via Ambulatory with complaints of Jaw Pain. jmm 14:38 The patient or guardian reports chest pain that is located primarily in the substernal [facility] area. Onset: gradually, 1 day(s) ago. This is a 62-year-old female with history of diabetes mellitus, hypertension, migraines and presents emerged department with complaints of left-sided jaw pain beginning approximately 2 months ago. Patient became concerned when she developed some substernal tightness that she describes it yesterday. Advised by daughter to take aspirin. Denies any shortness of breath, fever, cough.. Historical: - Allergies: 15:18 No Known Allergies; hb - Home Meds: 15:18 Dexilant 30 mg Oral CpDB 1 cap once daily [Active]; lisinopril Oral [Active]; hb pantoprazole 40 mg Oral TbEC [Active]; Pristiq 50 mg Oral Tb24 [Active]; rosuvastatin 5 mg Oral tab [Active]; Rybelsus 7 mg Oral tab [Active]; Stool Softener Oral [Active]; Vitamin D Oral [Active]; - PMHx: 14:27 Diabetes - NIDDM; Hypertension; Migraines; iw - PSHx: 14:27 section; right foot; iw - Immunization history:: Adult Immunizations up to date. - Social history:: Smoking status: Patient denies any tobacco usage or history of. ROS: 14:38 Constitutional: Negative for fever, chills, and weight loss. jmm 14:38 Cardiovascular: Positive for chest pain. 14:38 All other systems are negative. Exam: 14:38 Constitutional: This is a well developed, well nourished patient who is awake, alert, jmm and in no acute distress. Head/Face: atraumatic. Eyes: EOMI, no conjunctival erythema appreciated ENT: Moist Mucus Membranes Neck: Trachea midline, Supple Chest/axilla: Normal chest wall appearance and motion. Cardiovascular: Regular rate and rhythm. No edema appreciated Respiratory: Normal respirations, no respiratory distress appreciated Abdomen/GI: Non distended Back: Normal ROM Skin: General appearance color normal MS/ Extremity: Moves all extremities, no obvious deformities appreciated, no edema noted to the lower extremities Neuro: Awake and alert Psych: Behavior is normal, Mood is normal, Patient is cooperative and pleasant Vital Signs: 14:27 BP 134 / 74; Pulse 81; Resp 16; Temp 98.9(O); Pulse Ox 98% on R/A; iw 16:00 BP 104 / 68; Pulse 75; Resp 15; Pulse Ox 99% ; hb 17:00 BP 110 / 69; Pulse 74; Resp 15; Pulse Ox 99% ; Pain 5/10; hb 18:10 BP 106 / 67; Pulse 76; Resp 15; Pulse Ox 99% on R/A; hb MDM: 14:38 Patient medically screened. [facility] 18:53 Data reviewed: vital signs, nurses notes. Consideration of Admission/Observation. I raza considered the following discharge prescriptions or medication management in the emergency department Medications were administered in the Emergency Department. See MAR. Independent interpretation of the following test(s) in the Emergency Department X-Ray: My interpretation is No infiltrate appreciated. Care significantly affected by the following chronic conditions: Diabetes, Hypertension. Counseling: I had a detailed discussion with the patient and/or guardian regarding: the historical points, exam findings, and any diagnostic results supporting the discharge/admit diagnosis, lab results, radiology results, the need for outpatient follow up, the need for further work-up and treatment in the hospital. Refusal of service: The patient/guardian displays adequate decision making capability and despite a detailed discussion of alternatives, benefits, risks, and consequences refuses: Admission to the hospital for further work-up and treatment. ED course: Patient has a preference to repeat troponin instead of full observation. ED course: Patient will follow-up with cardiology on Saturday. 07/06 15:03 Order name: Basic Metabolic Panel; Complete Time: 15:52 [facility] 07/06 15: Order name: CBC with Diff; Complete Time: 15:41 [facility] 07/06 15: Order name: LFT's; Complete Time: 15:52 [facility] 07/06 15:03 Order name: Magnesium; Complete Time: 15:52 [facility] 07/06 15:03 Order name: NT PRO-BNP; Complete Time: 15:52 [facility] 07/06 15:03 Order name: PT-INR; Complete Time: 15:30 [facility] 07/06 15:03 Order name: Troponin HS; Complete Time: 15:52 [facility] 07/06 15:03 Order name: XRAY Chest (1 view); Complete Time: 15:41 [facility] 07/06 15:03 Order name: EKG; Complete Time: 15:04 [facility] 07/06 15:03 Order name: Cardiac monitoring; Complete Time: 15:19 [facility] 07/06 15:03 Order name: EKG - Nurse/Tech; Complete Time: 15:19 [facility] 07/06 15:03 Order name: COVID-19/FLU A+B; Complete Time: 16:16 [facility] 07/06 16:23 Order name: Troponin High Sensitivity: repeat at 3 hour isiah; Complete Time: 18:50 [facility] 07/06 15:03 Order name: IV Saline Lock; Complete Time: 15:19 [facility] 07/06 15:03 Order name: Labs collected and sent; Complete Time: 15:19 [facility] 07/06 15:03 Order name: O2 Per Protocol; Complete Time: 15:19 [facility] 07/06 15:03 Order name: O2 Sat Monitoring; Complete Time: 15:19 [facility] Administered Medications: 16:04 Drug: NS 0.9% 500 ml Route: IV; Rate: bolus; Site: right antecubital; hb 16:50 Follow up: Response: No adverse reaction; IV Status: Completed infusion; IV Intake: hb 500ml Disposition: 19:40 Co-signature as Attending Physician, Fili Kruse MD I reviewed the patient's care rt provided by the Advanced Practice Provider and agree with the diagnosis and treatment plan. Disposition Summary: 07/06/22 18:54 Discharge Ordered Location: Home [facility] Condition: Stable [facility] Diagnosis - Chest pain, unspecified jm Followup: jmm - With: Private Physician - When: 1 - 2 days - Reason: Recheck today's complaints, Continuance of care, Re-evaluation by your physician Discharge Instructions: - Discharge Summary Sheet jmm - Nonspecific Chest Pain, Adult jmm Forms: - Medication Reconciliation Form [facility] - Thank You Letter jmm - Antibiotic Education jmm - Prescription Opioid Use [facility] Signatures: Dispatcher [employer] Tony Salcedo PA PA jmm Williams, Irene, RN RN Kelsi Tariq, RN RN Fili Lanier MD MD rt
[2022-07-06 19:08] VITALS: TEMP 98.9
[2022-07-06 19:10] VITALS: O2SAT 99
[2022-07-06 19:12] VITALS: BP 106/67
== END 2022-07-06 19:04 | disposition home or self-care (01) ==
LOC: ER 14:18
DX: R07.89 Other chest pain (principal); I10 Essential (primary) hypertension; E11.9 Type 2 diabetes mellitus without complications; Z20.822 Contact with and (suspected) exposure to COVID-19
CPT/HCPCS: 85025; 80048; 36415; 83735; 85610; 80076; 84484 ×2; 83880; 0240U; 71045; 96360; 99284; J7040; 93005

== ENCOUNTER → 2023-09-19 | Day surgery (SDC) | payer BC ==
[2023-09-17 16:04] LABS: Absolute Eosinophils 0.1 K/uL (0-0.5); Absolute Lymphocytes (CBC) 1.9 K/uL (0.7-4.9); Absolute Monocytes 0.4 K/uL (0.1-1.3); Absolute Neutrophil 4.4 K/uL (1.8-8.0); Basophils % 0.5 % (0-1.3); Eosinophils % 1.2 % (0-4.4); Hematocrit 33.2 % (36.0-45.0); Hemoglobin 11.7 g/dL (12.0-15.0); Lymphocytes % 27.3 % (15.3-44.8); MCHC 35.4 g/dL (32.0-36.0); MCV 84.7 fL (80-100); MPV 8.4 fL (7.6-11.3); Monocytes % 6.6 % (3.3-12.3); Neutrophils % 64.4 % (41.7-73.7); Platelets 219 thou/uL (152-406); RBC Red Blood Cell Count 3.92 M/uL (3.86-4.86); Red Cell Distribution Width 13.7 % (12.1-15.2)
[2023-09-17 16:18] LABS: Anion Gap 7.6 mEq/L (5.0-15.0); Potassium 3.6 mEq/L (3.5-5.1)
[~2023-09-19] MED LIST: EPINEPHRINE 1 MG/ML VIAL ONE; FENTANYL CITR 100 MCG/2 ML ONE; LIDOCAINE 1% MPF 5 ML VIAL ONE; ONDANSETRON 4 MG/2 ML VIAL ONE; propofoL 200 MG/20 ML VIAL IV ONE
[2023-09-19] MEDS: NA CHLORIDE 0.9% 1,000 ML ONE (08:20)
[2023-09-19] MEDS: LIDOCAINE HCL/EPINEPHRINE 20 ML MDV ONE (10:01)
[2023-09-19] MEDS: KETOROLAC 30 MG/ML INJ ONE (10:07)
[2023-09-19] MEDS: MORPHINE 4 MG/ML SYR ONE (10:07)
[2023-09-19] MEDS: ONDANSETRON 4 MG/2 ML VIAL ONE (11:10)
[2023-09-19 12:08] VITALS: BP 126/61; TEMP 97.6; O2SAT 96
--- NOTE | 2023-09-23 17:36 | OP ---
Date of Procedure: 09/19/2023 Surgeon: ARNIE BAIRES Primary Care Physician: Unknown. Preoperative Diagnoses: 1.Obstructive sleep apnea. 2.Ankyloglossia. Postoperative Diagnoses: 1.Obstructive sleep apnea. 2.Ankyloglossia. Body mass index between 30.0 and 39.9. Procedures: 1.Drug-induced sleep endoscopy under propofol sedation. 2.Lingual frenulectomy. Anesthesia: General. Propofol sedation was given via IV. I also infiltrated approximately 5 mL of 1% lidocaine with 1:100,000 epinephrine at the lingual frenulectomy excision site. Estimated Blood Loss: Scant, less than 2 mL. Specimens: None. Findings: Almost complete anterior/posterior velopharyngeal closure with minimal lateral pharyngeal approximation and no evidence of concentric collapse. 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 Complications: None. Disposition: Stable. The patient tolerated the procedure well. Indication For Procedure: The patient is a pleasant 63-year-old female who [facility] chronic obstructive sleep apnea in which she could not tolerate the CPAP mask. She had decent compliance with the new mask, but she would experience variable headaches and only obtain at most 4 hours of sleep nightly with the mask. She is still not rested when she awakens in the morning and she is fatigued throughout the day. Also on examination, patient had a moderate tethered lingua l frenulum which is tethered to the floor mouth, this could hinder the tongue mobility if we were to do an Inspire implant in the future. Thus, these were indications to bring the patient to operative suite for the above-mentioned procedure. She understood. All questions were answered. Risks versus benefits and complications were explained in detail and a consent form was signed which was placed i n the chart. Description Of Procedure: The patient was transferred from the preoperative holding area to the oper ative suite by Department of Anesthesia, placed on the operating room table supine, sedated with prop ofol in the normal fashion. The patient was given a maximum dose of 100 mg of propofol. Once patien t was in an unconscious state confirmed with calling the patient's name and touching her upper eyelid s, a flexible laryngoscope was introduced into the right nasal cavity and advanced just above the inf erior turbinates back to the velopharynx. I was able to obtain excellent visualization and recording was obtained. The patient had almost complete anterior/posterior closure with no concentric collaps e, whatsoever and very little lateral collapse. The patient had at least 90% anterior/posterior tanisha apse. The scope was held in place for roughly 3 to 5 minutes and then once I was confident we had ap propriate evidence for proceeding with Inspire implant, the scope was completely removed. Patient to lerated it well. Next, my attention was placed to the lingual frenulum, which was excised utilizing curved iris scissors. A large wedge of mucosa was excised with the scissors and brown Adson forceps. Hemostasis was achieved with eye cautery. I then reapproximated the mucosal edges with 4-0 Vicryl in a continuous running locking fashion. I then infiltrated approximately 5 mL of 1% lidocaine with 1:100,000 epinephrine at the excision site. The patient was then transferred back to Department of A nesthesia in stable condition. A frenulectomy was performed by alternating mask anesthesia with the procedure. She will be discharged to home on [id number] analgesia medication and will follow up soon to schedule for her Inspire implant pro husesin. JULY/AZAEL Voice ID: [id number] Report ID: [id number]
== END ==
LOC: OR 07:42
PROVIDERS: ATTEND Otolaryngology Facial Plastic Surgery
PROC: 0CB7XZZ Excision of Tongue, External Approach (ICD-10-PCS; principal; 2023-09-19 09:00)
PROC: 0CJY8ZZ Inspection of Mouth and Throat, Via Natural or Artificial Opening Endoscopic (ICD-10-PCS; 2023-09-19 09:00)
DX: G47.33 Obstructive sleep apnea (adult) (pediatric) (principal); Q38.1 Ankyloglossia; I10 Essential (primary) hypertension; K21.9 Gastro-esophageal reflux disease without esophagitis; E11.9 Type 2 diabetes mellitus without complications; E66.9 Obesity, unspecified; Z68.34 Body mass index [BMI] 34.0-34.9, adult
CPT/HCPCS: 93005; 85025; 80048; 36415; 82947 ×2; 41115; 42975; J2704; J2001; J3010; J2405 ×2; J7030; J0171

== ENCOUNTER 2024-03-08 14:17 | Emergency (ER) | payer BC ==
[2024-03-08 14:45] LABS: PT Prothrombin Time 12.1 SECONDS (9.4-12.5); Protime INR 1.08
[2024-03-08 14:52] LABS: Absolute Eosinophils 0.2 K/uL (0-0.5); Absolute Lymphocytes (CBC) 1.8 K/uL (0.7-4.9); Absolute Monocytes 0.4 K/uL (0.1-1.3); Absolute Neutrophil 3.8 K/uL (1.8-8.0); Basophils % 0.7 % (0-1.3); Eosinophils % 2.8 % (0-4.4); Hematocrit 36.9 % (36.0-45.0); Hemoglobin 12.8 g/dL (12.0-15.0); Lymphocytes % 29.1 % (15.3-44.8); MCH 29.2 pg (27.0-35.0); MCHC 34.7 g/dL (32.0-36.0); MCV 84.2 fL (80-100); MPV 8.5 fL (7.6-11.3); Monocytes % 7.1 % (3.3-12.3); Neutrophils % 60.3 % (41.7-73.7); Nucleated Red Blood Cells % 0.1 % (0-0); Platelets 213 thou/uL (152-406); RBC Red Blood Cell Count 4.38 M/uL (3.86-4.86); Red Cell Distribution Width 14.3 % (12.1-15.2)
[2024-03-08 15:00] LABS: Anion Gap 8.8 mEq/L (5.0-15.0); Potassium 3.8 mEq/L (3.5-5.1); Troponin High Sensitivity 3.3 pg/mL (<58.9)
--- NOTE | 2024-03-08 15:39 | RAD REPORT ---
Procedure: Chest Single View HISTORY: Shortness of breath COMPARISON: 2022 FINDINGS: The left base is hazy The remainder of the lungs appear clear of acute infiltrate. No significant pleural effusion noted. The heart is normal size. IMPRESSION: Left base is hazy which could be secondary to overlying soft tissue or infiltrate. PA and lateral olivia st series recommended
--- NOTE | 2024-03-08 16:30 | ER ---
Nurse's Notes [facility] Name: Cristina Cantrell Age: 64 yrs Sex: Female : 1960 Arrival Date: 03/08/2024 Time: 14:17 Bed 4 Private MD: Diagnosis: Unspecified bacterial pneumonia Presentation: 03/08 14:23 Chief complaint: Patient states: Cough for 3 weeks since having covid. SOB and R sided ll1 trunk pain started night. No fever. Coronavirus screen: Client denies travel out of the [place] in the last 14 days. cough unrelated to allergies, difficulty breathing, muscle pain, Client presents with at least one sign or symptom that may indicate coronavirus-19. Standard/surgical mask placed on the client. Ebola Screen: Patient denies travel to an Ebola-affected area in the 21 days before illness onset. Initial Sepsis Screen: Does the patient meet any 2 criteria? No. Patient's initial sepsis screen is negative. Does the patient have a suspected source of infection? No. Patient's initial sepsis screen is negative. Risk Assessment: Do you want to hurt yourself or someone else? Patient reports no desire to harm self or others. Onset of symptoms was February 18, 2024. 14:23 Method Of Arrival: Ambulatory ll1 14:23 Acuity: JOON 3 ll1 Triage Assessment: 14:23 General: Appears uncomfortable, Behavior is calm, cooperative, appropriate for age. ll1 Pain: Complains of pain in R trunk Quality of pain is described as aching, Pain began. Respiratory: Reports shortness of breath cough that is pain with respiration. 14:44 Respiratory: Onset: The symptoms/episode began/occurred gradually, the patient has mild ap3 shortness of breath. Historical: - Allergies: 14:34 No Known Allergies; ll1 - PMHx: 14:34 Diabetes - NIDDM; Hypertension; Migraines; Hypercholesterolemia; ll1 - PSHx: 14:34 section; right foot; partial hysterectomy; ll1 - Immunization history:: Adult Immunizations. - Infectious Disease History:: Denies. - Social history:: Smoking status: Patient denies any tobacco usage or history of. Screenin:44 [facility] ED Fall Risk Assessment (Adult) History of falling in the last 3 months, ap3 including since admission No falls in past 3 months (0 pts) Confusion or Disorientation No (0 pts) Intoxicated or Sedated No (0 pts) Impaired Gait No (0 pts) Mobility Assist Device Used No (0 pt) Altered Elimination No (0 pt) Score/Fall Risk Level 0 - 2 = Low Risk Oriented to surroundings, Maintained a safe environment, Educated pt \T\ family on fall prevention, incl call for assistance when getting out of bed, Assessed \T\ reinforced patient's understanding of fall precautions, Hourly rounding (assess needs \T\ fall precautionary measures) done, Used ambulatory aids as needed (educated on \T\ assisted with), Used gait belt as appropriate. Abuse screen: Denies threats or abuse. Nutritional screening: No deficits noted. Tuberculosis screening: No symptoms or risk factors identified. Assessment: 14:43 General: Appears in no apparent distress. Behavior is calm, cooperative, appropriate ap3 for age. Pain: Denies pain. Neuro: Level of Consciousness is awake, alert, obeys commands, Oriented to person, place, time, situation, Appropriate for age. Cardiovascular: Patient's skin is warm and dry. Respiratory: Reports shortness of breath Airway is patent Respiratory effort is even, unlabored. 16:39 Cardiovascular: Rhythm is regular. Respiratory: Breath sounds are clear. ap3 Vital Signs: 14:23 BP 145 / 90; Pulse 83; Resp 17; Temp 98.2; Pulse Ox 96% on R/A; Weight 102.97 kg; ll1 Height 5 ft. 11 in. ; Pain 3/10; 15:29 BP 109 / 75; Pulse 87; Resp 17; Pulse Ox 98% ; ap3 16:21 BP 114 / 78; Pulse 83; Resp 18; Pulse Ox 94% ; ap3 14:23 Body Mass Index 31.66 (102.97 kg, 180.34 cm) ll1 14:23 Pain Scale: Adult ll1 ED Course: 14:19 Patient arrived in ED. ra3 14:19 Cornell Peña MD is Attending Physician. ec2 14:22 Christa Crowell, KELLEY is Primary Nurse. ll1 14:22 Arm band placed on Patient placed in an exam room, on a stretcher. ll1 14:36 Triage completed. ll1 14:43 EKG done, by ED staff, reviewed by Cornell Peña MD. Initial lab(s) drawn, by me, sent ap3 to lab. Inserted saline lock: 20 gauge in right antecubital area, using aseptic technique. Blood collected. 14:56 Placed in gown. Bed in low position. Call light in reach. Side rails up X 1. Provided mb9 Education on: press call light if needing anything. Client placed on continuous cardiac and pulse oximetry monitoring. NIBP monitoring applied. patient monitor on. 14:57 No provider procedures requiring assistance completed. mb9 15:30 XRAY Chest (1 view) In Process Unspecified. EDMS 16:39 IV discontinued, intact, bleeding controlled, No redness/swelling at site. Pressure ap3 dressing applied. Administered Medications: 16:38 Drug: Amoxicillin-Clavulanate PO 875 mg PO once Route: PO; ap3 16:40 Follow up: Response: Medication administered at discharge. ap3 Medication: 14:56 VIS not applicable for this client. mb9 Outcome: 16:30 Discharge ordered by . ec2 16:39 Discharged to home ambulatory, with family, ap3 16:39 Condition: good 16:39 Discharge instructions given to patient, Instructed on discharge instructions, follow up and referral plans. medication usage, Demonstrated understanding of instructions, follow-up care, medications, Prescriptions given X 1, 16:40 Patient left the ED. ap3 Signatures: Dispatcher [employer] Kristin Vazquez RN RN ap3 Christa Crowell RN RN ll1 Sonya, Sanjuanita Mendez RN RN mb9 Cornell Peña MD MD ec2 Valerie Sneed ra3
--- NOTE | 2024-03-08 16:30 | EDPHYS ---
Physician Documentation [facility] Name: Cristina Cantrell Age: 64 yrs Sex: Female : 1960 Arrival Date: 03/08/2024 Time: 14:17 Bed 4 Private MD: ED Physician Cornell Peña HPI: 03/08 15:17 This 64 yrs old Female presents to ER via Ambulatory with complaints of ec2 Shortness Of Breath - sent by next level. 15:17 Patient arrives today for evaluation of shortness of breath. Patient with history of ec2 recent COVID diagnosis, reports has been having shortness of breath since then. States that she was over at urgent care and they had ordered an abnormal chest x-ray and wanted her evaluated in the ED. Reports otherwise no new concerns, no history of CHF. No cardiac disease. History of hypertension as well as diabetes . Historical: - Allergies: 14:34 No Known Allergies; ll1 - PMHx: 14:34 Diabetes - NIDDM; Hypertension; Migraines; Hypercholesterolemia; ll1 - PSHx: 14:34 section; right foot; partial hysterectomy; ll1 - Immunization history:: Adult Immunizations. - Infectious Disease History:: Denies. - Social history:: Smoking status: Patient denies any tobacco usage or history of. ROS: 15:17 Constitutional: as per hpi ec2 Exam: 15:17 Constitutional: GEN: NAD Head: atraumatic Eyes: EOMI Ears: External ears are ec2 normal. CV: regular rate LUNGS: no respiratory distress ABD: non-distended SKIN: no evidence of rashes MSK: no evidence of trauma Vital Signs: 14:23 BP 145 / 90; Pulse 83; Resp 17; Temp 98.2; Pulse Ox 96% on R/A; Weight 102.97 kg; ll1 Height 5 ft. 11 in. ; Pain 3/10; 15:29 BP 109 / 75; Pulse 87; Resp 17; Pulse Ox 98% ; ap3 16:21 BP 114 / 78; Pulse 83; Resp 18; Pulse Ox 94% ; ap3 14:23 Body Mass Index 31.66 (102.97 kg, 180.34 cm) ll1 14:23 Pain Scale: Adult ll1 MDM: 14:43 Data reviewed: vital signs. ED course: EKG independently reviewed and interpreted by ec2 me, shows normal sinus rhythm, rate of 89, no acute ST segment elevations, intervals are nonactionable. . 15:17 ED course: Patient arrives today for evaluation of shortness of breath. Examination ec2 remarkable for well-appearing nontoxic individuals otherwise in no acute distress. EKG as above. Will obtain chest x-ray as well as lab work. Differential includes processes such as pneumonia, ACS, electrolyte disturbances, arrhythmia.. 16:29 ED course: Left lung with questionable opacity. Patient remains with respiratory ec2 symptoms, will start on antibiotics and have the patient follow-up with PCP. Return precautions given. Patient discharged home.. 16:30 Patient medically screened. ec2 03/08 14:25 Order name: Basic Metabolic Panel; Complete Time: 16:12 ec2 03/08 14:25 Order name: CBC with Diff; Complete Time: 16:12 ec2 03/08 14:25 Order name: NT PRO-BNP; Complete Time: 16:12 ec2 03/08 14:25 Order name: PT-INR; Complete Time: 16:12 ec2 03/08 14:25 Order name: Troponin HS; Complete Time: 16:12 ec2 03/08 14:25 Order name: XRAY Chest (1 view); Complete Time: 16:12 ec2 03/08 14:25 Order name: EKG; Complete Time: 14:25 ec2 03/08 14:25 Order name: Cardiac monitoring; Complete Time: 14:46 ec2 03/08 14:25 Order name: EKG - Nurse/Tech; Complete Time: 14:46 ec2 03/08 14:25 Order name: IV Saline Lock; Complete Time: 14:46 ec2 03/08 14:25 Order name: Labs collected and sent; Complete Time: 14:46 ec2 03/08 14:25 Order name: O2 Per Protocol; Complete Time: 14:46 ec2 03/08 14:25 Order name: O2 Sat Monitoring; Complete Time: 14:46 ec2 Administered Medications: 16:38 Drug: Amoxicillin-Clavulanate PO 875 mg PO once Route: PO; ap3 16:40 Follow up: Response: Medication administered at discharge. ap3 Disposition Summary: 03/08/24 16:30 Discharge Ordered Notes: Location: Home ec2 Condition: Stable ec2 Diagnosis - Unspecified bacterial pneumonia ec2 Followup: ec2 - With: Private Physician - When: - Reason: Re-evaluation by your physician Discharge Instructions: - Discharge Summary Sheet ec2 - Community-Acquired Pneumonia, Adult ec2 Forms: - Medication Reconciliation Form ec2 - Antibiotic Education ec2 - Prescription Opioid Use ec2 - Patient Portal Instructions ec2 - Leadership Thank You Letter ec2 Prescriptions: - Augmentin 875-125 mg Oral Tablet - take 1 tablet ORAL route every 12 hours for 10 days; 20 tablet; Refills: 0, ec2 Product Selection Permitted Signatures: Dispatcher [employer] Kristin Vazquez RN RN ap3 Christa Crowell RN RN ll1 Cornell Peña MD MD ec2
[2024-03-08] MEDS ORDERED: AMOX/K CLAV 875 MG TAB ONE (16:32)
[2024-03-08 18:27] VITALS: TEMP 98.2
[2024-03-08 18:31] VITALS: BP 114/78; O2SAT 94
== END 2024-03-08 16:40 | disposition home or self-care (01) ==
LOC: ER 14:17
DX: J15.9 Unspecified bacterial pneumonia (principal); E11.9 Type 2 diabetes mellitus without complications; I10 Essential (primary) hypertension
CPT/HCPCS: 36415; 71045; 80048; 83880; 84484; 85025; 85610; 93005

== ENCOUNTER 2024-10-15 16:25 | Emergency (ER) | payer BC ==
--- OUTSIDE RECORDS SUMMARY | 2024-10-15 16:29 | XMS REPORT | Continuity of Care Document ---
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 Name Role Phone PCP, PATIENT DOES NOT HAVE A Primary Care Physic leticia Unavailable Lele Chand Attending Clinician Unavailable Jeffrey Rosas Attending Clinician Unavailable IVONNE ESCAMILLA Attending Clinician Unavailab IVONNE Livingston Attending Clinician Unavailab Ivonne Livingston DO Attending Clinician [phone] [id number] Attending Clinician Unavailab FIDE Norton Attending Clinician Unavailable Jurgen Mix Attending Clinician Unavailable Sidney Dawn MD Attending Clinician [phone] Doctor Unassigned, Varina Attending Clinician U ZITA Yadav Attending Clinician Unavailable SIDNEY DAWN Attending Clinician Unavail able SIDNEY DAWN Attending Clinician Unavail able IVONNE ESCAMILLA Admitting Clinician Unavailab delon [id number] Admitting Clinician Unavailab delon KNOW, DOES_NOT Admitting Clinician Unavailable Jurgen Mix Admitting Clinician Unavailable Payers Payer Name Policy Type Policy Number Effective Date Expirati on Date Source [place] [id number] 2022 00:[place] [id number] 2022 00:00:00 [employer]WORK [id number] 2018 00:00:00 Problems Condition Name Condition Details Condition Category Status Onset Date Resolution Date Last Treatment Date Treating Clinician Comments Source Abscess of abdominal wall Abscess of Abdominal Wall Problem Active 3-07 00:00: 00 [facility] Disorder of tendon of right wrist region Disorder of Tendon of Right Wrist Region Problem Active 2023-05 2-10 00:00: 00 [facility] Inconclusi ve mammograph y finding Inconclusi ve Mammograph y Finding Problem Active 4-02 00:00: 00 [facility] Constipati on Constipati on Problem Active 3-06 00:00: 00 [facility] Atrophic vaginitis Atrophic Vaginitis Problem Active 3-06 00:00: 00 [facility] Urgent desire to urinate Urgent Desire to Urinate Problem Active 3-06 00:00: 00 [facility] Reduced libido Reduced Libido Problem Active 3-06 00:00: 00 [facility] Mass of left breast Mass of Left Breast Problem Active 3-06 00:00: 00 [facility] Diabetes mellitus Diabetes Mellitus Problem Active 3-06 00:00: 00 [facility] Anxiety Anxiety Problem Active 3-06 00:00: 00 [facility] Insomnia Insomnia Problem Active 3-06 00:00: 00 [facility] Lateral epicondyli tis of right humerus Lateral Epicondyli tis of Right Humerus Problem Active 2020-05 00:00: 00 [facility] Radial styloid tenosynovi tis Radial Styloid Tenosynovi tis Problem Active 2020-05 00:00: 00 [facility] Hypertensi ve disorder, systemic arterial (disorder) Hypertensi ve disorder, systemic arterial (disorder) Active Problem 09/27/2023 [facility] Problem Active 2023-09-27 18:18:13 [facility] [place] Migraine (disorder) Migraine (disorder) Active Problem 09/27/2023 [facility] [place] Problem Active 2023-09-27 18:18:13 Tereso Martinez Diabetes mellitus type 2 (disorder) Diabetes mellitus type 2 (disorder) Active Problem 09/27/2023 [facility] Problem Active 2023-09-27 18:18:13 Tereso Martinez Hyperlipid emia (disorder) Hyperlipid emia (disorder) Active Problem 09/27/2023 [facility] [place] Problem Active 2023-09-27 18:18:13 Tereso Martinez Allergies, Adverse Reactions, Alerts Allergy Name Allergy Type Status Severity Reaction(s) Onset Date Inactive Date Treating Clinician Comments Source No Known Allergie s DA Active U 06-29 00:00: 00 [facility] No Known Medicati on Allergie s No Known Medicati on Allergie s Active Tereso Martinez NO KNOWN ALLERGIE S Drug Class Active [facility] Social History Social Habit Start Date Stop Date Quantity Comments Source Sexual orientation U [facility] History of tobacco use Passive smoker [facility] Exposure to SARS-CoV-2 (event) Not sure [facility] Tobacco use and exposure 2024-04-27 00:00:00 2024-04-27 00:00:00 Smokeless tobacco non-user [facility] History of Social function 2024-04-27 00:00:00 2024-04-27 00:00:00 [facility] Social History 2022-05-22 15:50:38 2022-05-22 15:50:38 [facility] Juan Smoking Status Start Date Stop Date Source Unknown if ever smoked [facility] Never smoked tobacco [facility] Medications Ordered Medication Name Filled Medication Name Start Date Stop Date Current Medication? Ordering Clinician Indication Dosage Frequency Signature (SIG) Comments Components Source tirzepatide 10 mg/0.5 mL subcutaneou s injection pen 2023-05 08:54: 37 Yes inject under the skin weekly. 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, Height, 120, kg, 05/22/22 9:20:00 [employer]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, 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 Tereso Martinez Dexilant 60 mg oral delayed release capsule 2021-05 15:05: 00 Yes TAKE 1 CAPSULE BY MOUTH DAILY 30 MINUTES BEFORE EATING BREAKFAST Tyrondany willy Juan desvenlafax ine 50 mg oral tablet, extended release 2021-05 15:05: 00 Yes TAKE 1 TABLET BY MOUTH EVERY MORNING Tereso Martinez Probiotic Formula oral capsule 2021-05 15:04: 00 Yes 1 cap, PO, Daily, 0 Refill(s) Tereso Fabianann Vitamin D3 2021-05 15:04: 00 Yes 0 Refill(s) Tereso Fabianann vitamin E 2021-05 15:04: 00 Yes PO, 0 Refill(s) Tereso Martinez 1 oral capsule 2021-05 15:04: 00 Yes 0 Refill(s) Tereso Fabianann non-formula ry 2021-05 15:04: 00 Yes stool softner, Refill(s) 0 Tyrondany willy Martinez lasmiditan 100 mg Tab 10-18 00:00: 00 04-27 00:00 :00 No [id number] 1{tbl} Take 1 tablet by mouth as needed (At the onset of a headache, no more than one tablet in 24 hours). [facility] isometh-dic hloral-acet aminophn 65-100-325 mg capsule 10-18 00:00: 04-27 00:00 :00 No [id number] 1{capsu le} Take 1 capsule by mouth every 4 (four) hours as needed for Migraine. [facility] cetirizine (ZYRTEC) 10 mg tablet 07-15 17:36: 43 07-15 00:00 :00 No 10mg Take 10 mg by mouth daily. [facility] ZOLMITRIPTA N 5 mg disintegrat ing tablet 2019-05 00:00: 00 10-18 00:00 :00 No [id number] DISSOLVE 1 TABLET BY MOUTH NEEDED MIGRAINE [facility] AIMOVIG AUTOINJECTO R 140 mg/mL AtIn 2019-05 00:00: 00 07-15 00:00 :00 No [id number] INJECT 140 MG SUBCUTANEO US ONCE EVERY MONTH [facility] SUMAtriptan 6 mg/0.5 mL injection 02-04 00:00: 00 10-18 00:00 :00 No Inject 0.5 ml under the skin at the onset of headache. If no relief you can inject another 0.5 ml in 4hours with a max of 2 injections per day. [facility] ZOLMitripta n 5 mg disintegrat ing tablet 10-29 00:00: 05-24 00:00 :00 No [id number] 5mg Take 1 tablet by mouth as needed for Migraine. [facility] erenumab-ao oe (AIMOVIG AUTOINJECTO R) 140 mg/mL AtIn 10-29 00:00: 00 05-23 00:00 :00 No [id number] 140mg inject 140 mg under the skin once every month. [facility] butalbital- aspirin-caf feine (FIORINAL) 50-325-40 mg per capsule 11-11 00:00: 00 04-27 00:00 :00 No 1{capsu le} Take 1 capsule by mouth every 4 (four) hours as needed for Pain. [facility] cetirizine (ZYRTEC) 10 mg tablet 2017-05 21:59: 11 Yes 10mg Take 10 mg by mouth daily. [facility] isometh-dic hloral-acet aminophn 65-100-325 mg capsule 2017-05 00:00: 00 10-29 00:00 :00 No 1{capsu le} Take 1 capsule by mouth every 4 (four) hours as needed for Migraine. [facility] doxycycline 40 mg capsule 01-22 00:00: 00 07-15 00:00 :00 No [facility] metFORMIN 500 mg tablet 01-18 00:00: 00 07-15 00:00 :00 No [facility] TRINTELLIX 20 mg Tab 12-27 00:00: 00 07-15 00:00 :00 No [facility] esomeprazol e 40 mg capsule 12-20 00:00: 00 Yes [facility] benzonatate 100 mg capsule TAKE 1 CAPSULE BY MOUTH EVERY 4-6 HOURS benzonatate 100 mg capsule TAKE 1 CAPSULE BY MOUTH EVERY 4-6 HOURS No benzonatat e 100 mg capsule TAKE 1 CAPSULE BY MOUTH EVERY 4-6 HOURS [facility] benzonatate 200 mg capsule TAKE 1 CAPSULE BY MOUTH EVERY 4 TO 6 HOURS benzonatate 200 mg capsule TAKE 1 CAPSULE BY MOUTH EVERY 4 TO 6 HOURS No benzonatat e 200 mg capsule TAKE 1 CAPSULE BY MOUTH EVERY 4 TO 6 HOURS [facility] cefadroxil 500 mg capsule TAKE 1 CAPSULE BY MOUTH TWICE DAILY cefadroxil 500 mg capsule TAKE 1 CAPSULE BY MOUTH TWICE DAILY No cefadroxil 500 mg capsule TAKE 1 CAPSULE BY MOUTH TWICE DAILY [facility] desvenlafax ine succinate ER 50 mg tablet,exte nded release 24 hr TAKE 1 TABLET BY MOUTH EVERY MORNING desvenlafax ine succinate ER 50 mg tablet,exte nded release 24 hr TAKE 1 TABLET BY MOUTH EVERY MORNING No desvenlafa xine succinate ER 50 mg tablet,ext ended release 24 hr TAKE 1 TABLET BY MOUTH EVERY MORNING [facility] cannabidiol (CBD) oral solution Take by oral route. cannabidiol (CBD) oral solution Take by oral route. No cannabidio l (CBD) oral solution Take by oral route. [facility] dexamethaso ne 4 mg tablet TAKE 1 TABLET BY MOUTH DAILY dexamethaso ne 4 mg tablet TAKE 1 TABLET BY MOUTH DAILY No dexamethas one 4 mg tablet TAKE 1 TABLET BY MOUTH DAILY [facility] dexlansopra zole 60 mg capsule,bip hase delayed release TAKE 1 CAPSULE BY MOUTH TAKE 1 CAPSULE BY MOUTH EVERY DAY 30 MINUTES BEFORE EATING BREAKFAST dexlansopra zole 60 mg capsule,bip hase delayed release TAKE 1 CAPSULE BY MOUTH TAKE 1 CAPSULE BY MOUTH EVERY DAY 30 MINUTES BEFORE EATING BREAKFAST No dexlansopr azole 60 mg capsule,bi phase delayed release TAKE 1 CAPSULE BY MOUTH TAKE 1 CAPSULE BY MOUTH EVERY DAY 30 MINUTES BEFORE EATING BREAKFAST [facility] estradiol 0.01% (0.1 mg/gram) vaginal cream INSERT 0.5 GRAM VAGINALLY 3 TIMES A WEEK AT BEDTIME estradiol 0.01% (0.1 mg/gram) vaginal cream INSERT 0.5 GRAM VAGINALLY 3 TIMES A WEEK AT BEDTIME No .5g Q56H estradiol 0.01% (0.1 mg/gram) vaginal cream INSERT 0.5 GRAM VAGINALLY 3 TIMES A WEEK AT BEDTIME [facility] doxycycline hyclate 100 mg tablet TAKE 1 TABLET BY MOUTH EVERY DAY WITH FOOD. DO NOT LAY DOWN FOR 2 HOURS AFTER TAKING doxycycline hyclate 100 mg tablet TAKE 1 TABLET BY MOUTH EVERY DAY WITH FOOD. DO NOT LAY DOWN FOR 2 HOURS AFTER TAKING No doxycyclin e hyclate 100 mg tablet TAKE 1 TABLET BY MOUTH EVERY DAY WITH FOOD. DO NOT LAY DOWN FOR 2 HOURS AFTER TAKING [facility] No [facility] estradiol 0.01% (0.1 mg/gram) vaginal cream INSERT 0.5 GRAM VAGINALLY 3 TIMES A WEEK AT BEDTIME estradiol 0.01% (0.1 mg/gram) vaginal cream INSERT 0.5 GRAM VAGINALLY 3 TIMES A WEEK AT BEDTIME No estradiol 0.01% (0.1 mg/gram) vaginal cream INSERT 0.5 GRAM VAGINALLY 3 TIMES A WEEK AT BEDTIME [facility] Probiotic Probiotic No Probiotic [facility] levofloxaci n 500 mg tablet TAKE 1 TABLET BY MOUTH EVERY DAY FOR 7 DAYS levofloxaci n 500 mg tablet TAKE 1 TABLET BY MOUTH EVERY DAY FOR 7 DAYS No levofloxac in 500 mg tablet TAKE 1 TABLET BY MOUTH EVERY DAY FOR 7 DAYS [facility] lisinopril 10 mg tablet TAKE 1 TABLET BY MOUTH EVERY DAY lisinopril 10 mg tablet TAKE 1 TABLET BY MOUTH EVERY DAY No lisinopril 10 mg tablet TAKE 1 TABLET BY MOUTH EVERY DAY [facility] Stool Softener 100 mg capsule Take 1 capsule every day by oral route. Stool Softener 100 mg capsule Take 1 capsule every day by oral route. No 1capsul e(s) Q1D Stool Softener 100 mg capsule Take 1 capsule every day by oral route. [facility] lisinopril 20 mg-hydrochl orothiazide 25 mg tablet TAKE 1 TABLET BY MOUTH DAILY lisinopril 20 mg-hydrochl orothiazide 25 mg tablet TAKE 1 TABLET BY MOUTH DAILY No lisinopril 20 mg-hydroch lorothiazi de 25 mg tablet TAKE 1 TABLET BY MOUTH DAILY [facility] Vitamin D3 Vitamin D3 No Vitamin D3 [facility] lorazepam 0.5 mg tablet TAKE 1 TABLET BY MOUTH DAILY DIRECTED NEEDED FOR ANXIETY lorazepam 0.5 mg tablet TAKE 1 TABLET BY MOUTH DAILY DIRECTED NEEDED FOR ANXIETY No lorazepam 0.5 mg tablet TAKE 1 TABLET BY MOUTH DAILY DIRECTED NEEDED FOR ANXIETY [facility] Bactrim DS 800 mg-160 mg tablet Take 1 tablet twice a day by oral route for 7 days. Bactrim DS 800 mg-160 mg tablet Take 1 tablet twice a day by oral route for 7 days. No 1 BID Bactrim DS 800 mg-160 mg tablet Take 1 tablet twice a day by oral route for 7 days. [facility] losartan 50 mg tablet TAKE 1 TABLET BY MOUTH DAILY losartan 50 mg tablet TAKE 1 TABLET BY MOUTH DAILY No losartan 50 mg tablet TAKE 1 TABLET BY MOUTH DAILY [facility] estradiol 10 mcg vaginal tablet Insert 1 tablet twice a week by vaginal route for 90 days. estradiol 10 mcg vaginal tablet Insert 1 tablet twice a week by vaginal route for 90 days. No 1 Q3.5D estradiol 10 mcg vaginal tablet Insert 1 tablet twice a week by vaginal route for 90 days. [facility] methylpredn isolone 4 mg tablets in a dose pack FOLLOW PACKAGE DIRECTIONS methylpredn isolone 4 mg tablets in a dose pack FOLLOW PACKAGE DIRECTIONS No methylpred nisolone 4 mg tablets in a dose pack FOLLOW PACKAGE DIRECTIONS [facility] lorazepam 0.5 mg tablet TAKE 1 TABLET BY MOUTH DAILY DIRECTED NEEDED FOR ANXIETY lorazepam 0.5 mg tablet TAKE 1 TABLET BY MOUTH DAILY DIRECTED NEEDED FOR ANXIETY No lorazepam 0.5 mg tablet TAKE 1 TABLET BY MOUTH DAILY DIRECTED NEEDED FOR ANXIETY [facility] Mounjaro 10 mg/0.5 mL subcutaneou s pen injector ADMINISTER 10 MG UNDER THE SKIN WEEKLY Mounjaro 10 mg/0.5 mL subcutaneou s pen injector ADMINISTER 10 MG UNDER THE SKIN WEEKLY No Mounjaro 10 mg/0.5 mL subcutaneo us pen injector ADMINISTER 10 MG UNDER THE SKIN WEEKLY [facility] olmesartan 20 mg-hydrochl orothiazide 12.5 mg tablet TAKE 1/2 TABLET BY MOUTH DAILY olmesartan 20 mg-hydrochl orothiazide 12.5 mg tablet TAKE 1/2 TABLET BY MOUTH DAILY No olmesartan 20 mg-hydroch lorothiazi de 12.5 mg tablet TAKE 1/2 TABLET BY MOUTH DAILY [facility] Mounjaro 5 mg/0.5 mL subcutaneou s pen injector ADMINISTER 5 MG UNDER THE SKIN WEEKLY Mounjaro 5 mg/0.5 mL subcutaneou s pen injector ADMINISTER 5 MG UNDER THE SKIN WEEKLY No Mounjaro 5 mg/0.5 mL subcutaneo us pen injector ADMINISTER 5 MG UNDER THE SKIN WEEKLY [facility] RectaSmooth e 5 % topical cream APPLY RECTALLY TO THE AFFECTED AREA THREE TIMES DAILY FOR 1 WEEK RectaSmooth e 5 % topical cream APPLY RECTALLY TO THE AFFECTED AREA THREE TIMES DAILY FOR 1 WEEK No RectaSmoot he 5 % topical cream APPLY RECTALLY TO THE AFFECTED AREA THREE TIMES DAILY FOR 1 WEEK [facility] Mounjaro 7.5 mg/0.5 mL subcutaneou s pen injector INJECT 7.5 MG UNDER THE SKIN ONE DAY A WEEK Mounjaro 7.5 mg/0.5 mL subcutaneou s pen injector INJECT 7.5 MG UNDER THE SKIN ONE DAY A WEEK No Mounjaro 7.5 mg/0.5 mL subcutaneo us pen injector INJECT 7.5 MG UNDER THE SKIN ONE DAY A WEEK [facility] ondansetron HCl 4 mg tablet TAKE 1 TABLET BY MOUTH EVERY 4 TO 6 HOURS NEEDED ondansetron HCl 4 mg tablet TAKE 1 TABLET BY MOUTH EVERY 4 TO 6 HOURS NEEDED No ondansetro n HCl 4 mg tablet TAKE 1 TABLET BY MOUTH EVERY 4 TO 6 HOURS NEEDED [facility] Ozempic 0.25 mg or 0.5 mg (2 mg/1.5 mL) subcutaneou s pen injector INJECT 0.5MG SUBCUTANEOU SLY WEEKLY Ozempic 0.25 mg or 0.5 mg (2 mg/1.5 mL) subcutaneou s pen injector INJECT 0.5MG SUBCUTANEOU SLY WEEKLY No Ozempic 0.25 mg or 0.5 mg (2 mg/1.5 mL) subcutaneo us pen injector INJECT 0.5MG SUBCUTANEO USLY WEEKLY [facility] Ozempic 0.25 mg or 0.5 mg (2 mg/3 mL) subcutaneou s pen injector INJECT 0.5 MG UNDER THE SKIN WEEKLY Ozempic 0.25 mg or 0.5 mg (2 mg/3 mL) subcutaneou s pen injector INJECT 0.5 MG UNDER THE SKIN WEEKLY No Ozempic 0.25 mg or 0.5 mg (2 mg/3 mL) subcutaneo us pen injector INJECT 0.5 MG UNDER THE SKIN WEEKLY [facility] Paxlovid 300 mg (150 mg x 2)-100 mg tablets in a dose pack TK 2 NIRMATRELVI R TS AND 1 RITONAVIR T TOGETHER PO TWICE DAILY FOR 5 DAYS Paxlovid 300 mg (150 mg x 2)-100 mg tablets in a dose pack TK 2 NIRMATRELVI R TS AND 1 RITONAVIR T TOGETHER PO TWICE DAILY FOR 5 DAYS No Paxlovid 300 mg (150 mg x 2)-100 mg tablets in a dose pack TK 2 NIRMATRELV IR TS AND 1 RITONAVIR T TOGETHER PO TWICE DAILY FOR 5 DAYS [facility] prednisone 20 mg tablet TAKE 1 TABLET BY MOUTH TWICE DAILY FOR 3 DAYS prednisone 20 mg tablet TAKE 1 TABLET BY MOUTH TWICE DAILY FOR 3 DAYS No prednisone 20 mg tablet TAKE 1 TABLET BY MOUTH TWICE DAILY FOR 3 DAYS [facility] promethazin e 25 mg tablet TAKE 1 TABLET BY MOUTH EVERY 8 HOURS NEEDED FOR HEADACHE promethazin e 25 mg tablet TAKE 1 TABLET BY MOUTH EVERY 8 HOURS NEEDED FOR HEADACHE No promethazi ne 25 mg tablet TAKE 1 TABLET BY MOUTH EVERY 8 HOURS NEEDED FOR HEADACHE [facility] RectaSmooth e 5 % topical cream APPLY RECTALLY TO THE AFFECTED AREA THREE TIMES DAILY FOR 1 WEEK RectaSmooth e 5 % topical cream APPLY RECTALLY TO THE AFFECTED AREA THREE TIMES DAILY FOR 1 WEEK No RectaSmoot he 5 % topical cream APPLY RECTALLY TO THE AFFECTED AREA THREE TIMES DAILY FOR 1 WEEK [facility] Reyvow 100 mg tablet TAKE 1 TABLET BY MOUTH DAILY AT THE ONSET OF HEADACHE. NO MORE THAN 1 TABLET IN 24 HOURS Reyvow 100 mg tablet TAKE 1 TABLET BY MOUTH DAILY AT THE ONSET OF HEADACHE. NO MORE THAN 1 TABLET IN 24 HOURS No Reyvow 100 mg tablet TAKE 1 TABLET BY MOUTH DAILY AT THE ONSET OF HEADACHE. NO MORE THAN 1 TABLET IN 24 HOURS [facility] rizatriptan 10 mg disintegrat ing tablet DISSOLVE 1 TABLET ON THE TONGUE AT ONSET NEEDED FOR MIGRAINE. MAXIMUM DAILY DOSE IS 30 MG IN 24 HOUR PERIOD. MAY REPEAT IN 2 HOURS NEEDED rizatriptan 10 mg disintegrat ing tablet DISSOLVE 1 TABLET ON THE TONGUE AT ONSET NEEDED FOR MIGRAINE. MAXIMUM DAILY DOSE IS 30 MG IN 24 HOUR PERIOD. MAY REPEAT IN 2 HOURS NEEDED No rizatripta n 10 mg disintegra ting tablet DISSOLVE 1 TABLET ON THE TONGUE AT ONSET NEEDED FOR MIGRAINE. MAXIMUM DAILY DOSE IS 30 MG IN 24 HOUR PERIOD. MAY REPEAT IN 2 HOURS NEEDED [facility] rosuvastati n 5 mg tablet TAKE 1 TABLET BY MOUTH EVERY DAY rosuvastati n 5 mg tablet TAKE 1 TABLET BY MOUTH EVERY DAY No rosuvastat in 5 mg tablet TAKE 1 TABLET BY MOUTH EVERY DAY [facility] Rybelsus 14 mg tablet TAKE 1 TABLET BY MOUTH EVERY DAY 30 MINUTES BEFORE FIRST FOOD OR BEVERAGE OR MEDICINE OF THE DAY Rybelsus 14 mg tablet TAKE 1 TABLET BY MOUTH EVERY DAY 30 MINUTES BEFORE FIRST FOOD OR BEVERAGE OR MEDICINE OF THE DAY No Rybelsus 14 mg tablet TAKE 1 TABLET BY MOUTH EVERY DAY 30 MINUTES BEFORE FIRST FOOD OR BEVERAGE OR MEDICINE OF THE DAY [facility] Rybelsus 7 mg tablet TAKE 1 TABLET BY MOUTH EVERY MORNING. TAKE 30 MINUTES BEFORE EATING WITH NO MORE THEN 4 OZ OF WATER Rybelsus 7 mg tablet TAKE 1 TABLET BY MOUTH EVERY MORNING. TAKE 30 MINUTES BEFORE EATING WITH NO MORE THEN 4 OZ OF WATER No Rybelsus 7 mg tablet TAKE 1 TABLET BY MOUTH EVERY MORNING. TAKE 30 MINUTES BEFORE EATING WITH NO MORE THEN 4 OZ OF WATER [facility] Accu-Chek Guide test strips USE TO CHECK BLOOD SUGAR TWICE DAILY Accu-Chek Guide test strips USE TO CHECK BLOOD SUGAR TWICE DAILY No Accu-Chek Guide test strips USE TO CHECK BLOOD SUGAR TWICE DAILY [facility] acetaminoph en 300 mg-codeine 30 mg tablet TAKE 1 TABLET BY MOUTH EVERY 6 HOURS acetaminoph en 300 mg-codeine 30 mg tablet TAKE 1 TABLET BY MOUTH EVERY 6 HOURS No acetaminop hen 300 mg-codeine 30 mg tablet TAKE 1 TABLET BY MOUTH EVERY 6 HOURS [facility] albuterol sulfate HFA 90 mcg/actuati on aerosol inhaler INHALE 2 PUFFS BY MOUTH EVERY 4 HOURS NEEDED albuterol sulfate HFA 90 mcg/actuati on aerosol inhaler INHALE 2 PUFFS BY MOUTH EVERY 4 HOURS NEEDED No albuterol sulfate HFA 90 mcg/actuat ion aerosol inhaler INHALE 2 PUFFS BY MOUTH EVERY 4 HOURS NEEDED [facility] amoxicillin 875 mg tablet TAKE 1 TABLET BY MOUTH TWICE DAILY amoxicillin 875 mg tablet TAKE 1 TABLET BY MOUTH TWICE DAILY No amoxicilli n 875 mg tablet TAKE 1 TABLET BY MOUTH TWICE DAILY [facility] amoxicillin 875 mg-potassiu m clavulanate 125 mg tablet TAKE 1 TABLET BY MOUTH EVERY 12 HOURS FOR 10 DAYS amoxicillin 875 mg-potassiu m clavulanate 125 mg tablet TAKE 1 TABLET BY MOUTH EVERY 12 HOURS FOR 10 DAYS No amoxicilli n 875 mg-potroddyi um clavulanat e 125 mg tablet TAKE 1 TABLET BY MOUTH EVERY 12 HOURS FOR 10 DAYS [facility] azithromyci n 250 mg tablet TAKE 2 TABLETS BY MOUTH FOR 1 DAY THEN TAKE 1 TABLET BY MOUTH DAILY FOR 4 DAYS azithromyci n 250 mg tablet TAKE 2 TABLETS BY MOUTH FOR 1 DAY THEN TAKE 1 TABLET BY MOUTH DAILY FOR 4 DAYS No azithromyc in 250 mg tablet TAKE 2 TABLETS BY MOUTH FOR 1 DAY THEN TAKE 1 TABLET BY MOUTH DAILY FOR 4 DAYS [facility] azithromyci n 500 mg tablet TAKE 1 TABLET BY MOUTH DAILY UNTIL ALL TAKEN azithromyci n 500 mg tablet TAKE 1 TABLET BY MOUTH DAILY UNTIL ALL TAKEN No azithromyc in 500 mg tablet TAKE 1 TABLET BY MOUTH DAILY UNTIL ALL TAKEN [facility] Immunizations Ordered Immunization Name Filled Immunization Name Date Status Comments Source Influenza Virus Vaccine Quad .5 mL IM 6+ MO (FLUZONE/FLULAVAL/F LUARIX) 2024-03-24 00:00:00 Completed [facility] SARS-COV-2 COVID-19 PFIZER VACCINE 2020-08-09 00:00:00 Completed [facility] SARS-COV-2 COVID-19 PFIZER VACCINE 2020-08-09 00:00:00 Completed [facility] SARS-COV-2 COVID-19 PFIZER VACCINE 2020-08-09 00:00:00 Completed [facility] SARS-COV-2 COVID-19 PFIZER VACCINE 2020-08-09 00:00:00 Completed [facility] SARS-COV-2 COVID-19 PFIZER VACCINE 2020-08-09 00:00:00 Completed [facility] SARS-COV-2 COVID-19 PFIZER VACCINE 2020-08-09 00:00:00 Completed [facility] SARS-COV-2 COVID-19 PFIZER VACCINE 2020-08-09 00:00:00 Completed [facility] SARS-COV-2 COVID-19 PFIZER VACCINE 2020-07-19 00:00:00 Completed [facility] SARS-COV-2 COVID-19 PFIZER VACCINE 2020-07-19 00:00:00 Completed [facility] SARS-COV-2 COVID-19 PFIZER VACCINE 2020-07-19 00:00:00 Completed [facility] SARS-COV-2 COVID-19 PFIZER VACCINE 2020-07-19 00:00:00 Completed [facility] SARS-COV-2 COVID-19 PFIZER VACCINE 2020-07-19 00:00:00 Completed [facility] SARS-COV-2 COVID-19 PFIZER VACCINE 2020-07-19 00:00:00 Completed [facility] SARS-COV-2 COVID-19 PFIZER VACCINE 2020-07-19 00:00:00 Completed [facility] Zoster Vaccine Recombinant 2020-05-12 00:00:00 Completed [facility] Zoster Vaccine Recombinant 2020-05-12 00:00:00 [facility] [facility] Vaccine Recombinant 2020-05-12 00:00:00 Completed [facility] Zoster Vaccine Recombinant 2020-05-12 00:00:00 Completed [facility] Zoster Vaccine Recombinant 2020-05-12 00:00:00 Completed [facility] Zoster Vaccine Recombinant 2020-05-12 00:00:00 Completed [facility] Zoster Vaccine Recombinant 2020-05-12 00:00:00 Completed [facility] Zoster Vaccine Recombinant 2020-05-12 00:00:00 Completed [facility] Zoster Vaccine Recombinant 2020-05-12 00:00:00 Completed Zoster Vaccine Recombinant 2020-01-27 00:00:00 Completed [facility] Zoster Vaccine Recombinant 2020-01-27 00:00:00 Completed [facility] Zoster Vaccine Recombinant 2020-01-27 00:00:00 Completed [facility] Zoster Vaccine Recombinant 2020-01-27 00:00:00 Completed [facility] Zoster Vaccine Recombinant 2020-01-27 00:00:00 Completed [facility] Zoster Vaccine Recombinant 2020-01-27 00:00:00 Completed [facility] Zoster Vaccine Recombinant 2020-01-27 00:00:00 Completed [facility] Zoster Vaccine Recombinant 2020-01-27 00:00:00 Completed [facility] Zoster Vaccine Recombinant 2020-01-27 00:00:00 Completed Influenza Virus Vaccine Quad .5 mL IM 6+ MO 2019-03-09 00:00:00 Completed [facility] Influenza Virus Vaccine Quad .5 mL IM 6+ MO 2019-03-09 00:00:00 Completed [facility] Influenza Virus Vaccine Quad .5 mL IM 6+ MO 2019-03-09 00:00:00 Completed [facility] Influenza Virus Vaccine Quad .5 mL IM 6+ MO 2019-03-09 00:00:00 Completed [facility] Influenza Virus Vaccine Quad .5 mL IM 6+ MO 2019-03-09 00:00:00 Completed [facility] Influenza Virus Vaccine Quad .5 mL IM 6+ MO 2019-03-09 00:00:00 Completed [facility] Influenza Virus Vaccine Quad .5 mL IM 6+ MO 2019-03-09 00:00:00 Completed [facility] Influenza Virus Vaccine Quad .5 mL IM 6+ MO 2019-03-09 00:00:00 Completed [facility] Influenza Virus Vaccine Quad .5 mL IM 6+ MO (FLUZONE/FLULAVAL/F LUARIX) 2019-03-09 00:00:00 Completed [facility] Pneumococcal 13 Conjugate, PCV13 (Prevnar 13) 2018-02-21 00:00:00 Completed [facility] Pneumococcal 13 Conjugate, PCV13 (Prevnar 13) 2018-02-21 00:00:00 Completed [facility] Pneumococcal 13 Conjugate, PCV13 (Prevnar 13) 2018-02-21 00:00:00 Completed [facility] Pneumococcal 13 Conjugate, PCV13 (Prevnar 13) 2018-02-21 00:00:00 Completed [facility] Pneumococcal 13 Conjugate, PCV13 (Prevnar 13) 2018-02-21 00:00:00 Completed [facility] Pneumococcal 13 Conjugate, PCV13 (Prevnar 13) 2018-02-21 00:00:00 Completed [facility] Pneumococcal 13 Conjugate, PCV13 (Prevnar 13) 2018-02-21 00:00:00 Completed [facility] Pneumococcal 13 Conjugate, PCV13 (Prevnar 13) 2018-02-21 00:00:00 Completed [facility] Pneumococcal 13 Conjugate, PCV13 (Prevnar 13) 2018-02-21 00:00:00 Completed Influenza Virus Vaccine Quad .5 mL IM 6+ MO (FLUZONE/FLULAVAL/F LUARIX) Unknown Completed [facility] Pneumococcal 13 Conjugate, PCV13 (Prevnar 13) Unknown Completed [facility] Zoster Vaccine Recombinant Unknown Completed [facility] SARS-COV-2 COVID-19 PFIZER VACCINE Unknown Completed [facility] Vital Signs Vital Name Observation Time Observation Value Comments S ource BP Systolic 2024-07-31 00:00:00 120 mm[Hg] [facility] Body Weight 2024-07-31 00:00:00 227 [lb_av] [facility] BMI (Body Mass Index) 2024-07-31 00:00:00 31.7 kg/m2 [facility] BP Diastolic 2024-07-31 00:00:00 76 mm[Hg] [facility] Height 2024-07-31 00:00:00 71 [in_i] [facility] Height 2024-05-05 00:00:00 71 [in_i] [facility] BMI (Body Mass Index) 2024-05-05 00:00:00 38.4 kg/m2 [facility] Body Weight 2024-05-05 00:00:00 275 [lb_av] [facility] Systolic blood pressure 2024-04-27 14:38:00 115 mm[Hg] [facility] Diastolic blood pressure 2024-04-27 14:38:00 75 mm[Hg] [facility] Heart rate 2024-04-27 14:38:00 75 /min [facility] 2024-04-27 14:38:00 19 /min [facility] Body height 2024-04-27 14:38:00 180.3 cm [facility] Body weight 2024-04-27 14:38:00 102.513 kg [facility] BMI 2024-04-27 14:38:00 31.52 kg/m2 [facility] Oxygen saturation in Arterial blood by Pulse oximetry 2024-04-27 14:38:00 97 /min [facility] BMI (Body Mass Index) 2023-07-31 00:00:00 35.3 kg/m2 [facility] Height 2023-07-31 00:00:00 71 [in_i] [facility] BP Systolic 2023-07-31 00:00:00 134 mm[Hg] [facility] Weight 2023-07-31 00:00:00 253 [lb_av] [facility] BP Diastolic 2023-07-31 00:00:00 76 mm[Hg] [facility] Systolic blood pressure 2020-07-15 17:23:00 127 mm[Hg] [facility] Diastolic blood pressure 2020-07-15 17:23:00 87 mm[Hg] [facility] Heart rate 2020-07-15 17:23:00 94 /min [facility] Body weight 2020-07-15 17:23:00 122.471 kg [facility] BMI 2020-07-15 17:23:00 37.66 kg/m2 [facility] Oxygen saturation in Arterial blood by Pulse oximetry 2020-07-15 17:23:00 99 /min [facility] Systolic blood pressure 2020-07-15 17:23:00 127 mm[Hg] [facility] Diastolic blood pressure 2020-07-15 17:23:00 87 mm[Hg] [facility] Heart rate 2020-07-15 17:23:00 94 /min [facility] Body weight 2020-07-15 17:23:00 122.471 kg [facility] BMI 2020-07-15 17:23:00 37.66 kg/m2 [facility] Oxygen saturation in Arterial blood by Pulse oximetry 2020-07-15 17:23:00 99 /min [facility] Systolic blood pressure 2019-10-30 16:24:00 138 mm[Hg] [facility] Diastolic blood pressure 2019-10-30 16:24:00 82 mm[Hg] [facility] Heart rate 2019-10-30 16:24:00 82 /min [facility] Body temperature 2019-10-30 16:24:00 37 Jania [facility] Respiratory rate 2019-10-30 16:24:00 18 /min [facility] Body height 2019-10-30 16:24:00 180.3 cm [facility] Body weight 2019-10-30 16:24:00 122.585 kg [facility] BMI 2019-10-30 16:24:00 37.69 kg/m2 [facility] Systolic (mm Hg) 2023-09-24 15:59:00 [facility] Diastolic (mm Hg) 2023-09-24 15:59:00 [facility] Heart Rate 2023-09-24 15:59:00 [facility] Height 2023-09-24 15:59:00 5 [ft_i] [facility] Weight 2023-09-24 15:59:00 [facility] BMI Calculated 2023-09-24 15:59:00 [facility] Systolic (mm Hg) 2022-07-03 16:14:00 [facility] Diastolic (mm Hg) 2022-07-03 16:14:00 [facility] Heart Rate 2022-07-03 16:14:00 [facility] Height 2022-07-03 16:14:00 5 [ft_i] [facility] Weight 2022-07-03 16:14:00 [facility] BMI Calculated 2022-07-03 16:14:00 [facility] Systolic (mm Hg) 2022-05-22 14:53:00 [facility] Diastolic (mm Hg) 2022-05-22 14:53:00 [facility] Heart Rate 2022-05-22 14:53:00 [facility] Height 2022-05-22 14:53:00 5 [ft_i] [facility] Weight 2022-05-22 14:53:00 [facility] BMI Calculated 2022-05-22 14:53:00 [facility] Procedures Procedure Date / Time Performed Performing Clinician Source MAMMO, diagnostic, digital, bilateral 2024-07-31 00:00:00 [facility] Medical DEXA 2023-07-31 00:00:00 Payton Valverde edical MAMMO, diagnostic, digital, bilateral 2023-07-31 00:00:00 [facility] Medical US, breast, unilateral 2023-07-31 00:00:00 [facility] Medical Abdominoplasty 2022-02-24 00:00:00 [facility] Medical Release for De Quervain's Tenosynovitis of Hand 2021-09-24 00:00:00 [facility] Medical ASSIGNMENT OF BENEFITS 2019-10-30 16:02:32 Docto r Unassigned, Varina [facility] Cholecystectomy 2016-06-27 [facility] 2015-05-27 00:00:00 [facility] Medical Repair of Anal Sphincter 2014-05-27 00:00:[facility] 2010-05-27 00:00:00 [facility] Partial Hysterectomy 1996-08-08 00:00:00 [facility] Medical Hysterectomy [facility] Cholecystectomy<sup>1</sup > [facility] Plastic surgery self-referral<sup>2</sup> [facility] Encounters Start Date/Time End Date/Time Encounter Type Admission Type Attending [facility] Care Facility Care Department Encounter ID Source 2024-08-18 15:40:00 Outpatient Lele Chand [facility] [id number] [facility] 2024-05-26 10:17:00 Outpatient Lele Chand STLMLC STLC [id number] [facility] 2024-03-30 09:54:01 Outpatient RosasJeffrey STLMLC STLC [id number] [facility] 2024-03-18 13:04:00 Outpatient Ralph Willamkenrickjohanna STLC STLC [id number] [facility] 2024-07-31 00:00:00 2024-07-31 00:00:00 Isadora Gaary, LEAD ELECTRICAL ENGINEER: [address], [place] [address], [place] [address] , [address] [facility] - GC_GCBZW_La renetta Alicea* [id number] [facility] 2024-05-21 00:00:00 2024-05-21 00:00:00 Jurgen Mix MD: [address] [place] [address] , [address] [facility] [place] - [facility] [place] - FOG_Telemed icine [id number] [facility] 2024-05-08 10:46:55 2024-05-08 23:59:00 Outpatient Daniel IVONNE ESCAMILLA SHIMIEmily [facility] RAD [id number] [facility] 2024-05-08 10:46:55 2024-05-08 23:59:00 Hospital Encounter Ivonne Escamilla [facility] .2.840.114 350.1.13.10 4.2.7.2.686 [id number] [facility] 2024-05-05 00:00:00 2024-05-05 00:00:00 Jurgen Mix MD: [address] [place], [place] [id number] , Ph. [id number] [facility] - [facility] [place] - FOG_Ofc [facility] [id number] [facility] 2024-05-04 13:25:00 2024-05-04 13:25:00 Outpatient Daniel IVONNE ESCAMILLA SHIWAN [facility] [id number] [facility] 2024-04-27 08:30:00 2024-04-27 09:00:00 Office Visit Ivonne Escamilla [facility] 1.2.840.114 350.1.13.10 4.2.7.2.686 [id number] [facility] 2024-04-27 08:30:00 2024-04-27 08:30:00 Outpatient Daniel IVONNE ESCAMILLA SHIMIEmily [facility] [id number] [facility] 2023-07-31 00:00:00 2023-07-31 00:00:00 Outpatient GC_GCBZW_Mo nical_J [facility] [id number] [facility] 2023-07-31 00:00:00 2023-07-31 00:00:00 Isadora Garay, LEAD ELECTRICAL ENGINEER: [address] [place], [place] [address], [place] [address] , [address] [facility] - GC_GCBZW_La renetta Alicea* [id number] [facility] 2023-07-30 00:00:00 2023-07-30 00:00:00 Outpatient GC_GCBZW_Mo nical_J [facility] [id number] [facility] 2022-10-31 10:45:00 2022-10-31 10:45:00 Outpatient MHIE [facility] [id number] Tereso aguilera [place] 2022-07-03 16:15:00 2022-07-04 05:59:59 Outpatient [facility] [id number] Tereso aguilera [place] 2022-05-22 15:00:00 2022-05-23 05:59:59 Outpatient [facility] [id number] Tyrondany aguilera [facility] 2022-04-05 17:00:00 2022-04-05 17:00:00 Ambulatory Pre-Reg nullFlavo r [facility] [id number] Tereso aguilera [facility] 2021-12-19 19:00:00 2021-12-19 19:00:00 Outpatient FIDE SHRESTHA [facility] [id number] [facility] 2021-10-10 13:30:00 2021-10-03 05:55:00 Inpatient Jurgen CampbellTO DAYS [id number] [facility] 2021-10-03 05:55:00 2021-10-03 05:55:00 [facility] [id number] [facility] 2021-04-11 00:00:00 2021-04-11 00:00:00 Sidney Bonilla [facility] 1.2.840.114 350.1.13.10 4.2.7.2.686 [id number] [facility] 2021-04-06 00:00:00 2021-04-06 00:00:00 Patient Secure Msg Doctor Unassigned, Varina [facility] 1.2.840.114 350.1.13.10 4.2.7.2.686 [id number] [facility] 2021-04-03 00:00:00 2021-04-03 00:00:00 Refill Doctor Unassigned, [facility] 1.2.840.114 350.1.13.10 4.2.7.2.686 [id number] [facility] 2021-04-03 00:00:00 2021-04-03 00:00:00 Patient Secure Msg Doctor Unassigned, Varina [facility] 1.2.840.114 350.1.13.10 4.2.7.2.686 [id number] [facility] 2021-04-03 00:00:00 2021-04-03 00:00:00 Refill Doctor Unassigned, Varina [facility] 1.2.840.114 350.1.13.10 4.2.7.2.686 [id number] [facility] 2020-10-07 00:00:00 2020-10-07 00:00:00 Telephone [facility] 1.2.840.114 350.1.13.10 4.2.7.2.686 [id number] [facility] 2020-09-21 00:00:00 2020-09-21 00:00:00 Telephone [facility] 1.2.840.114 350.1.13.10 4.2.7.2.686 [id number] [facility] 2020-08-09 11:50:00 2020-08-09 11:50:00 Outpatient Daniel SIOBHAN, REX [facility] [id number] [facility] 2020-07-19 10:20:00 2020-07-19 10:20:00 Outpatient Daniel SIOBHANZITA MOSLEY [facility] [id number] [facility] 2020-07-18 00:00:00 2020-07-18 00:00:[address] [facility] 1.2.840.114 350.1.13.10 4.2.7.2.686 [id number] 2020-07-18 00:00:00 2020-07-18 00:00:00 Telephone [facility]idney [facility] 1.2.840.114 350.1.13.10 4.2.7.2.686 [id number] [facility] 2020-07-15 11:11:25 2020-07-15 12:03:14 [facility] 1.2.840.114 350.1.13.10 4.2.7.2.686 [id number] 2020-07-15 11:11:25 2020-07-15 12:03:14 Office Visit LópezSidney spencer [facility] nal Building 1.2.840.114 350.1.13.10 4.2.7.2.686 [id number] [facility] 2020-07-15 11:20:00 2020-07-15 11:20:00 Outpatient SIDNEY AYON HOWARD [facility] [id number] [facility] 2020-07-08 15:00:00 2020-07-08 15:00:00 Outpatient SIDNEY AYON HOWARD [facility] [id number] [facility] 2020-05-24 00:00:00 2020-05-24 00:00:00 RefSidney Chris [facility] nal Building 1.2.840.114 350.1.13.10 4.2.7.2.686 [id number] [facility] 2020-05-20 00:00:00 2020-05-20 00:00:[address] [facility] 1.2.840.114 350.1.13.10 4.2.7.2.686 [id number] [facility] 2020-05-18 00:00:00 2020-05-18 00:00:00 Sidney Bonilla [facility] Building 1.2.840.114 350.1.13.10 4.2.7.2.686 [id number] [facility] 2020-01-22 00:00:00 2020-01-22 00:00:00 Telephone [facility] 1.2.840.114 350.1.13.10 4.2.7.2.686 [id number] [facility] 2019-10-30 11:03:09 2019-10-30 13:38:11 Office Visit [facility] 1.2.840.114 350.1.13.10 4.2.7.2.686 [id number] [facility] 2019-10-30 11:00:00 2019-10-30 11:00:00 Outpatient SIDNEY AYON HOWARD [facility] [id number] [facility] 2019-10-30 00:00:00 2019-10-30 00:00:00 Orders Only Doctor Unassigned, Varina [facility] 1.2.840.114 350.1.13.10 4.2.7.2.686 [id number] [facility] Results Test Description Test Time Test Comments Results Result Co mments Source Notes Date/Time Note Provider Source 2021-10-03 10:26:00 [facility] ([facility] DT Operative Note REPORT#:[id number] REPORT STATUS: Signed DATE:10/03/21 TIME: 102 PATIENT: JIM CANTRELL UNIT #: [id number] ROOM/BED: : 61 AGE: 61 SEX: F ATTEND: Jurgen Mix MD ADM AUTHOR: Jurgen Mix MD * ALL edits or amendments must be made on the electronic/computer document * Operative Report Operative Note Note: DATE OF SERVICE: 10/03/21 PREOPERATIVE DIAGNOSIS: right DeQuervain's tenosynovitis POSTOPERATIVE DIAGNOSIS: right DeQuervian's tenosynovitis OPERATION PERFORMED: right first dorsal compartment release SURGEON: Jurgen Mix DRUG ABUSE PROGRAM COORDINATOR SURGEON: meron steele ANESTHESIA: Local with monitored anesthesia care COMPLICATIONS: None. ESTIMATED BLOOD LOSS: Minimal TOURNIQUET TIME: 10 minutes at 250 mmHg FINDINGS: Thickened 1st dorsal compartment extensor retinaculum EPB subsheath: present and released INDICATIONS: Ms Cantrell is a 61 year old female with right DeQuervain's tenosynovitis that has been recalcitrant to conservative treatment options. Patient wishes to proceed with surgical release. Risks, benefits, and alternatives to the procedure were discussed with the patient in detail preoperatively. Risks include, but not limited to, infection, damage to blood vessels or nerves, stiffness of fingers, thumb, and wrist, and need for further surgery. Patient verbalized understanding of these risk and consented to proceed. OPERATIVE NOTE: Patient was identified in the preoperative holding area and the correct surgical site was marked. Patient was then brought to the Operating Room where a formal time-out was performed to confirm the correct patient, site, and planned operation. Monitored anesthesia care was provided by the anesthesia team. A well padded tourniquet was placed on the upper arm. Patient was then prepped and draped in the usual sterile fashion. Local anesthetic was then injected subcutaneously over the planned incision. The arm was then exsanguinated and tourniquet inflated. An approximately 3 cm longitundinal incision was made starting at the volar radial styloid extending proximally. We dissected through skin and subcutaneous tissue, being careful to retract the branches of the radial sensory nerve that is in the subcutaneous tissue dorsally. Tenotomy scissors were then used to carefully spread the underlying tissue and retractors place to expose the first dorsal compartment. Bipolar cautery used for hemostasis. The 1st dorsal compartment was then released sharply with the 15-blade longitundinally. A tenotomy scissor was then used to complete the release proximally and distally. We excised a slip of the thickened retinaculum. We then confirmed by retracting the APL tendon and the EPB tendon that there was a separate compartment for the EPB tendon which was incised and freed up. The wound was then copiously irrigated and closed with a subcuticular 4-0 monocryl suture. Dermabond was applied. A thumb spica splint was then applied. Tourniquet was deflated and the patient was transferred to recovery room without incident in stable condition. at 1026 RPT #:[id number] END OF REPORT HCATO
[2024-10-15] MEDS ORDERED: KETOROLAC 30 MG/ML INJ ONE (19:24)
[2024-10-15] MEDS ORDERED: DIPHENHYDRAMINE 50 MG/ML VIAL ONE (19:24)
[2024-10-15] MEDS ORDERED: METOCLOPRAMIDE 10 MG/2mL INJ ONE (19:25)
[2024-10-15] MEDS ORDERED: NA CHLORIDE 0.9% 1,000 ML ONE (19:25)
--- NOTE | 2024-10-15 20:34 | ER ---
Nurse's Notes [facility] Name: Cristina Cantrell Age: 64 yrs Sex: Female : 1960 Arrival Date: 10/15/2024 Time: 16:25 Bed 12 Private MD: Diagnosis: Migraine without aura, not intractable Presentation: 10/15 17:07 Chief complaint: Patient states: LEZAMA since 529 with N/V. Coronavirus screen: Client ll1 denies travel out of the [place] in the last 14 days. At this time, the client does not indicate any symptoms associated with coronavirus-19. Ebola Screen: Patient denies travel to an Ebola-affected area in the 21 days before illness onset. Initial Sepsis Screen: Does the patient meet any 2 criteria? No. Patient's initial sepsis screen is negative. Does the patient have a suspected source of infection? No. Patient's initial sepsis screen is negative. Risk Assessment: Do you want to hurt yourself or someone else? Patient reports no desire to harm self or others. Onset of symptoms was October 15, 2024. 17:07 Method Of Arrival: Ambulatory ll1 17:07 Acuity: JOON 2 ll1 Triage Assessment: 17:07 General: Appears uncomfortable, Behavior is calm, cooperative, appropriate for age. ll1 Pain: Complains of pain in head Pain currently is 10 out of 10 on a pain scale. Neuro: Reports headache weakness. GI: Reports nausea. 21:00 Pain: Also complains of no other associated symptoms. ha1 21:00 Headache History: The patient has had previous headaches and this one is similar to ha1 previous episodes. Historical: - Allergies: 16:57 No Known Allergies; ll1 - PMHx: 16:57 Diabetes - NIDDM; Hypercholesterolemia; Hypertension; Migraines; ll1 - PSHx: 16:57 section; partial hysterectomy; right foot; ll1 - Immunization history:: Adult Immunizations up to date. - Infectious Disease History:: Denies. - Social history:: Smoking status: Patient denies any tobacco usage or history of. Screenin:00 [facility] ED Fall Risk Assessment (Adult) History of falling in the last 3 months, ha1 including since admission No falls in past 3 months (0 pts) Confusion or Disorientation No (0 pts) Intoxicated or Sedated No (0 pts) Impaired Gait No (0 pts) Mobility Assist Device Used No (0 pt) Altered Elimination No (0 pt) Score/Fall Risk Level 0 - 2 = Low Risk Oriented to surroundings, Maintained a safe environment, Educated pt \T\ family on fall prevention, incl call for assistance when getting out of bed, Hourly rounding (assess needs \T\ fall precautionary measures) done. Abuse screen: Denies threats or abuse. Denies injuries from another. Nutritional screening: No deficits noted. Tuberculosis screening: No symptoms or risk factors identified. Assessment: 19:50 General: Appears uncomfortable, Behavior is cooperative. Pain: Complains of pain in ha1 HEADACHE Pain currently is 8 out of 10 on a pain scale. Quality of pain is described as aching. Neuro: Level of Consciousness is awake, alert, obeys commands, Oriented to person, place, time, situation, Reports headache photophobia. Cardiovascular: Capillary refill < 3 seconds Patient's skin is warm and dry. Respiratory: Airway is patent Respiratory effort is even, unlabored, Respiratory pattern is regular, symmetrical. GI: Abdomen is round non-distended, Reports nausea. 20:50 Reassessment: Patient and/or family updated on plan of care and expected duration. Pain ha1 level reassessed. Patient is alert, oriented x 3, equal unlabored respirations, skin warm/dry/pink. Patient states feeling better. Patient states symptoms have improved. Vital Signs: 17:07 BP 152 / 109; Pulse 93; Resp 17; Temp 97.3; Pulse Ox 99% ; Weight 104.33 kg; Height 5 ll1 ft. 11 in. ; Pain 10/10; 20:30 BP 147 / 85; Pulse 82; Resp 17 S; Pulse Ox 99% on R/A; ha1 17:07 Body Mass Index 32.08 (104.33 kg, 180.34 cm) ll1 17:07 Pain Scale: Adult ll1 [place] Coma Score: 23:51 Eye Response: spontaneous(4). Motor Response: obeys commands(6). Verbal Response: sb4 oriented(5). Total: 15. ED Course: 16:30 Patient arrived in ED. al6 16:57 Arm band placed on. ll1 17:09 Triage completed. ll1 17:09 Stephanie Mercado PA-C is PHCP. sb4 17:09 Nick Palmer MD is Attending Physician. sb4 19:00 Patient has correct armband on for positive identification. Placed in gown. Bed in low ha1 position. Call light in reach. Side rails up X 1. 19:11 Inserted saline lock: 20 gauge in right antecubital area, using aseptic technique. oe Flushed with 10 mL NS. 20:00 Provided Education on: MEDICATION ADMINISTRATION . ha1 21:00 No provider procedures requiring assistance completed. IV discontinued, intact, ha1 bleeding controlled, No redness/swelling at site. Pressure dressing applied. Administered Medications: 19:30 Drug: NS 0.9% IV 1000 ml IV at 1000 ml once; to be given as a bolus over 60 minutes ha1 Route: IV; Rate: 1000 ml; Site: right antecubital; 21:00 Follow up: Response: No adverse reaction; IV Status: Completed infusion ha1 19:30 Drug: diphenhydrAMINE IVP 25 mg IVP once Route: IVP; Site: right antecubital; ha1 20:00 Follow up: Response: No adverse reaction; Marked relief of symptoms ha1 19:32 Drug: Ketorolac IVP 30 mg IVP once Route: IVP; Site: right antecubital; ha1 20:00 Follow up: Response: No adverse reaction; Marked relief of symptoms; Pain is decreased ha1 19:35 Drug: metoCLOPramide IVP 10 mg IVP once; over 1 to 2 minutes Route: IVP; Site: right ha1 antecubital; 20:00 Follow up: Response: No adverse reaction; Marked relief of symptoms ha1 Medication: 19:00 VIS not applicable for this client. ha1 Outcome: 20:33 Discharge ordered by . sb4 21:10 Discharged to home ambulatory, with family, ha1 21:10 Condition: stable 21:10 Discharge instructions given to patient, family, Instructed on discharge instructions, follow up and referral plans. Demonstrated understanding of instructions, follow-up care, 21:10 Patient left the ED. ha1 Signatures: Noel Hughes Lynsay, RN RN ll1 Tavia Baxter RN RN ha1 Stephanie Mercado PA-C PAAfua sb4 Luz Elena Bailon
--- NOTE | 2024-10-15 20:34 | EDPHYS ---
Physician Documentation [facility] Name: Cristina Cantrell Age: 64 yrs Sex: Female : 1960 Arrival Date: 10/15/2024 Time: 16:25 Bed 12 Private MD: ED Physician Nick Palmer HPI: 10/15 23:51 This 64 yrs old Female presents to ER via Ambulatory with complaints of Headache. sb4 23:51 Patient reports a migraine that began yesterday, it was not very bad, but became much sb4 worse upon waking this morning. States that she took her Nurtec without improvement. She then took a promethazine without any improvement so came to the ED. States these are similar to her prior migraine attacks. Endorses nausea and sensitivity to light. No aura, no unilateral weakness, paresthesias. Historical: - Allergies: 16:57 No Known Allergies; ll1 - PMHx: 16:57 Diabetes - NIDDM; Hypercholesterolemia; Hypertension; Migraines; ll1 - PSHx: 16:57 section; partial hysterectomy; right foot; ll1 - Immunization history:: Adult Immunizations up to date. - Infectious Disease History:: Denies. - Social history:: Smoking status: Patient denies any tobacco usage or history of. ROS: 23:51 Constitutional: Negative for fever, chills, and weight loss, sb4 23:51 Neuro: Positive for headache, 23:51 All other systems are negative, Exam: 23:51 Head/Face: Normocephalic, atraumatic. Eyes: Extra-ocular motions intact. Periorbital sb4 areas with no swelling, redness, or edema. ENT: Mucous membranes moist. Cardiovascular: Regular rate and rhythm with a normal S1 and S2. Respiratory: No increased work of breathing, no retractions or nasal flaring. Abdomen/GI: Soft, non-tender, no distension. Skin: Warm, dry with normal turgor. Normal color with no rashes, no lesions, and no evidence of cellulitis. 23:51 Constitutional: The patient appears alert, awake, uncomfortable, Vital Signs: 17:07 BP 152 / 109; Pulse 93; Resp 17; Temp 97.3; Pulse Ox 99% ; Weight 104.33 kg; Height 5 ll1 ft. 11 in. ; Pain 10/10; 20:30 BP 147 / 85; Pulse 82; Resp 17 S; Pulse Ox 99% on R/A; ha1 17:07 Body Mass Index 32.08 (104.33 kg, 180.34 cm) ll1 17:07 Pain Scale: Adult ll1 [place] Coma Score: 23:51 Eye Response: spontaneous(4). Motor Response: obeys commands(6). Verbal Response: sb4 oriented(5). Total: 15. MDM: 17:11 Medical Screening Exam initiated sb4 23:51 Data reviewed: vital signs, nurses notes, and as a result, I will discharge patient. sb4 Counseling: I had a detailed discussion with the patient and/or guardian regarding the historical points, exam findings, and any diagnostic results supporting the discharge/admit diagnosis, the need for outpatient follow up, for definitive care, to return to the emergency department if symptoms worsen or persist or if there are any questions or concerns that arise at home. 10/15 17:12 Order name: IV Start; Complete Time: 19:43 sb4 Administered Medications: 19:30 Drug: NS 0.9% IV 1000 ml IV at 1000 ml once; to be given as a bolus over 60 minutes ha1 Route: IV; Rate: 1000 ml; Site: right antecubital; 21:00 Follow up: Response: No adverse reaction; IV Status: Completed infusion ha1 19:30 Drug: diphenhydrAMINE IVP 25 mg IVP once Route: IVP; Site: right antecubital; ha1 20:00 Follow up: Response: No adverse reaction; Marked relief of symptoms ha1 19:32 Drug: Ketorolac IVP 30 mg IVP once Route: IVP; Site: right antecubital; ha1 20:00 Follow up: Response: No adverse reaction; Marked relief of symptoms; Pain is decreased ha1 19:35 Drug: metoCLOPramide IVP 10 mg IVP once; over 1 to 2 minutes Route: IVP; Site: right ha1 antecubital; 20:00 Follow up: Response: No adverse reaction; Marked relief of symptoms ha1 Disposition Summary: 10/15/24 20:33 Discharge Ordered Notes: Location: Home sb4 Problem: new sb4 Symptoms: are resolved sb4 Condition: Stable sb4 Diagnosis - Migraine without aura, not intractable sb4 Followup: sb4 - With: Private Physician - When: 1 week - Reason: Recheck today's complaints, Re-evaluation by your physician Discharge Instructions: - Discharge Summary Sheet sb4 - Migraine Headache, [id number] sb4 Forms: - Patient Portal Instructions sb4 - Leadership Thank You Letter sb4 Signatures: Christa Crowell RN RN ll1 Tavia Baxter RN RN ha1 Stephanie Mercado, ELVIRA FELIX sb4
[2024-10-15 21:34] VITALS: BP 152/109; TEMP 97.3; O2SAT 99
== END 2024-10-15 21:10 | disposition home or self-care (01) ==
LOC: ER 16:25
DX: G43.009 Migraine without aura, not intractable, without status migrainosus (principal); E11.9 Type 2 diabetes mellitus without complications; I10 Essential (primary) hypertension; E78.00 Pure hypercholesterolemia, unspecified
CPT/HCPCS: 96361; 96375; 96374; 99284; J2765; J1200; J7030